=== PATIENT | male | born 1955 | race Caucasian/White ===

== ENCOUNTER → 2020-03-31 15:10 | Outpatient (CLI) | payer BC, SELFPAY ==
--- NOTE | ~2020-03-31 | XR_ITS ---
XR cervical spine 4-5V 03/31/2020 15:37 Indication: Neck pain. Numbness of the hands. Procedure: 5 views of the cervical spine Comparison: No prior studies for comparison. Findings: There is disc narrowing at C5-6 and C6-7 with prominent bridging osteophytes. There is advanced multilevel facet and uncinate hypertrophy. 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 No prevertebral soft tissue abnormality. Lung apices are normal. Remain ing of normal cervical lordosis. Impression: 1: Moderate-severe cervical spondylosis. Reviewed, dictated and finalized at location B. Impression: 1: Moderate-severe cervical spondylosis.
== END ==
PROVIDERS: PCP Family Medicine; Visit Provider Family Medicine
DX: R20.2 Paresthesia of skin (principal); M47.892 Other spondylosis, cervical region
CPT/HCPCS: 72050

== ENCOUNTER 2020-08-27 13:32 | Outpatient (CLI) | payer BC, SELFPAY | END 2020-08-27 13:33 | disposition home or self-care (01) | LOC: ANHCOVIDVC 13:32 | PROVIDERS: PCP Family Medicine | DX: Z23 Encounter for immunization (principal) | CPT/HCPCS: 0001A; 91300 ==

== ENCOUNTER 2020-09-17 13:54 | Outpatient (CLI) | payer BC, SELFPAY | END 2020-09-17 13:55 | disposition home or self-care (01) | LOC: ANHCOVIDVC 13:54 | PROVIDERS: PCP Family Medicine | DX: Z23 Encounter for immunization (principal) | CPT/HCPCS: 0002A; 91300 ==

== ENCOUNTER → 2021-02-03 03:29 | Outpatient (CLI) | payer BC, SELFPAY ==
[2021-02-03 20:00] LABS: SARS-CoV-2 RNA PCR Negative
== END ==
PROVIDERS: Physician Assistant; PCP Family Medicine; Visit Provider Family Medicine
DX: R05 Cough (principal); Z20.822 Contact with and (suspected) exposure to COVID-19
CPT/HCPCS: C9803; U0003; U0005

== ENCOUNTER 2021-08-29 08:09 | Outpatient (CLI) | payer MEDICARE, SELFPAY ==
--- NOTE | 2021-08-29 09:17 | ECG_ITS ---
Measurements Intervals [place] Rate: 68 P: 45 [place]: 209 QRS: 53 QRSD: 115 T: 2 QT: 417 QTc: 445 Interpretive Statements SINUS RHYTHM MODERATE INTRAVENTRICULAR CONDUCTION DELAY (INCOMPLETE RIGHT BUNDLE BRANCH BLOCK) ABNORMAL ECG NO PREVIOUS ECG AVAILABLE FOR COMPARISON Electronically Signed On 08-29-2021 15:37:56 CDT by Doug Stock M.D.
[2021-08-29 09:50] LABS: Basophils Absolute Auto 0.1 K/mm3 (0.0-0.1); Basophils Percent Auto 1.9 % (0.2-1.2); Eosinophils Absolute Auto 0.4 K/mm3 (0-0.3); Eosinophils Percent Auto 6.6 % (0-4.4); Hematocrit 42.5 % (42.0-52.0); Hemoglobin 14.8 g/dL (14.0-18.0); Immature Granulocyte Absolute 0.02 K/mm3 (0.00-0.031); Immature Granulocyte Percent A 0.3 % (0-0.5); Lymphocytes Absolute Auto 2.17 K/mm3 (0.9-3.2); Lymphocytes Percent Auto 36.6 % (18.3-44.2); Mean Corpuscular HGB Conc 34.8 g/dl (32-36); Mean Corpuscular Hemoglobin 31.5 pg (26-34); Mean Corpuscular Volume 90.4 fl (80-100); Mean Platelet Volume 9.8 fl (7.4-10.4); Monocytes Absolute Auto 0.7 K/mm3 (0.1-0.6); Monocytes Percent Auto 11.5 % (2.6-8.5); Neutrophils Absolute Auto 2.6 K/mm3 (1.3-6.7); Neutrophils Percent Auto 43.1 % (45.5-73.1); Platelet Count Result 248 k/mm3 (150-375); Red Cell Distribution Width 13.2 % (11.5-14.5); White Blood Count 5.9 K/mm3 (4.5-10.0)
[2021-08-29 09:56] LABS: Add Urine Microscopic? YES; Appearance Urine Cloudy (Clear); Bilirubin Urine Negative (Negative); Blood Urine 1+ (Negative); Color Urine Yellow (Yellow); Glucose Urine UA Negative (Negative); Ketones Urine Trace mg/dL (Negative); Leukocyte Esterase Ur Negative LEU/UL (Negative); Nitrate Urine Negative (Negative); Protein Urine Negative (Negative); Specific Grav Ur 1.017 (1.001-1.035); Urobilinogen Urine Negative mg/dL (<2.0); WBC Urine 0-3 /hpf
[2021-08-29 10:01] LABS: INR 1.1; Partial Thromboplastin Time 25.9 SECONDS (22.3-36.8)
[2021-08-29 10:05] LABS: Albumin Level 4.6 g/dL (3.5-5.1); Anion Gap 8 mmol/L (8-16); Blood Urea Nitrogen 18 mg/dL (9-20); Calcium 9.1 mg/dL (8.4-10.2); Carbon Dioxide 27 mmol/L (22-30); Chloride 102 mmol/L (98-107); Estimated Glomerular Filt Rate > 60; Glucose 119 mg/dL (65-110); Potassium 3.5 mmol/L (3.4-5.0); Sodium 137 mmol/L (137-145)
[2021-08-29 10:06] LABS: Urine Cotinine NEGATIVE
[2021-08-29 10:08] LABS: Hemoglobin A1C 5.4 % (<5.7)
== END 2021-08-29 08:10 | disposition home or self-care (01) ==
LOC: ANHSURGERY 08:18
PROVIDERS: PCP Family Medicine; Visit Provider Orthopaedic Surgery
DX: M17.11 Unilateral primary osteoarthritis, right knee (principal); Z01.818 Encounter for other preprocedural examination; I45.9 Conduction disorder, unspecified
CPT/HCPCS: 80048; 80307; 81001; 82040; 83036; 85025; 85610; 85730; 87081; 93005

== ENCOUNTER 2021-09-14 00:45 | Day surgery (SDC) | payer MEDICARE, SELFPAY ==
[2021-08-29 08:39] VITALS: BP 149/84; PULSE 69; RESP 16; TEMP 36.4; O2SAT 95; BMI 31.7
--- NOTE | 2021-08-29 08:53 | PC.NURSE ---
Report to the Outpatient Waiting Room, entrance under the green pavilion located off [facility], at time ___10:00AM____ on date __09/14/21 . OR Time: __12:00PM . - You and your visitor will be asked a series of questions to screen for COVID 19 for your protection. - A mask is required within the hospital. Preoperative COVID Testing Requirements: No COVID Test needed if: (proof is required; if not received patient will have Rapid Test prior to entry) - Patient has received COVID Vaccine at least 14 days prior to procedure date or - Patient has positive COVID test result within last 90 days of surgery date. COVID Test needed if above criteria is not met If not COVID vaccinated a COVID test must be conducted within 72 hours of surgery and patient is asked to isolate self from time of testing until procedure. You will go to the [facility] for your COVID testing. The [employer] [facility] site is located at the corner of [address] [facility]. You will only be called if COVID results are positive and your surgeon may reschedule your elective surgery date. Patients may have clear liquids (water, carbonated beverages, clear teas, apple juice) until 3 hours prior to surgery with a maximum of 20 ounces. - No food from midnight until time of surgery - Infants may have breast milk until 4 hours before surgery, formula 6 hours prior to surgery. - Children will be allowed to drink immediately following surgery. If applicable, please bring a bottle or sippy cup to assist with drinking. Juice, water, soda, and popsicles are readily available. For infants on formula, please bring formula the day of surgery. Pacifiers are allowed. Take the following medications with a SIP of water the morning of surgery: __AMLODIPINE, BUSPIRONE, OXYCODONE NEEDED, PRESTIQ Medications to discontinue per physician ____HOLD IBUPROFEN 7 DAYS PRE-OP Date to take last dose 09/07/21 Please no make-up, nail bermudian, hairspray, perfume, deodorant, or body powder the day of surgery. No jewelry (including any body piercings) or valuables the day of surgery, leave them at home. Please take a shower or bath the night before, or the morning of, surgery with an antibacterial soap. Wear comfortable, loose fitting clothing. Children are encouraged to wear pajamas. - Jewelry must be removed prior to entering the operating room. Rings and piercings that are not removed may be cut off. - The hospital will not accept responsibility for valuables. - Please leave all valuables, including medications, at home the day of surgery. If you are going home after surgery, a licensed public transit trolley driver must drive you home. - NO public transportation without another adult. - We recommend that an adult stay with you for 24 hours following discharge. - We also recommend that you do not drive, make important decision, drink alcoholic beverages, or take any drugs that were not prescribed by your health care provider for at least 24 hours after your discharge time. For Pediatric surgeries, we recommend two adults accompany the child home (only one inside the building at this time). One visitor will be allowed to accompany the patient into the hospital. Patients visitor will be instructed to remain with patient at all times or leave the building. We will allow the visitor to come back to the postoperative area when patient is ready. Follow any additional instructions given to you from your surgeon. Telephone instructions given to ___PATIENT and asked if any additional questions and then verbalized understanding. Patient advised to call surgeon office or pre surgery nurse liaison [phone] if any additional questions.
--- NOTE | 2021-09-13 17:43 | WPDANESEPPF ---
Anes - Initial Pre Proc Eval Procedure: Operation Date: 09/14/21 12:00 Proposed Procedures p Right Total Knee Arthroplasty - Slick Collado MD Date/Time: 09/13/21 17:43 Surgeon: Slick Collado MD Pre Op Diagnosis: right knee DJD Patient Data Age: 66 Gender: M Height: 1.83 m Weight: 106.2 kg Last Vital Signs Temp 36.4 C L 08/29/21 08:39 Pulse 69 08/29/21 08:39 Resp 16 08/29/21 08:39 BP 149/84 H 08/29/21 08:39 Pulse Ox 95 08/29/21 08:39 Allergies Allergy/AdvReac Type Severity Reaction Status Date / Time lactose AdvReac Unknown Diarrhea Verified 09/07/21 13:14 Home Medications Medication Instructions Recorded Confirmed Type clindamycin phosphate 1 % topical 1 applic TOPICAL BID #180 ea 06/08/21 09/07/21 Rx swab fenofibrate 160 mg tablet 160 mg PO DAILY #90 tablet 07/04/21 09/07/21 Rx buspirone 15 mg tablet 15 mg PO BID #180 tablet 07/11/21 09/07/21 Rx cyclobenzaprine 10 mg tablet 10 mg PO TID PRN #90 tablet 08/24/21 09/07/21 Rx amlodipine 10 mg PO QAM 08/29/21 09/07/21 History desvenlafaxine succinate 100 mg PO QAM 08/29/21 09/07/21 History hydrochlorothiazide 25 mg PO QAM 08/29/21 09/07/21 History ibuprofen 800 mg PO Q6H PRN 08/29/21 09/07/21 History losartan 25 mg PO QAM 08/29/21 09/07/21 History tacrolimus 1 applic TOPICAL BID PRN 08/29/21 09/07/21 History tamsulosin 0.4 mg PO BID 08/29/21 09/07/21 History oxycodone 20 mg tablet 20 mg PO TID PRN #90 tablet 09/01/21 09/07/21 Rx zolpidem 5 mg tablet 5 mg PO QHS #30 tablet 09/01/21 09/07/21 Rx Results Review: All pre-operative results and documents have been reviewed as part of the pre-operative evaluation. ON LICENSE OF [facility] Past Medical History Medical History Cervical spinal stenosis Chronic narcotic use Degenerative joint disease of knee HLD (hyperlipidemia) HTN (hypertension) Injury of right knee Knee joint effusion Obesity Right knee DJD Right knee pain Tobacco dependence Surgical History Surgical History History of laminectomy History of tonsillectomy S/P rotator cuff repair bilateral Family History Family History Father Cerebrovascular accident Sibling Malignant neoplasm of prostate Mother Family history of lung cancer Social History Social History Social History: Smoking packs per day: 0.75 Smoking cigarettes per day: 15.0 Years smoked: 15 Smoking pack-years: 11.25 Smoking status: Former smoker Tobacco type: cigarettes Second hand tobacco smoke exposure: Yes Smoking end date: 06/11/20 Alcohol intake: current Drinks per week: 2 Substance use: never Substance use type: does not use Additional living arrangements comments: Gender identity (if verbalized by the patient): Male Sexual Orientation (if Verbalized by the Patient): Straight or Heterosexual Spiritual care concerns: No Anes - Eval Final PreProcedure Day of Procedure 09/13/21 17:43 Patient weight: obese Heart: regular rate and rhythm Lungs: clear to auscultation and normal air movement Airway: Mallampati scale class II Neurological: alert and oriented Last oral intake: >/= 8 hours ASA classification: III Emergent: no Anesthetic plan: proceed Anesthesia type and monitoring: general LMA Results Review: All pre-operative results and documents have been reviewed as part of the pre-operative evaluation. Informed Consent: The patient's anesthetic plan and its attendant risks and benefits were discussed with the patient/family/POA. Questions were solicited and answers provided to the satisfaction of the patient/family/POA.
--- NOTE | 2021-09-13 17:44 | WPDANESPNB ---
Anes - Peripheral Nerve Block Date/Time: 09/13/21 17:44 I have discussed with the patient/family/POA the placement of a peripheral nerve block for post-operative pain management, including associated risks, benefits, complications, and side effects. Alternative methods of post-operative analgesia were detailed. Questions were solicited and answers provided to the satisfaction of the patient/family/POA. Time-Out: A pre-procedural Time-Out was completed immediately before starting the procedure and confirmed: Patient Identification, Site, Procedure, Patient Position and the Availability of Requisite Equipment. Clinical Indications: Acute post-operative pain management requested by the operative surgeon. Nerve Block Insertion Note Needle: 22 gauge, stimulating, insulated echogenic needle.
[2021-09-14] VITALS (9 sets, daily range): BP systolic 110–144; BP diastolic 53–79; PULSE 66–88; RESP 15–18; TEMP 36.1–36.8; O2SAT 90–97
--- NOTE | ~2021-09-14 | XR_ITS ---
EXAMINATION: XR knee RT 2V DATE: 09/14/2021 14:52 INDICATION: Postoperative evaluation following right total knee arthroplasty. TECHNIQUE: Anteroposterior and lateral views of the right knee were obtained. COMPARISON: 08/18/2021 FINDINGS: Right total knee arthroplasty without patellar resurfacing appears well seated and in near anatomic a lignment. No fractures identified. Moderate-sized enthesophyte at the proximal pole of the patella. Skin antony and expected postoperative subcutaneous, intramedullary and intra-articular gas. Suggest ion of a wound VAC overlying the cephalad margin of the anterior surgical wound. IMPRESSION: 1. Right total knee arthroplasty, negative for postoperative purposes. Reviewed, dictated and finalized at location B.
--- NOTE | 2021-09-14 07:28 | WPDHPUPDATE1 ---
History and Physical Update Update Date/Time: 09/14/21 07:28 History and Physical has been reviewed, including an updated exam of the patient. There are NO changes in the patient's condition. Risks, benefits, and alternatives have been discussed and questions answered. Patient agrees to proceed with procedure.
--- NOTE | 2021-09-14 11:06 | WPDANESEPPF ---
Anes - Initial Pre Proc Eval Procedure: Operation Date: 09/14/21 12:00 Proposed Procedures p Right Total Knee Arthroplasty - Slick Collado MD Date/Time: 09/14/21 11:06 Surgeon: Slick Collado MD Pre Op Diagnosis: right knee DJD Patient Data Age: 66 Gender: M Height: 1.83 m Weight: 106.2 kg Last Vital Signs Temp 36.4 C L 08/29/21 08:39 Pulse 69 08/29/21 08:39 Resp 16 08/29/21 08:39 BP 149/84 H 08/29/21 08:39 Pulse Ox 95 08/29/21 08:39 Allergies Allergy/AdvReac Type Severity Reaction Status Date / Time lactose AdvReac Unknown Diarrhea Verified 09/07/21 13:14 Home Medications Medication Instructions Recorded Confirmed Type clindamycin phosphate 1 % topical 1 applic TOPICAL BID #180 ea 06/08/21 09/07/21 Rx swab fenofibrate 160 mg tablet 160 mg PO DAILY #90 tablet 07/04/21 09/07/21 Rx buspirone 15 mg tablet 15 mg PO BID #180 tablet 07/11/21 09/07/21 Rx cyclobenzaprine 10 mg tablet 10 mg PO TID PRN #90 tablet 08/24/21 09/07/21 Rx amlodipine 10 mg PO QAM 08/29/21 09/07/21 History desvenlafaxine succinate 100 mg PO QAM 08/29/21 09/07/21 History hydrochlorothiazide 25 mg PO QAM 08/29/21 09/07/21 History ibuprofen 800 mg PO Q6H PRN 08/29/21 09/07/21 History losartan 25 mg PO QAM 08/29/21 09/07/21 History tacrolimus 1 applic TOPICAL BID PRN 08/29/21 09/07/21 History tamsulosin 0.4 mg PO BID 08/29/21 09/07/21 History oxycodone 20 mg tablet 20 mg PO TID PRN #90 tablet 09/01/21 09/07/21 Rx zolpidem 5 mg tablet 5 mg PO QHS #30 tablet 09/01/21 09/07/21 Rx Patient hx anesthesia problems: none Family hx anesthesia problems: none Results Review: All pre-operative results and documents have been reviewed as part of the pre-operative evaluation. PMFSH Past Medical History Medical History Cervical spinal stenosis Chronic narcotic use Degenerative joint disease of knee HLD (hyperlipidemia) HTN (hypertension) Injury of right knee Knee joint effusion Obesity Right knee DJD Right knee pain Tobacco dependence Surgical History Surgical History History of laminectomy History of tonsillectomy S/P rotator cuff repair bilateral Family History Family History Father Cerebrovascular accident Sibling Malignant neoplasm of prostate Mother Family history of lung cancer Social History Social History Social History: Smoking packs per day: 0.5 Smoking cigarettes per day: 10.0 Years smoked: 15 Smoking pack-years: 7.50 Smoking status: Former smoker Tobacco type: cigarettes Second hand tobacco smoke exposure: Yes Smoking end date: 06/11/20 Alcohol intake: current Drinks per week: 2 Substance use: never Substance use type: does not use Living arrangements: with family Additional living arrangements comments: Gender identity (if verbalized by the patient): Male Sexual Orientation (if Verbalized by the Patient): Straight or Heterosexual Spiritual care concerns: No Anes - Eval Final PreProcedure Day of Procedure 09/14/21 11:06 Patient weight: obese Heart: regular rate and rhythm Lungs: decreased breath sounds Airway: Mallampati scale class II Neurological: alert and oriented Last oral intake: >/= 8 hours ASA classification: III Emergent: no Anesthetic plan: proceed Anesthesia type and monitoring: general LMA and standard monitoring Results Review: All pre-operative results and documents have been reviewed as part of the pre-operative evaluation. Informed Consent: The patient's anesthetic plan and its attendant risks and benefits were discussed with the patient/family/POA. Questions were solicited and answers provided to the satisfaction of the patient/family/POA.
[2021-09-14] MEDS: LACTATED RINGERS 1,000 ML 30 ML IV CONT ×2 (11:20→14:40)
[2021-09-14] MEDS: ACETAMINOPHEN 500 MG TABLET 1000 MG PO (11:23)
[2021-09-14] MEDS: TRANEXAMIC ACID 1,000MG/ISO100 1,000 MG/100 ML BAG 200 MG IVPB (11:23)
[2021-09-14] MEDS: ceFAZolin 2 GM/D5W 50 ML 2 GM/50 ML BAG IVPB ×2 (11:51→18:30)
--- NOTE | 2021-09-14 12:22 | WPDANESPNB ---
Anes - Peripheral Nerve Block Date/Time: 09/14/21 12:22 I have discussed with the patient/family/POA the placement of a peripheral nerve block for post-operative pain management, including associated risks, benefits, complications, and side effects. Alternative methods of post-operative analgesia were detailed. Questions were solicited and answers provided to the satisfaction of the patient/family/POA. Time-Out: A pre-procedural Time-Out was completed immediately before starting the procedure and confirmed: Patient Identification, Site, Procedure, Patient Position and the Availability of Requisite Equipment. Clinical Indications: Acute post-operative pain management requested by the operative surgeon. Nerve Block Insertion Note Anes-nerve block: adductor canal right Patient position: supine Skin prep: chlorhexidine Needle: 22 gauge, stimulating, insulated echogenic needle. Needle length: 80 mm Technique: ultrasound Technique comment: mid2mg, [id number] Injectate: bupivacaine 0.5% with epi 5 mcg/ml (30ml no epi) Observations: tolerated well Complications: none Procedure start time:: 1135 Procedure end time:: 1147
[2021-09-14] MEDS: GENTAMICIN BONE CEMENT REFOBACIN 1 EACH TOPICAL (13:15)
[2021-09-14] MEDS: TRANEXAMIC ACID 1,000 MG/10 ML AMPUL 1000 MG IV PUSH (13:38)
--- NOTE | 2021-09-14 15:11 | W.PM.PROC2 ---
Procedure Note - Detailed Date of Procedure 09/14/21 Pre-op Diagnosis right knee DJD Post-op Diagnosis Same Procedure Performed R TKA Surgeon Slick Collado MD Anesthesia General Description of Procedure THE RIGHT KNEE WAS PREPPED AND DRAPED IN THE STERILE FASHION. THERE WAS A 20 DEGREE FLEXION CONTRACTURE. A MIDLINE SKIN INCISION WAS MADE. HE HAD MULTIPLE VARICOSITIES UNDER THE SKIN AND THE PERIARTICULAR REGION. A MEDIAL PARAPATELLAR ARTHROTOMY WAS MADE. THE PATELLA WAS EVERTED. THERE WAS TRICOMPARTMENT DJD. THERE WAS MINIMAL PATELLA DJD. AN INTRAMEDULLARY FLOYD WAS PLACED IN THE FEMUR. A DISTAL FEMORAL CUT WAS MADE IN 5 DEGREES OF VALGUS REMOVING APPROXIMATELY 11 MM OF BONE FROM THE DISTAL FEMUR. THE FEMUR WAS SIZED TO 70. A FEMORAL CUTTING BLOCK WAS PLACED IN 3 DEGREES OF EXTERNAL ROTATION AND IN ALIGNMENT WITH ALEXEI'S LINE AND THE TRANSEPICONDYLAR AXIS. ANTERIOR POSTERIOR AND CHAMFER CUTS WERE MADE. THE CUTS WERE EXCELLENT. NEXT AN INTRAMEDULLARY CUTTING GUIDE WAS PLACED IN THE TIBIA. A TRANS TIBIAL CUT WAS MADE ALONG THE LONG AXIS OF THE TIBIA. APPROXIMATELY 10 MM OF BONE WAS REMOVED FROM THE HIGH SIDE OF THE TIBIA. THE TIBIA WAS THEN PLANED TO A SMOOTH SURFACE. POSTERIOR FEMORAL OSTEOPHYTES WERE REMOVED FROM THE FEMORAL CONDYLES. AN 83 TIBIAL TRIAL WAS PLACED IN ALIGNMENT WITH THE 1/3 MEDIAL ASPECT OF THE TIBIAL TUBERCLE. THEN A 70 FEMORAL TRIAL COMPONENT WAS PLACED. BOTH HAD EXCELLENT FITS. EVENTUALLY A 12 MM CR POLYETHYLENE TRIAL COMPONENT WAS PLACED. THE KNEE WAS TAKEN THROUGH A RANGE OF MOTION. THE KNEE CAME OUT TO FULL EXTENSION. THERE WAS NO ABNORMAL TILT TO THE PATELLA. THERE WAS GOOD A/P AND VARUS/VALGUS STABILITY. THERE WAS NO EXCESSIVE ROLL BACK WITH FLEXION. THE TRIAL COMPONENTS WERE REMOVED. THEN A 70 FEMORAL COMPONENT AND 83 TIBIAL COMPONENT WITH A 12 CR POLYETHYLENE COMPONENT WERE CEMENTED INTO PLACE. ONCE THE CEMENT WAS HARD THE KNEE WAS TAKEN THROUGH A ROM AGAIN AND FOUND TO BE STABLE WITH NO PATELLA TILT NO EXCESSIVE ROLL BACK WITH FLEXION AND GOOD STABILITY WITH COMPLETE AND FULL EXTENSION. THE KNEE WAS IRRIGATED WITH STERILE BETADINE AND WATER FOR ABOUT 3 MINUTES. THE BLEEDERS WERE CAUTERIZED. THE ARTHROTOMY WAS REPAIRED WITH NUMBER 1 VICRYL. THE SUB CUTANEOUS LAYER WITH 2-0 VICRYL AND THE SKIN WITH TAMMIE. THE WOUND WAS WASHED AND A STERILE PROVENA DRESSING WAS APPLIED. PATIENT WAS EXTUBATED. Estimated Blood Loss -200.0 Pathology None sent Complications No immediate complications Condition Stable Disposition PACU
--- NOTE | 2021-09-14 16:58 | ADMGEN ---
This patient, Anthony Chen III, was admitted to Medical Room 246-01. Patient/family oriented to hospital policies and general routines including ID bracelet, bed and alarms, visiting hours, pain management, procedures, bathroom and other care routines, personal items, smoking policy, room service/diet, and visiting hours. Information on how to activate the Rapid Response Team has been discussed. Patient/Family are encouraged to report perceived risks to care and to ask questions if they do not understand what they are told or what they should do.
[2021-09-14] MEDS: TAMSULOSIN HCL 0.4 MG CAPSULE PO (17:05)
[2021-09-14] MEDS: SENNA/DOCUSATE SODIUM TABLET 2 TAB PO (17:05)
[2021-09-14] MEDS: KETOROLAC 15 MG/ML VIAL (*BKC) IV PUSH ×2 (17:06→23:49)
[2021-09-14] MEDS: SODIUM CHLORIDE 0.9% IV 1,000 ML 125 ML IV CONT (17:44)
[2021-09-14] MEDS: ZOLPIDEM TARTRATE (*CRX) 5 MG TABLET PO (20:44)
[2021-09-14] MEDS: oxyCODONE/ACETAMINOPHEN (*CRX) 5-325 MG TABLET 2 TABLET PO (20:44)
[2021-09-15 01:44] VITALS: BP 124/66; PULSE 57; RESP 18; TEMP 36.4; O2SAT 93
[2021-09-15] MEDS: oxyCODONE/ACETAMINOPHEN (*CRX) 5-325 MG TABLET 1 TABLET PO ×3 (02:24→12:34)
[2021-09-15] MEDS: ceFAZolin 2 GM/D5W 50 ML 2 GM/50 ML BAG IVPB ×2 (02:24→10:39)
[2021-09-15] MEDS: KETOROLAC 15 MG/ML VIAL (*BKC) IV PUSH ×2 (05:05→11:53)
[2021-09-15 06:00] VITALS: BP 118/64; PULSE 73; RESP 16; TEMP 36.6; O2SAT 96
[2021-09-15 06:00] LABS: Basophils Percent Auto 0.2 % (0.2-1.2); Hematocrit 35.6 % (42.0-52.0); Hemoglobin 11.7 g/dL (14.0-18.0); Immature Granulocyte Absolute 0.05 K/mm3 (0.00-0.031); Immature Granulocyte Percent A 0.4 % (0-0.5); Lymphocytes Absolute Auto 1.23 K/mm3 (0.9-3.2); Lymphocytes Percent Auto 8.8 % (18.3-44.2); Mean Corpuscular HGB Conc 32.9 g/dl (32-36); Mean Corpuscular Hemoglobin 31.5 pg (26-34); Mean Corpuscular Volume 95.7 fl (80-100); Mean Platelet Volume 10.3 fl (7.4-10.4); Neutrophils Absolute Auto 11.6 K/mm3 (1.3-6.7); Neutrophils Percent Auto 83.6 % (45.5-73.1); Platelet Count Result 232 k/mm3 (150-375); Red Blood Count 3.72 M/mm3 (4.6-6.20); Red Cell Distribution Width 13.2 % (11.5-14.5); White Blood Count 13.9 K/mm3 (4.5-10.0)
[2021-09-15 06:16] LABS: Anion Gap 6 mmol/L (8-16); Blood Urea Nitrogen 19 mg/dL (9-20); Calcium 7.8 mg/dL (8.4-10.2); Carbon Dioxide 24 mmol/L (22-30); Chloride 107 mmol/L (98-107); Estimated CRCL calculation 99 ml/min; Estimated Glomerular Filt Rate > 60; Glucose 127 mg/dL (65-110); Potassium 3.9 mmol/L (3.4-5.0); Sodium 137 mmol/L (137-145)
[2021-09-15] MEDS: LOSARTAN POTASSIUM 25 MG TABLET PO (08:29)
[2021-09-15] MEDS: DESVENLAFAXINE SUCCINATE 50 MG TAB.ER.24H 100 MG PO (08:29)
[2021-09-15] MEDS: SENNA/DOCUSATE SODIUM TABLET 2 TAB PO (08:30)
[2021-09-15] MEDS: FENOFIBRATE 160 MG TABLET PO (08:30)
[2021-09-15] MEDS: hydroCHLOROthiazide 25 MG TABLET PO (08:30)
[2021-09-15] MEDS: ASPIRIN 325 MG ENTERIC TABLET 650 MG PO (08:30)
[2021-09-15] MEDS: TAMSULOSIN HCL 0.4 MG CAPSULE PO (08:30)
--- NOTE | 2021-09-15 09:37 | PM.PNORT ---
Progress Note: A&P Assessment and Plan (1) S/P total knee arthroplasty: Qualifiers: Laterality: right Qualified Code(s): Z96.651 - Presence of right artificial knee joint Code(s): Z96.659 - Presence of unspecified artificial knee joint Status: Acute Assessment and Plan: POD #1: Right TKA Continue PT/OT. WBAT. Walker. Pain control. Ice. DVT prophylaxis. SCDs. Incentive Spirometry. Monitor dressing. Change prior to discharge. Discharge instructions/medications reviewed. Dispo: Home with Home Health pending clearance from PT/OT. Subjective Subjective Date/Time Seen: 09/15/21 09:37 Post Op day: 1 Interval history: POD #1: Right TKA Patient doing well. Pain well controlled. No new concerns. Hopeful for discharge home. Review of Systems Review of Systems: All systems reviewed & are unremarkable except as noted in HPI and below Constitutional: Constitutional: Denies fever(s) and Denies headache(s) ENT: Denies headache(s) Cardiovascular: Cardiovascular: Denies chest pain, Denies diaphoresis, Denies palpitations and Denies dyspnea Respiratory: Respiratory: Denies dyspnea Gastrointestinal: Gastrointestinal: Denies abdominal pain, Denies constipation, Denies nausea and Denies vomiting Genitourinary: Genitourinary: Denies dysuria and Reports nocturia Musculoskeletal: Musculoskeletal: Reports arthralgias (Right Knee ) and Reports joint swelling (Right Knee ) Neurologic: Denies headache(s) Endocrine: Endocrine: Denies palpitations Exam Const: General: comfortable and no acute distress Resp: Effort & Inspection: normal respiratory effort Cardio: Rate: regular rate Rhythm: regular rhythm GI: GI Palp: Yes Soft to palpation, No Tenderness to palpation present (GI) and No Guarding due to palpation present (GI) Skin: Wounds: wounds noted Other: Incision c/d/i. No surrounding redness/warmth. No hematoma. Mild ecchymosis. No wound dehiscence Neuro: Cognition (Neuro): normal cognition Other: NV intact aside from block. Moves toes. Sensation intact to light touch. +ankle dorsiflexion/plantarflexion. Extrem: Right upper extremity: normal to inspection, full ROM and normal capillary refill Left upper extremity: normal to inspection, full ROM and normal capillary refill Right lower extremity: normal to inspection, full ROM (ROM limited due to recent surgical intervention ) and knee Details: tenderness (diffuse, mild ) and swelling (diffuse, mild ) Left lower extremity: normal to inspection Psych: Mental Status: mental status grossly normal Objective Data Vital Signs Vital Signs: Vital Signs - 24 hr 09/14/21 10:57 09/14/21 14:40 09/14/21 14:55 Temperature 36.1 C L 36.2 C L Pulse Rate 66 88 87 Respiratory Rate 18 18 16 Blood Pressure 144/71 H 110/68 131/79 Pulse Oximetry 96 95 97 09/14/21 15:10 09/14/21 15:25 09/14/21 15:43 Temperature Pulse Rate 82 83 78 Respiratory Rate 15 15 16 Blood Pressure 124/75 128/75 111/69 Pulse Oximetry 97 93 97 09/14/21 17:27 09/14/21 17:44 09/14/21 21:03 Temperature 36.8 C 36.7 C 36.5 C Pulse Rate 70 69 67 Respiratory Rate 16 17 16 Blood Pressure 116/64 114/53 L 132/67 Pulse Oximetry 90 95 96 09/15/21 01:44 09/15/21 06:00 Temperature 36.4 C 36.6 C Pulse Rate 57 L 73 Respiratory Rate 18 16 Blood Pressure 124/66 118/64 Pulse Oximetry 93 96 Intake/Output Intake/Output: Intake & Output 09/12/21 09/13/21 09/14/21 09/15/21 23:59 23:59 23:59 23:59 Intake Total 1190 310 Output Total 700 500 Balance 490 -190 Meds/Results Medications: Active Medications Generic Name Dose Route Start Last Admin Trade Name Dawna PRN Reason Stop Dose Admin Acetaminophen 1,000 mg 09/14/21 15:59 Acetaminophen 500 Mg Tablet PO Q6H PRN Pain Rated 1-3 Aspirin 650 mg 09/15/21 09:00 09/15/21 08:30 Aspirin 325 Mg Enteric Tablet PO 650 mg DAILY HARMAN Administration Cyclobenzaprine HCl 10 mg 0
[2021-09-15 09:44] VITALS: BP 126/69; PULSE 61; RESP 18; TEMP 37.1; O2SAT 98
--- NOTE | 2021-09-15 14:34 | PM.DS ---
DS: Admitting Diagnosis Discharge Date 09/15/21 Admitting Diagnosis Right knee severe DJD DS: Discharge Diagnosis Discharge Diagnosis (1) S/P total knee arthroplasty: Qualifiers: Laterality: right Qualified Code(s): Z96.651 - Presence of right artificial knee joint Code(s): Z96.659 - Presence of unspecified artificial knee joint Status: Acute Assessment and Plan: POD #1: Right TKA Continue PT/OT. WBAT. Walker. Pain control. Ice. DVT prophylaxis. SCDs. Incentive Spirometry. Monitor dressing. Change prior to discharge. Discharge instructions/medications reviewed. Dispo: Home with Home Health pending clearance from PT/OT. DS: Summary Hospital Course Reason for hospitalization: right total knee arthroplasty Hospital Course: 66-year-old male admitted status post right total knee arthroplasty for postoperative medical care, pain control and mobilization with physical and occupational therapy. Patient progressed very well on postop day 1. His pain was well controlled. His labs are stable. He has a Prevena dressing in place which is functioning well as a wound VAC. Patient will be discharged home with this device and will transition to a Mepilex Silver dressing in 5 days. Patient will follow up in the outpatient orthopedic clinic as previously scheduled. Status at Discharge Functional status at discharge: uses cane/walker Overall status at discharge: patient is not back to baseline Time Spent with Patient Time attestation: Total time spent providing and/or coordinating discharge services: Exam Const: General: comfortable and no acute distress Resp: Effort & Inspection: normal respiratory effort Cardio: Rate: regular rate Rhythm: regular rhythm Skin: Wounds: wounds noted Other: Incision c/d/i. No surrounding redness/warmth. No hematoma. Mild ecchymosis. No wound dehiscence Neuro: Cognition (Neuro): normal cognition Other: NV intact aside from block. Moves toes. Sensation intact to light touch. +ankle dorsiflexion/plantarflexion. Extrem: Right upper extremity: normal to inspection, full ROM and normal capillary refill Left upper extremity: normal to inspection, full ROM and normal capillary refill Right lower extremity: normal to inspection, full ROM (ROM limited due to recent surgical intervention ) and knee Details: tenderness (diffuse, mild ) and swelling (diffuse, mild ) Left lower extremity: normal to inspection Psych: Mental Status: mental status grossly normal DS: Data Data Completed and Pending Labs on day of discharge: Labs from last 24 hours 09/15/21 09/15/21 05:25 05:25 WBC 13.9 H RBC 3.72 L Hgb 11.7 L D Hct 35.6 L MCV 95.7 MCH 31.5 MCHC 32.9 RDW 13.2 Plt Count 232 MPV 10.3 Immature Gran % (Auto) 0.4 Neut % (Auto) 83.6 H Lymph % (Auto) 8.8 L [place] % (Auto) 7.0 Eos % (Auto) 0.0 Baso % (Auto) 0.2 Lymph # (Auto) 1.23 [place] # (Auto) 1.0 H Eos # (Auto) 0.0 Baso # (Auto) 0.0 Abs Immat Gran (auto) 0.05 H Absolute Neuts (auto) 11.6 H Absolute Nucleated RBC 0.0 Nucleated RBC % 0.0 Sodium 137 Potassium 3.9 Chloride 107 Carbon Dioxide 24 Anion Gap 6 L BUN 19 Creatinine 0.80 Estim Creat Clear Calc 99 Estimated GFR > 60 Glucose 127 H Calcium 7.8 L Discharge Plan Discharge Patient Disposition: Home Health Service Discharge Instructions: Post Op Total Knee Replacement Instructions Dr. Slick Collado [phone] ? We plan to keep your Prevena dressing in place x5 days. If the battery stops working, you may remove and place the Mepilex Silver dressing. Otherwise, transition to Mepilex silver on post op day 5. Then remove on POD #14. ? You may shower with your dressing but do not submerge in a bath tub. ? Do not drive or operate machinery until you are released by Dr. Collado. ? Do not walk without a walker for any reason until you are released by Dr. Collado. ? Continue
== END 2021-09-15 12:45 | disposition home health service (06) ==
LOC: ANHSURGERY 10:48 → ANH2MED 16:26
PROVIDERS: PCP Family Medicine; Visit Provider Orthopaedic Surgery
PROC: (CPT 27447; principal; 2021-09-14 12:00)
DX: M17.11 Unilateral primary osteoarthritis, right knee (principal); M25.561 Pain in right knee; M48.02 Spinal stenosis, cervical region; E78.5 Hyperlipidemia, unspecified; I10 Essential (primary) hypertension; G89.18 Other acute postprocedural pain; Z87.891 Personal history of nicotine dependence; E66.9 Obesity, unspecified; Z68.32 Body mass index [BMI] 32.0-32.9, adult
CPT/HCPCS: 27447; 64447; 36415; 73560; 80048; 85025; 86850; 86900; 86901; 97110; 97161; 97165; 97535; A9270; C1713; C1776; J0171; J0690; J1100; J1885; J2250; J2270; J2405; J2704; J2795; J3010; J7030; J7120

== ENCOUNTER 2021-10-17 17:13 | Emergency (ER) | payer MEDICARE, SELFPAY ==
--- NOTE | ~2021-10-17 | XR_ITS ---
EXAM: XR knee RT 3V HISTORY: fall TODAY, sutures open - injury (TKR in September) COMPARISON: 09/19/2021. FINDINGS: Osteopenia. Quadriceps enthesopathy. Uncomplicated appearing right total knee arthroplasty hardware. Moderate joint effusion. Anterior soft tissue swelling. IMPRESSION: No acute osseous finding in the right knee. Uncomplicated right knee arthroplasty. Anterior knee soft tissue swelling. Reviewed, dictated and finalized at location K. IMPRESSION: No acute osseous finding in the right knee. Uncomplicated right knee arthroplas ty. Anterior knee soft tissue swelling.
[2021-10-17 17:17] VITALS: BP 132/82; PULSE 73; RESP 16; TEMP 36.9; O2SAT 98
--- NOTE | 2021-10-17 18:49 | ED.WOUNDLAC ---
HPI - Wound/Laceration General Chief Complaint: Wound/Laceration Stated Complaint: right knee injury (busted sutures from TKR) Time Seen by Provider: 10/17/21 18:38 History of Present Illness HPI narrative: 66-year-old male presents to the emergency room for evaluation of right knee laceration. Patient states he was stepping out of his truck and he fell landing on the ground. Patient recently had a total right knee replacement. Tetanus is up-to-date. Patient was amatory following the incident Related Data Home Medications Medication Instructions Recorded Confirmed amlodipine 10 mg PO QAM 08/29/21 10/06/21 desvenlafaxine succinate 100 mg PO QAM 08/29/21 10/06/21 hydrochlorothiazide 25 mg PO QAM 08/29/21 10/06/21 losartan 25 mg PO QAM 08/29/21 10/06/21 tacrolimus 1 applic TOPICAL BID PRN 08/29/21 10/06/21 tamsulosin 0.4 mg PO BID 08/29/21 10/06/21 ciclopirox 1 ea TOPICAL PRN PRN 09/14/21 10/06/21 Allergies Allergy/AdvReac Type Severity Reaction Status Date / Time lactose AdvReac Unknown Diarrhea Verified 10/17/21 17:21 Review of Systems Review of Systems: CONSTITUTIONAL: Denies fever, chills, or sweats. EYES: Denies visual changes, redness, or discharge. ENT: Denies rhinorrhea, congestion, sore throat, or otalgia. CARDIOVASCULAR: Denies chest pain, palpitations, or edema. RESPIRATORY: Denies cough or dyspnea. GASTROINTESTINAL: Denies abdominal pain, nausea, vomiting, or diarrhea. GENITOURINARY: Denies dysuria or hematuria. SKIN: Reports laceration right knee MUSCULOSKELETAL: Reports right knee tenderness NEUROLOGIC: Denies headache, numbness, dizziness, or weakness. PSYCHIATRIC: Denies anxiety or depression. [facility] Past Medical History Medical History Cervical spinal stenosis Chronic narcotic use Degenerative joint disease of knee HLD (hyperlipidemia) HTN (hypertension) Injury of right knee Knee joint effusion Obesity Right knee DJD Right knee pain Tobacco dependence Surgical History Surgical History History of laminectomy History of tonsillectomy S/P rotator cuff repair bilateral S/P total knee arthroplasty Family History Family History Father Cerebrovascular accident Sibling Malignant neoplasm of prostate Mother Family history of lung cancer Social History Social History Social History: Smoking packs per day: 0.5 Smoking cigarettes per day: 10.0 Years smoked: 15 Smoking pack-years: 7.50 Second hand tobacco smoke exposure: Yes Alcohol intake: current Drinks per week: 2 Substance use: never Substance use type: does not use Additional living arrangements comments: Gender identity (if verbalized by the patient): Male Sexual Orientation (if Verbalized by the Patient): Straight or Heterosexual Spiritual care concerns: No Exam Narrative: GENERAL: Well-appearing, well-nourished, and in no acute distress. HEAD: Normocephalic, atraumatic. EYES: PERRLA and EOMI. CHEST: Clear to auscultation. No respiratory distress. No wheezes rales or rhonchi HEART: Regular rate and rhythm. No murmur heard. Normal peripheral pulses. ABDOMEN: Soft, nontender, nondistended, normal active bowel sounds. EXTREMITIES: Normal range of motion. No edema. SKIN: 3 cm linear laceration to right knee NEURO: No focal deficits. Alert and oriented x3. PSYCH: Normal mood and affect. Course Vital Signs Vital signs: Vital Signs Temperature 36.9 C 10/17/21 17:17 Pulse Rate 73 10/17/21 17:17 Respiratory Rate 16 10/17/21 17:17 Blood Pressure 132/82 10/17/21 17:17 Pulse Oximetry 98 10/17/21 17:17 Temperature 36.9 C 10/17/21 17:17 Pulse Rate 73 10/17/21 17:17 Respiratory Rate 16 10/17/21 17:17 Blood Pressure 132/82 10/17/21 17
[2021-10-17] MEDS: LIDO 1%/EPINEPHRINE 1:100,000 10 ML VIAL INFILTRATE (19:14)
[2021-10-17 19:37] VITALS: BP 148/90; PULSE 82; RESP 16; TEMP 36.8
== END 2021-10-17 19:37 | disposition home or self-care (01) ==
PROVIDERS: Emergency Provider Nurse Practitioner Family; PCP Family Medicine
DX: S81.011A Laceration without foreign body, right knee, initial encounter (principal); E78.5 Hyperlipidemia, unspecified; I10 Essential (primary) hypertension; E66.9 Obesity, unspecified; Z68.30 Body mass index [BMI] 30.0-30.9, adult; Z96.651 Presence of right artificial knee joint; F17.210 Nicotine dependence, cigarettes, uncomplicated; W17.89XA Other fall from one level to another, initial encounter
CPT/HCPCS: 12002; 73562; 99283

== ENCOUNTER 2021-10-18 15:43 | Day surgery (SDC) | payer MEDICARE, SELFPAY ==
[2021-10-18] VITALS (11 sets, daily range): BP systolic 112–138; BP diastolic 63–87; PULSE 63–100; RESP 12–20; TEMP 35.6–36.7; O2SAT 92–100; BMI 30.7
--- NOTE | 2021-10-18 13:02 | PC.NURSE ---
Report to the Outpatient Waiting Room, entrance under the green pavilion located off [facility], at time _1545__ on date _10-18-21_. OR Time: __1800__. - You and your visitor will be asked a series of questions to screen for COVID 19 for your protection. - Only one visitor is allowed at this time. - The patient visitor is requested to leave or wait in car when not with patient. - A mask is required within the hospital. Patients may have clear liquids (water, carbonated beverages, clear teas, apple juice) until 3 hours prior to surgery with a maximum of 20 ounces. - No food from midnight until time of surgery Take the following medications with a SIP of water the morning of surgery: Medications to discontinue per physician Date to take last dose Please no make-up, nail hebrew, hairspray, perfume, deodorant, or body powder the day of surgery. No jewelry (including any body piercings) or valuables the day of surgery, leave them at home. Please take a shower or bath the night before, or the morning of, surgery with an antibacterial soap. Wear comfortable, loose fitting clothing. Children are encouraged to wear pajamas. - Jewelry must be removed prior to entering the operating room. Rings and piercings that are not removed may be cut off. - The hospital will not accept responsibility for valuables. - Please leave all valuables, including medications, at home the day of surgery. If you are going home after surgery, a licensed steam train driver must drive you home. - NO public transportation without another adult. - We recommend that an adult stay with you for 24 hours following discharge. - We also recommend that you do not drive, make important decision, drink alcoholic beverages, or take any drugs that were not prescribed by your health care provider for at least 24 hours after your discharge time. Follow any additional instructions given to you from your surgeon. If you or anyone in your household have experienced Covid symptoms in the past week, please notify your surgeon or the nurse liaison at the phone number below for possible testing. Telephone instructions given to ___Patient and asked if any additional questions and then verbalized understanding. Patient advised to call surgeon office or pre surgery nurse liaison [phone] if any additional questions.
[2021-10-18] MEDS: LACTATED RINGERS 1,000 ML 30 ML IV CONT ×2 (16:30→18:55)
[2021-10-18] MEDS: ACETAMINOPHEN 500 MG TABLET 1000 MG PO (16:39)
--- NOTE | 2021-10-18 16:40 | SUR.PREOP ---
1630 - pt stated that he took his Celebrex this morning.
--- NOTE | 2021-10-18 16:50 | WPDANESEPPF ---
Anes - Initial Pre Proc Eval Procedure: Operation Date: 10/18/21 18:00 Proposed Procedures p Incision and Drainage Right Knee - Slick Collado MD Date/Time: 10/18/21 16:50 Surgeon: Slick Collado MD Pre Op Diagnosis: right knee wound dehiscence Patient Data Age: 66 Gender: M Height: 1.8 m Weight: 101 kg Last Vital Signs Temp 36.7 C 10/18/21 16:05 Pulse 100 10/18/21 16:05 Resp 20 10/18/21 16:05 BP 138/87 10/18/21 16:05 Pulse Ox 98 10/18/21 16:05 Allergies Allergy/AdvReac Type Severity Reaction Status Date / Time lactose AdvReac Mild Diarrhea Verified 10/18/21 12:49 Home Medications Medication Instructions Recorded Confirmed Type fenofibrate 160 mg tablet 160 mg PO DAILY #90 tablet 07/04/21 10/18/21 Rx buspirone 15 mg tablet 15 mg PO BID #180 tablet 07/11/21 10/18/21 Rx amlodipine 10 mg PO QAM 08/29/21 10/18/21 History desvenlafaxine succinate 100 mg PO QAM 08/29/21 10/18/21 History hydrochlorothiazide 25 mg PO QAM 08/29/21 10/06/21 History losartan 25 mg PO QAM 08/29/21 10/18/21 History tacrolimus 1 applic TOPICAL BID PRN 08/29/21 10/18/21 History tamsulosin 0.4 mg PO BID 08/29/21 10/18/21 History ciclopirox 1 ea TOPICAL PRN PRN 09/14/21 10/18/21 History cyclobenzaprine 10 mg tablet 10 mg PO TID PRN #90 tablet 09/26/21 10/18/21 Rx oxycodone 20 mg tablet 20 mg PO TID PRN #90 tablet 09/28/21 10/18/21 Rx zolpidem 5 mg tablet 5 mg PO QHS #30 tablet 09/28/21 10/18/21 Rx cephalexin 500 mg PO Q12H #20 cap 10/17/21 10/18/21 Rx celecoxib 200 mg PO DAILY 10/18/21 10/18/21 History Patient hx anesthesia problems: none Family hx anesthesia problems: none Results Review: All pre-operative results and documents have been reviewed as part of the pre-operative evaluation. [facility] Past Medical History Medical History Cervical spinal stenosis Chronic narcotic use Degenerative joint disease of knee HLD (hyperlipidemia) HTN (hypertension) Injury of right knee Knee joint effusion Obesity Right knee DJD Right knee pain Tobacco dependence Surgical History Surgical History History of laminectomy History of tonsillectomy S/P rotator cuff repair bilateral S/P total knee arthroplasty Family History Family History Father Cerebrovascular accident Sibling Malignant neoplasm of prostate Mother Family history of lung cancer Social History Social History (Updated 10/18/21 @ 12:43 by Gabrielle Valadez MA) Social History: Smoking packs per day: 0.5 Smoking cigarettes per day: 10.0 Years smoked: 15 Smoking pack-years: 7.50 Smoking status: Former smoker Tobacco type: cigarettes Second hand tobacco smoke exposure: Yes Alcohol intake: current Drinks per week: 2 Substance use: never Substance use type: does not use Living arrangements: with family Additional living arrangements comments: Gender identity (if verbalized by the patient): Male Sexual Orientation (if Verbalized by the Patient): Straight or Heterosexual Spiritual care concerns: No Anes - Eval Final PreProcedure Day of Procedure 10/18/21 16:50 Patient weight: obese Heart: regular rate and rhythm Lungs: clear to auscultation and normal air movement Airway: Mallampati scale class II Neurological: alert and oriented Last oral intake: >/= 8 hours ASA classification: III Emergent: no Anesthetic plan: proceed Anesthesia type and monitoring: general LMA and standard monitoring Results Review: All pre-operative results and documents have been reviewed as part of the pre-operative evaluation. Informed Consent: The patient's anesthetic plan and its attendant risks and benefits were discussed with the patient/family/POA. Questions were solicited and answers provided to the satisfaction of the patient/family/POA.
--- NOTE | 2021-10-18 17:24 | WPDHPUPDATE1 ---
History and Physical Update Update Date/Time: 10/18/21 17:24 History and Physical has been reviewed, including an updated exam of the patient. There are NO changes in the patient's condition. Risks, benefits, and alternatives have been discussed and questions answered. Patient agrees to proceed with procedure.
[2021-10-18] MEDS: ceFAZolin 2 GM/D5W 50 ML 2 GM/50 ML BAG IVPB (17:36)
[2021-10-18] MEDS: ceFAZolin SODIUM 1 GM VIAL 3 GM IRRIGATION (18:10)
[2021-10-18] MEDS: TRANEXAMIC ACID 1,000 MG/10 ML AMPUL 1000 MG IV PUSH (18:22)
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
[2021-10-18] MEDS: fentaNYL CITRATE INJ (*CRX) 100 MCG/2 ML VIAL 25 MCG IV PUSH ×4 (19:35→19:50)
--- NOTE | 2021-10-18 20:34 | ADMGEN ---
This patient, Anthony Chen III, was admitted to 2 Medical Room 249-01. Patient/family oriented to hospital policies and general routines including ID bracelet, bed and alarms, visiting hours, pain management, procedures, bathroom and other care routines, personal items, smoking policy, room service/diet, and visiting hours. Information on how to activate the Rapid Response Team has been discussed. Patient/Family are encouraged to report perceived risks to care and to ask questions if they do not understand what they are told or what they should do.
[2021-10-18] MEDS: HYDROcodone/acetaminophen (*CRX) 7.5-325 MG TABLET 2 TAB PO (21:17)
[2021-10-18] MEDS: busPIRone HCL 5 MG TABLET 15 MG PO (21:18)
[2021-10-18] MEDS: TAMSULOSIN HCL 0.4 MG CAPSULE PO (21:19)
[2021-10-18] MEDS: CYCLOBENZAPRINE HCL 10 MG TABLET PO (22:29)
[2021-10-18] MEDS: ZOLPIDEM TARTRATE (*CRX) 5 MG TABLET PO (22:29)
[2021-10-18] MEDS: FAMOTIDINE 20 MG TABLET PO (22:48)
[2021-10-19] MEDS: KETOROLAC 15 MG/ML VIAL (*BKC) IM ×3 (00:01→11:54)
[2021-10-19] MEDS: ceFAZolin 2 GM/D5W 50 ML 2 GM/50 ML BAG IVPB ×2 (01:32→10:10)
[2021-10-19 03:39] VITALS: BP 103/48; PULSE 67; RESP 16; TEMP 35.7; O2SAT 94
[2021-10-19 06:12] LABS: Basophils Absolute Auto 0.1 K/mm3 (0.0-0.1); Basophils Percent Auto 1.5 % (0.2-1.2); Eosinophils Absolute Auto 0.4 K/mm3 (0-0.3); Eosinophils Percent Auto 6.4 % (0-4.4); Hematocrit 38.5 % (42.0-52.0); Hemoglobin 12.4 g/dL (14.0-18.0); Immature Granulocyte Absolute 0.01 K/mm3 (0.00-0.031); Immature Granulocyte Percent A 0.2 % (0-0.5); Lymphocytes Absolute Auto 2.19 K/mm3 (0.9-3.2); Lymphocytes Percent Auto 33.5 % (18.3-44.2); Mean Corpuscular HGB Conc 32.2 g/dl (32-36); Mean Corpuscular Hemoglobin 30.6 pg (26-34); Mean Corpuscular Volume 95.1 fl (80-100); Mean Platelet Volume 9.9 fl (7.4-10.4); Monocytes Absolute Auto 0.8 K/mm3 (0.1-0.6); Monocytes Percent Auto 11.6 % (2.6-8.5); Neutrophils Absolute Auto 3.1 K/mm3 (1.3-6.7); Neutrophils Percent Auto 46.8 % (45.5-73.1); Platelet Count Result 235 k/mm3 (150-375); Red Blood Count 4.05 M/mm3 (4.6-6.20); Red Cell Distribution Width 13.5 % (11.5-14.5); White Blood Count 6.5 K/mm3 (4.5-10.0)
[2021-10-19 06:23] LABS: Anion Gap 9 mmol/L (8-16); Blood Urea Nitrogen 15 mg/dL (9-20); Calcium 8.2 mg/dL (8.4-10.2); Carbon Dioxide 25 mmol/L (22-30); Chloride 104 mmol/L (98-107); Estimated CRCL calculation 94 ml/min; Estimated Glomerular Filt Rate > 60; Glucose 113 mg/dL (65-110); Sodium 138 mmol/L (137-145)
[2021-10-19] MEDS: polyethylene glycoL 3350 17 GM POWD.PACK PO (08:36)
[2021-10-19] MEDS: SENNA/DOCUSATE SODIUM TABLET 2 TAB PO (08:36)
[2021-10-19] MEDS: busPIRone HCL 5 MG TABLET 15 MG PO (08:37)
[2021-10-19] MEDS: FAMOTIDINE 20 MG TABLET PO (08:37)
[2021-10-19] MEDS: DESVENLAFAXINE SUCCINATE 50 MG TAB.ER.24H 100 MG PO (09:43)
[2021-10-19] MEDS: FENOFIBRATE 160 MG TABLET PO (09:44)
[2021-10-19] MEDS: LOSARTAN POTASSIUM 25 MG TABLET PO (09:44)
[2021-10-19] MEDS: TAMSULOSIN HCL 0.4 MG CAPSULE PO (09:44)
[2021-10-19 09:49] VITALS: O2SAT 94
[2021-10-19 10:03] VITALS: BP 108/72; PULSE 63; RESP 12; TEMP 36.9; O2SAT 97
[2021-10-19] MEDS: HYDROcodone/acetaminophen (*CRX) 7.5-325 MG TABLET 2 TAB PO ×2 (10:10→16:23)
[2021-10-19] MEDS: amLODIPine BESYLATE 5 MG TABLET 10 MG PO (10:10)
[2021-10-19 13:54] VITALS: BP 110/54; PULSE 73; RESP 14; TEMP 36.7; O2SAT 94
--- NOTE | 2021-10-19 16:42 | PM.PNORT ---
Progress Note: A&P Additional Plan POD 1 I AND D FOR TRAUMATIC WOUND DEHISCENCE OF RIGHT KNEE. HE WILL BE DC HOME TODAY AND F/U IN 1 WEEK FOR PROVENA EVAL AND POSSIBLE EXCHANGE. Subjective Subjective Date/Time Seen: 10/19/21 16:42 POD 1 DOOING WELL. PAIN WELL CONTROLLED. NO CALF PAIN Exam Extrem: Other: VSS AFEBRILE PROVENA DRESSING DRAINING SANGUINOUS FLUID WELL. THERE IS ONLY TRACE AMOUNT IN CANISTER. NV INTACT CALF SOFT NON TENDER Objective Data Vital Signs Vital Signs: Vital Signs - 24 hr 10/18/21 18:55 10/18/21 19:10 10/18/21 19:25 Temperature 36.3 C L Pulse Rate 63 65 65 Respiratory Rate 12 14 12 Blood Pressure 112/65 124/75 115/83 Pulse Oximetry 100 95 92 10/18/21 19:40 10/18/21 19:55 10/18/21 20:19 Temperature 35.8 C L Pulse Rate 69 72 66 Respiratory Rate 14 12 17 Blood Pressure 120/78 120/78 134/73 Pulse Oximetry 94 95 96 10/18/21 20:35 10/18/21 21:05 10/18/21 21:16 Temperature 35.8 C L 35.8 C L 35.7 C L Pulse Rate 65 65 65 Respiratory Rate 18 16 17 Blood Pressure 129/73 127/72 119/63 Pulse Oximetry 95 95 94 10/18/21 23:23 10/19/21 03:39 10/19/21 09:49 Temperature 35.6 C L 35.7 C L Pulse Rate 71 67 Respiratory Rate 17 16 Blood Pressure 119/66 103/48 L Pulse Oximetry 94 94 94 10/19/21 10:03 10/19/21 13:54 Temperature 36.9 C 36.7 C Pulse Rate 63 73 Respiratory Rate 12 14 Blood Pressure 108/72 110/54 L Pulse Oximetry 97 94 Intake/Output Intake/Output: Intake & Output 10/16/21 10/17/21 10/18/21 10/19/21 23:59 23:59 23:59 23:59 Intake Total 1040 1760 Output Total 600 1300 Balance 440 460 Meds/Results Medications: Active Medications Generic Name Dose Route Start Last Admin Trade Name Freq PRN Reason Stop Dose Admin Acetaminophen 650 mg 10/18/21 19:15 Acetaminophen 325 Mg Tablet PO Q6H PRN Pain Rated 1-3 Hydrocodone Bitart/Acetaminophen 2 tab 10/18/21 19:20 10/19/21 16:23 Hydrocodone/Acetaminophen (*Crx) 7.5-325 Mg Tablet PO 2 tab Q6H PRN Administration Pain Rated 7-10 Amlodipine Besylate 10 mg 10/19/21 09:00 10/19/21 10:10 Amlodipine Besylate 5 Mg Tablet PO 10 mg QAM HARMAN Administration Buspirone HCl 15 mg 10/18/21 21:00 10/19/21 08:37 Buspirone Hcl 5 Mg Tablet PO 15 mg Q12HR HARMAN Administration Cyclobenzaprine HCl 10 mg 10/18/21 19:24 10/18/21 22:29 Cyclobenzaprine Hcl 10 Mg Tablet PO 10 mg TID PRN Administration Muscle Spasm Desvenlafaxine Succinate 100 mg 10/19/21 09:00 10/19/21 09:43 Desvenlafaxine Succinate 50 Mg Tab.Er.24h PO 11/18/21 08:59 100 mg QAM HARMAN Administration Famotidine 20 mg 10/18/21 21:00 10/19/21 08:37 Famotidine 20 Mg Tablet PO 20 mg Q12HR HARMAN Administration Fenofibrate 160 mg 10/19/21 09:00 10/19/21 09:44 Fenofibrate 160 Mg Tablet PO 160 mg DAILY HARMAN Administration Lactated Ringer's 1,000 mls @ 30 mls/hr 10/18/21 16:55 10/19/21 14:12 Lr - Lactated Ringers Iv IV CONT Not Given .Q24H HARMAN Cefazolin Sodium 2 gm in 50 mls @ 100 mls/hr 10/19/21 02:00 10/19/21 10:40 Ancef 2 Gm/D5w 50 Ml IVPB 10/19/21 18:29 Infused Q8H HARMAN Infusion Vancomycin HCl 1,500 mg in 500 mls @ 333.333 mls/hr 10/19/21 07:00 10/19/21 06:00 Vancomycin 1,500 Mg/D5w 500 Ml IVPB 10/19/21 20:29 333.33 mls/hr Q12H HARMAN Administration Losartan Potassium 25 mg 10/19/21 09:00 10/19/21 09:44 Losartan Potassium 25 Mg Tablet PO 25 mg QAM HARMAN Administration Naloxone HCl 0.1 mg 10/18/21 19:15 Naloxone Hcl 0.4 Mg/Ml Vial IV PUSH Q2M PRN Opiate Reversal Ondansetron HCl 4 mg 10/18/21 19:15 Ondansetron Inj 4 Mg/2 Ml Vial IV PUSH Q4H PRN Nausea And Vomiting Polyethylene Glycol 17 gm 10/19/21 09:00 10/19/21 08:36 Polyethylene Glycol 3350 17 Gm Powd.Pack PO 17 gm QAM HARMAN Administration Selenium Sulfide 1 applic 10/18/21 19:24 Selenium Sulfide Shampoo 207 Ml TOPICAL PRN PRN
--- NOTE | 2021-10-19 16:51 | PM.DS ---
DS: Admitting Diagnosis Discharge Date 10/19/21 Admitting Diagnosis TRAUMATIC DEHISCENCE RIGHT KNEE WOUND DS: Discharge Diagnosis Discharge Diagnosis (1) Traumatic wound dehiscence: Code(s): T81.33XA - Disruption of traumatic injury wound repair, initial encounter Status: Acute DS: Summary Hospital Course Reason for hospitalization: TRAUMATIC DEHISCENCE RIGHT KNEE WOUND Hospital Course: PATIENT IS S/P 5 WEEKS FROM R TKA. HE FELL ON TO HIS RIGHT KNEE AND SUSTAINED A TRAUMATIC WOUND DEHISCENCE. HE WAS SEEN IN THE ED AND THEN IN MY OFFICE. I RECOMMENDED I AND D OF WOUND AND THEN CLOSURE. HE DID WELL AND WAS PLACED ON IV ANTIBIOTICS. HE WAS UP WITH PT AND HAD PAIN WELL CONTROLLED WITH PROBLEMS. HE WAS TAKING GOOD PO INTAKE WELL. HE HAD PASSED PT WITH NO PROBLEM. HE WILL BE DCd HOME AND WILL F/U IN 1 WEEK. Time spent discussing smoking cessation with patient: more than 10 minutes Status at Discharge Cognitive/behavioral status at discharge: STABLE Functional status at discharge: uses cane/walker Time Spent with Patient Time attestation: Total time spent providing and/or coordinating discharge services: Time spent: Less than 30 minutes DS: Data Data Completed and Pending Labs on day of discharge: Labs from last 24 hours 10/19/21 10/19/21 05:35 05:35 WBC 6.5 RBC 4.05 L Hgb 12.4 L Hct 38.5 L MCV 95.1 MCH 30.6 MCHC 32.2 RDW 13.5 Plt Count 235 MPV 9.9 Immature Gran % (Auto) 0.2 Neut % (Auto) 46.8 Lymph % (Auto) 33.5 [place] % (Auto) 11.6 H Eos % (Auto) 6.4 H Baso % (Auto) 1.5 H Lymph # (Auto) 2.19 [place] # (Auto) 0.8 H Eos # (Auto) 0.4 H Baso # (Auto) 0.1 Abs Immat Gran (auto) 0.01 Absolute Neuts (auto) 3.1 Absolute Nucleated RBC 0.0 Nucleated RBC % 0.0 Sodium 138 Potassium 3.0 L Chloride 104 Carbon Dioxide 25 Anion Gap 9 BUN 15 Creatinine 0.80 Estim Creat Clear Calc 94 Estimated GFR > 60 Glucose 113 H Calcium 8.2 L Discharge Plan Discharge Attending physician on discharge: Slick Collado Discharging Clinician: Slick Collado Patient Disposition: Home, Self-Care Activity: may shower and follow weight bearing status Diet: as tolerated Wound Care Instructions: keep dressing dry Discharge Instructions: SLICK COLLADO M.D. [facility] [address] [place] [address] POST OPERATIVE DISCHARGE INSTRUCTIONS FOLLOWING TOTAL KNEE REPLACEMENT SURGERY ? Your dressing will be changed prior to your discharge. You will be sent home with one additional dressing to be changed on post op day 7 by the home health RN. Your antony will be removed on the 14th day after surgery and steri-strips will be placed. Please practice good hand hygiene and do not touch your incision in order to prevent infection. ? You may shower with your dressing but do not submerge in a bath tub. ? Do not drive or operate machinery until you are released by Dr. Collado. ? Do not walk without a walker for any reason until you are released by Dr. Collado. ? Continue to use your ice machine. Please use a towel or pillow case to protect your skin before applying your ice machine. ? Do NOT place a pillow under your knee. You may use a pillow from the calf down if needed. This will prevent a flexion contracture postoperatively. ? You may begin use of your CPM machine at home if you have been given one pre-operatively. DO NOT USE WHILE YOU ARE SLEEPING. ? Your first post op appointment was sent to you via mail preoperatively. If you have any questions or are unable to make your appointment, please contact our office for scheduling questions. ? Your medications have been sent to your pharmacy. You have been sent home with pain medication. We have also sent you with a stool softener as narcotics can cause constipation. Please keep this in mind during your postoperativ
== END 2021-10-19 17:12 | disposition home or self-care (01) ==
LOC: ANHSURGERY 16:08 → ANH2MED 19:26
PROVIDERS: PCP Family Medicine; Visit Provider Orthopaedic Surgery
PROC: (CPT 27447; principal; 2021-10-18 18:00)
DX: T81.31XA Disruption of external operation (surgical) wound, not elsewhere classified, initial encounter (principal); W01.0XXA Fall on same level from slipping, tripping and stumbling without subsequent striking against object, initial encounter; Z96.651 Presence of right artificial knee joint; G62.9 Polyneuropathy, unspecified; I10 Essential (primary) hypertension; E78.5 Hyperlipidemia, unspecified; Z79.891 Long term (current) use of opiate analgesic; Z87.891 Personal history of nicotine dependence; E66.9 Obesity, unspecified; Z68.31 Body mass index [BMI] 31.0-31.9, adult
CPT/HCPCS: 13121; 36415; 80048; 85025; 97161; 97165; A9270; J0690; J1885; J2250; J2270; J2405; J2704; J3010; J3370; J7120; L1830

== ENCOUNTER 2021-11-08 09:00 | Outpatient (RCR) | payer MEDICARE, SELFPAY ==
[2021-10-31 09:18] VITALS: BMI 31.4
--- NOTE | 2021-10-31 09:21 | PM.PNORT ---
Progress Note: A&P Assessment and Plan (1) Traumatic wound dehiscence: Qualifiers: Encounter type: subsequent encounter Qualified Code(s): T81.33XD - Disruption of traumatic injury wound repair, subsequent encounter Code(s): T81.33XA - Disruption of traumatic injury wound repair, initial encounter Status: Acute Assessment and Plan: Wound packed initiated today. Patient will follow up on Sunday for re-evaluation and wound VAC dressing change. Extensive instructions regarding wound VAC use reviewed with the patient today. Patient understands when he should contact the office for concerns of wound VAC failure. He should continue his oral antibiotics. Reviewed signs and symptoms of joint infection to report to the office immediately. Continue cane for balance and ambulation. Follow up on Sunday in the [facility] wound [facility]. (2) S/P total knee arthroplasty: Qualifiers: Laterality: right Qualified Code(s): Z96.651 - Presence of right artificial knee joint Code(s): Z96.659 - Presence of unspecified artificial knee joint Status: Acute Subjective Subjective Date/Time Seen: 10/31/21 09:21 Interval history: 66-year-old male presents to the [facility] wound clinic today for evaluation of right knee and initiation of wound VAC. patient underwent right total knee arthroplasty in September by Dr. Collado. He had a fall on October 17 which resulted in a wound dehiscence. He was taken back to the operating room by Dr. Collado on October 18. He has since had difficulty with controlling drainage of the prepatellar bursa space. He has failed to improve with wound VAC dressings. He would benefit from a traditional wound VAC at this time. He continues to deny fever, chills, night sweats, nausea, vomiting or diarrhea. He has good active and passive range of motion of the knee without significant pain. He had a dressing placed on last Sunday which has remained intact. Moderate amount of serosanguineous drainage noted on dressing. Review of Systems Review of Systems: All systems reviewed & are unremarkable except as noted in HPI and below Exam Const: General: comfortable and no acute distress Resp: Effort & Inspection: normal respiratory effort Cardio: Rate: regular rate Rhythm: regular rhythm GI: Inspection: non-distended GI Palp: Yes Soft to palpation and No Tenderness to palpation present (GI) Skin: Other: Wound on the anterior aspect of the right knee with a 1.0 cm depth at the more distal aspect of the knee. Moderate serosanguineous drainage. Incision otherwise intact. Surrounding tissue with mild redness. No warmth. Remaining sutures removed today. Neuro: General: gait normal Cognition (Neuro): normal cognition Extrem: Right lower extremity: knee (see skin assessment ) Details: tenderness Location: of the patella Details: inferiorly and abnormal ROM (still with limitations given recent TKA but no significant pain with AROM/PROM ); no lacerations, no ecchymosis, no crepitus, no deformity and no unusual warmth
--- NOTE | 2021-11-04 08:59 | PM.PNORT ---
Progress Note: A&P Assessment and Plan (1) Traumatic wound dehiscence: Qualifiers: Encounter type: subsequent encounter Qualified Code(s): T81.33XD - Disruption of traumatic injury wound repair, subsequent encounter Code(s): T81.33XA - Disruption of traumatic injury wound repair, initial encounter Status: Acute Assessment and Plan: 66-year-old male follows up in the [facility] today for wound VAC dressing change. He reports that the wound VAC is working well for the last 1 week. He has developed increased swelling of the right knee. He has been on cephalexin per Dr. Collado since his traumatic wound dehiscence after a fall from his truck. He reports mild chills overnight. He has not taken his temperature. Temperature taking her today is 97.7. Moderate knee joint effusion noted. Significant increase from exam on Sunday. Wound VAC removed. Patient still with a wound at the distal aspect of the incision which is now wider than previous. Slough like tissue at the incision. Dr. Collado called to the wound clinic for further evaluation. Dr. Collado present for the entirety of the appt, evaluation, discussion with family and decision for care. Sterile aspiration performed of the right knee due to concern for joint infection. Culture sent for STAT Gram stain and aerobic and anaerobic culture. CBC, CRP and ESR drawn in the wound clinic by [facility]. Discussed suspected joint infection with the patient. Dr. Collado discussed need for return to the OR for I&D and possible explant of the TKA components and IV antibiotics pending culture results. Discussed referral to tertiary care hospital for closer infectious disease monitoring. We will plan for follow-up with Dr. Collado on Sunday and possible return to the operating room with the care is not established at [facility] in the interim. Wound VAC reapplied per Dr. Collado today. Reviewed extensively signs and symptoms of worsening infection to report to the emergency room immediately. Patient and significant other verbalized understanding agree with plan of care. (2) S/P total knee arthroplasty: Qualifiers: Laterality: right Qualified Code(s): Z96.651 - Presence of right artificial knee joint Code(s): Z96.659 - Presence of unspecified artificial knee joint Status: Acute Assessment and Plan: Patient is 7 weeks, 2 days status post right total knee arthroplasty. He was initially progressing well postoperatively. He had an unfortunate fall on 10/17 which resulted in a postoperative wound dehiscence. He was initially evaluated in the emergency room and antony were applied by the ER provider. He was then taken back to the OR on 10/[address] Collado for a clean out and closure. See operative notes. Difficulty with prepatellar drainage since that time. (3) Knee joint effusion: Qualifiers: Laterality: right Qualified Code(s): M25.461 - Effusion, right knee Code(s): M25.469 - Effusion, unspecified knee Status: Acute Assessment and Plan: Moderate right knee joint effusion noted today. Pain with active and passive range of motion. Dr. Collado performed an aspiration under sterile conditions of the right knee to be sent for stat Gram stain and aerobic and anaerobic culture. 40 mL of fluid aspirated from the right knee. Subjective Subjective Date/Time Seen: 11/04/21 08:59 Interval history: The patient presents today [facility] today 7 weeks status post right total knee arthroplasty and 2 weeks, 4 days status post return to the operating room for postoperative wound dehiscence after a fall. Patient had a wound VAC initiated on Sunday of this week for a pre patella bursa draining wound. Patient reports that the wound VAC has been functioning well. He also reports a new onset of chills last night and increased swelling in the right knee. He also reports pain with ROM of the r
[2021-11-04 09:48] LABS: Basophils Absolute Auto 0.1 K/mm3 (0.0-0.1); Basophils Percent Auto 0.7 % (0.2-1.2); Eosinophils Absolute Auto 0.2 K/mm3 (0-0.3); Hematocrit 39.6 % (42.0-52.0); Hemoglobin 13.3 g/dL (14.0-18.0); Immature Granulocyte Absolute 0.04 K/mm3 (0.00-0.031); Immature Granulocyte Percent A 0.4 % (0-0.5); Lymphocytes Absolute Auto 1.59 K/mm3 (0.9-3.2); Lymphocytes Percent Auto 16.7 % (18.3-44.2); Mean Corpuscular HGB Conc 33.6 g/dl (32-36); Mean Corpuscular Hemoglobin 30.9 pg (26-34); Mean Corpuscular Volume 91.9 fl (80-100); Mean Platelet Volume 9.3 fl (7.4-10.4); Monocytes Absolute Auto 1.2 K/mm3 (0.1-0.6); Monocytes Percent Auto 12.3 % (2.6-8.5); Neutrophils Absolute Auto 6.5 K/mm3 (1.3-6.7); Neutrophils Percent Auto 67.9 % (45.5-73.1); Platelet Count Result 416 k/mm3 (150-375); Red Blood Count 4.31 M/mm3 (4.6-6.20); Red Cell Distribution Width 13.2 % (11.5-14.5); White Blood Count 9.5 K/mm3 (4.5-10.0)
[2021-11-04 10:12] LABS: Anion Gap 8 mmol/L (8-16); Blood Urea Nitrogen 16 mg/dL (9-20); CRP 20.8 mg/dL (<1.0); Calcium 9.1 mg/dL (8.4-10.2); Carbon Dioxide 25 mmol/L (22-30); Chloride 106 mmol/L (98-107); Estimated CRCL calculation 95 ml/min; Estimated Glomerular Filt Rate > 60; Glucose 122 mg/dL (65-110); Potassium 3.6 mmol/L (3.4-5.0); Sodium 139 mmol/L (137-145)
[2021-11-04 10:26] LABS: Erythrocyte Sedimentation Rate 36 mm/hr (0-20)
--- NOTE | 2021-11-08 09:42 | PM.PNORT ---
Progress Note: A&P Assessment and Plan (1) Traumatic wound dehiscence: Qualifiers: Encounter type: subsequent encounter Qualified Code(s): T81.33XD - Disruption of traumatic injury wound repair, subsequent encounter Code(s): T81.33XA - Disruption of traumatic injury wound repair, initial encounter Status: Acute Assessment and Plan: 66-year-old male follows up in the [facility] today for wound VAC dressing change. Stat Gram stain of the right knee status post aspiration by Dr. Collado last week revealed no organisms. Preliminaries anaerobic and aerobic cultures reveal Pseudomonas. Final cultures pending. Patient has remained afebrile. White count was normal however elevated ESR and CRP on Sunday of last week. At this time, we have referred the patient to [facility] for further surgical and infectious disease consult. He has an appointment for evaluation tomorrow. Patient will likely need return to the operating room for repeat I&D and possible explant of total knee arthroplasty with antibiotic spacer and IV antibiotics. Patient aware. We will remove the wound VAC at this time and plan for daily dressing changes until evaluation by [facility]. Pending their decision, wound VAC may be utilized postoperatively. Patient to perform dressing change 2 times daily for the next day. Discussed importance of proper hand hygiene and use of gloves for dressing change. Patient verbalized understanding. Supplies dispensed. Patient to contact our office pending discussion with the [facility] physician for further update on plan of care. We will determine wound VAC use at that time. (2) S/P total knee arthroplasty: Qualifiers: Laterality: right Qualified Code(s): Z96.651 - Presence of right artificial knee joint Code(s): Z96.659 - Presence of unspecified artificial knee joint Status: Acute Assessment and Plan: Patient is 8 weeks status post right total knee arthroplasty. He was initially progressing well postoperatively. He had an unfortunate fall on 10/17 which resulted in a postoperative wound dehiscence. He was initially evaluated in the emergency room and antony were applied by the ER provider. He was then taken back to the OR on 10/[address] Collado for a clean out and closure. See operative notes. Difficulty with prepatellar drainage since that time and now knee joint infection. (3) Knee joint effusion: Qualifiers: Laterality: right Qualified Code(s): M25.461 - Effusion, right knee Code(s): M25.469 - Effusion, unspecified knee Status: Acute Assessment and Plan: Preliminary culture results reveal Pseudomonas. We will fax result to [facility] today. Subjective Subjective Date/Time Seen: 11/08/21 09:42 Interval history: The patient presents today [facility] today 8 weeks status post right total knee arthroplasty and 3 weeks status post return to the operating room for postoperative wound dehiscence after a fall. Patient was seen last Sunday in the wound clinic for wound VAC dressing change. He was noted to have a larger effusion of the right knee joint at that time. Aspiration was performed sterilely in the wound clinic by Dr. Collado. Labs were also drawn. Patient had his wound VAC reapplied and has had his wound VAC in place since that time. Review of Systems Constitutional: Constitutional: Reports chills and Denies fever(s) Cardiovascular: Cardiovascular: Reports no additional cardiovascular complaints Respiratory: Respiratory: Denies chest congestion, Denies cough, Denies dyspnea and Denies wheezing Gastrointestinal: Gastrointestinal: Reports no additional gastrointestinal complaints Genitourinary: Genitourinary: Reports no additional male genitourinary complaints Musculoskeletal: Musculoskeletal: Reports as per HPI, Reports abnormal gait, Reports arthralgias, Reports join
== END 2021-11-15 12:17 | disposition home or self-care (01) ==
LOC: ANHWOC 09:00
PROVIDERS: PCP Family Medicine; Visit Provider Nurse Practitioner Family
DX: T81.33XD Disruption of traumatic injury wound repair, subsequent encounter (principal); Z96.651 Presence of right artificial knee joint
CPT/HCPCS: 20610; 36415; 80048; 85025; 85652; 86140; 87070; 87075; 87077; 87186; 87205; 97605; 99213; A9270; G0463

== ENCOUNTER 2022-09-15 10:30 | Emergency (ER) | payer OTHER, SELFPAY ==
[2022-09-15] VITALS (41 sets, daily range): BP systolic 87–139; BP diastolic 53–84; PULSE 68–118; RESP 10–30; TEMP 37–37.1; O2SAT 92–100
--- NOTE | ~2022-09-15 | XR_ITS ---
EXAMINATION: XR chest 2V DATE: 09/15/2022 11:20 INDICATION: Nonspecific chest pain with weakness TECHNIQUE: frontal and lateral views of the chest were obtained. COMPARISON: Chest radiograph dated 08/02/17 FINDINGS: The lungs remain clear with no focal airspace opacities, pulmonary edema, pleural effusion or pneumot horax. The cardiomediastinal silhouette is normal. Moderate thoracic spondylosis. Chronic mild anteri or wedging of a couple lower thoracic vertebral bodies. Suture anchors at the right humeral head cons istent with prior rotator cuff repair. Partially visualized vertical fabby and screw fixation for poste rior spinal fusion at the lower cervical and upper thoracic spine. IMPRESSION: 1. No acute cardiopulmonary disease. Reviewed, dictated and finalized at location A.
--- NOTE | 2022-09-15 10:34 | ECG_ITS ---
Measurements Intervals [place] Rate: 93 P: 56 MS: 175 QRS: 45 QRSD: 120 T: 38 QT: 396 QTc: 494 Interpretive Statements SINUS RHYTHM MODERATE INTRAVENTRICULAR CONDUCTION DELAY NONSPECIFIC ST ABNORMALITY ABNORMAL ECG COMPARED TO ECG 08/29/2021 09:30:49 NO SIGNIFICANT CHANGES Electronically Signed On 09-16-2022 14:52:06 CDT by Mathew Baumann M.D.
[2022-09-15 10:54] LABS: Basophils Absolute Auto 0.1 K/mm3 (0.0-0.1); Basophils Percent Auto 0.7 % (0.2-1.2); Eosinophils Percent Auto 0.1 % (0-4.4); Hematocrit 24.8 % (42.0-52.0); Hemoglobin 8.2 g/dL (14.0-18.0); Immature Granulocyte Absolute 0.05 K/mm3 (0.00-0.031); Immature Granulocyte Percent A 0.7 % (0-0.5); Lymphocytes Absolute Auto 1.43 K/mm3 (0.9-3.2); Lymphocytes Percent Auto 18.8 % (18.3-44.2); Mean Corpuscular HGB Conc 33.1 g/dl (32-36); Mean Corpuscular Hemoglobin 28.6 pg (26-34); Mean Corpuscular Volume 86.4 fl (80-100); Monocytes Absolute Auto 0.6 K/mm3 (0.1-0.6); Monocytes Percent Auto 7.5 % (2.6-8.5); Neutrophils Absolute Auto 5.5 K/mm3 (1.3-6.7); Neutrophils Percent Auto 72.2 % (45.5-73.1); Platelet Count Result 304 k/mm3 (150-375); Red Blood Count 2.87 M/mm3 (4.6-6.20); Red Cell Distribution Width 18.1 % (11.5-14.5); White Blood Count 7.6 K/mm3 (4.5-10.0)
[2022-09-15 11:06] LABS: INR 1.5; Prothrombin Time 17.3 Seconds (11.1-14.7)
[2022-09-15 11:07] LABS: Albumin Level 3.8 g/dL (3.5-5.1); Alkaline Phosphatase 48 U/L (38-126); Aspartate Amino Transferase 27 U/L (17-59); Blood Urea Nitrogen 44 mg/dL (9-20); Calcium 8.3 mg/dL (8.4-10.2); Carbon Dioxide 21 mmol/L (22-30); Chloride 96 mmol/L (98-107); Lipase 39 U/L (23-300)
[2022-09-15 11:08] LABS: Anion Gap 15 mmol/L (8-16); Bilirubin,Total 0.5 mg/dL (0.2-1.3); Estimated CRCL calculation 58 ml/min; Estimated Glomerular Filt Rate 60; Glucose 121 mg/dL (65-110); Partial Thromboplastin Time 23.4 SECONDS (22.3-36.8); Sodium 132 mmol/L (137-145)
[2022-09-15 11:09] LABS: Potassium 2.8 mmol/L (3.4-5.0)
--- NOTE | 2022-09-15 11:13 | PC.NURSE ---
Patient report received from BELA Allen. All questions answered and care of patient assumed.
[2022-09-15 11:14] LABS: Alanine Aminotransferase 34 U/L (6-50)
[2022-09-15 11:16] LABS: Troponin I < 0.012 ng/mL (0.000-0.034)
[2022-09-15] MEDS: SODIUM CHLORIDE 0.9% IV 1,000 ML 999 ML IV CONT ×2 (11:23→13:49)
[2022-09-15] MEDS: POTASSIUM CHLORIDE 20 MEQ PACKET (FOR LIQUID) 40 MEQ PO (11:23)
--- NOTE | 2022-09-15 11:26 | ED.GENADULT ---
HPI - General Adult General Chief complaint: Chest Pain Stated complaint: Chest pain, shortness of breath Time Seen by Provider: 09/15/22 11:09 History of Present Illness HPI narrative: 67-year-old male presented the emergency department for evaluation of intermittent chest pain, dizziness and lightheadedness, vomiting coffee-ground emesis and having dark tarry stool for the last 24 hours. Patient states he has had intermittent chest pain over the course of the last week. Patient states that he began having the coffee-ground emesis and lower GI bleeding just last night. Patient is not on any blood thinners and has no prior history of GI bleed. Patient family were updated on the potential need for transfer due to the GI bleed since we have no GI coverage. Family states they prefer to go to [facility]. Patient did have knee surgery at [facility]. Related Data Home Medications Medication Instructions Recorded Confirmed tacrolimus 0.1 % topical ointment 1 applic topical BID PRN Skin 08/29/21 08/29/22 Irritation celecoxib 200 mg capsule 200 mg PO DAILY 10/18/21 08/29/22 meloxicam 7.5 mg tablet 7.5 mg PO DAILY 04/05/22 08/29/22 Allergies Allergy/AdvReac Type Severity Reaction Status Date / Time No Known Allergies Allergy Verified 09/15/22 10:51 Review of Systems Review of Systems: All systems reviewed & are unremarkable except as noted in HPI and below [facility] Past Medical History Medical History (Updated 09/15/22 @ 13:44 by Umberto Mancuso MD) Cervical spinal stenosis Chronic narcotic use Degenerative joint disease of knee HLD (hyperlipidemia) HTN (hypertension) Injury of right knee Knee joint effusion Obesity Paroxysmal A-fib s/p surgery Right knee DJD Right knee pain Tobacco dependence Surgical History Surgical History History of laminectomy History of tonsillectomy S/P rotator cuff repair bilateral S/P total knee arthroplasty Family History Family History Father Cerebrovascular accident Sibling Malignant neoplasm of prostate Mother Family history of lung cancer Social History Social History Social History: Smoking packs per day: 0.5 Smoking cigarettes per day: 10.0 Years smoked: 15 Smoking pack-years: 7.50 Smoking status: Former smoker Tobacco type: cigarettes Second hand tobacco smoke exposure: Yes Alcohol intake: current Drinks per week: 4 Substance use: never Substance use type: does not use Living arrangements: with family Additional living arrangements comments: Occupation/Education: occupation Gender identity (if verbalized by the patient): Male Sexual Orientation (if Verbalized by the Patient): Straight or Heterosexual Spiritual care concerns: No Exam Narrative: APPEARANCE: Well appearing, no pain, no distress, well-nourished. HEAD: normocephalic, atraumatic. EYES: PERRLA/EOMI, conjunctivae clear. NOSE: Normal no drainage EARS:TMS clear with good light reflex. THROAT: Pharynx clear, no exudate. NECK: Supple. No adenopathy, no masses. RESPIRATORY: Airway patent, respirations nonlabored. Clear to auscultation bilaterally, no rales, rhonchi, wheezing. CARDIOVASCULAR: Regular rate and rhythm without murmurs rubs or gallops. ABDOMINAL: Soft, nontender, nondistended, normal bowel sounds Rectal exam: Melena stool MUSCULOSKELETAL: Moves all extremities. Strength/ROM intact, No edema, No calf tenderness. NEURO: Alert. Cranial nerves II through XII intact. SKIN: Warm, dry. Normal Color Course Course Emergency Course: 67-year-old male presenting to the emergency department for evaluation of chest pain, hematemesis and melena stool. Patient was started on IV fluids due to hypotension. Patient has a potassium of 2.8 and this was replaced orally. Patient was ordered a type and screen.
[2022-09-15] MEDS: KCL 20 MEQ/SW 100 ML 100 ML 50 MEQ IVPB (11:41)
[2022-09-15 11:44] LABS: Magnesium 2.1 mg/dL (1.6-2.3)
[2022-09-15] MEDS: PANTOPRAZOLE SODIUM IV 40 MG VIAL IV PUSH (11:54)
[2022-09-15] MEDS: ONDANSETRON INJ 4 MG/2 ML VIAL IV PUSH (11:59)
[2022-09-15] MEDS: PANTOPRAZOLE SODIUM IV 80 MG in SODIUM CHLORIDE 0.9% IV 500 ML 50 MG IV CONT (12:21)
[2022-09-15 14:00] LABS: Troponin I < 0.012 ng/mL (0.000-0.034)
--- NOTE | 2022-09-15 14:25 | PC.NURSE ---
Received communication from [facility] transfer line that patient was accepted to [facility] under Dr. Marcial Navarro. All requested information provided. Transfer Center to call back with room assignment once available. Anticipate bed to be available today.
[2022-09-15 15:59] LABS: Hematocrit 22.8 % (42.0-52.0); Hemoglobin 7.4 g/dL (14.0-18.0)
--- NOTE | 2022-09-15 17:36 | PC.NURSE ---
Bed assigned at [facility] [phone] Dr Navarro Accepting
--- NOTE | 2022-09-15 17:43 | PC.NURSE ---
[facility] accepted ALS transfer to [facility] Rm [facility]-A ETA 19:30 Trip # [id number]
[2022-09-15] MEDS: SODIUM CHLORIDE 0.9% IV 250 ML 30 ML IV CONT (18:10)
[2022-09-15] MEDS: TUBING, BLOOD PLUM PUMP TUBING 1 EACH XX (18:10)
== END 2022-09-15 19:05 | disposition short-term general hospital (02) ==
PROVIDERS: Emergency Provider Emergency Medicine; PCP Family Medicine
DX: K92.2 Gastrointestinal hemorrhage, unspecified (principal); E87.6 Hypokalemia; I95.9 Hypotension, unspecified; I48.0 Paroxysmal atrial fibrillation; E78.5 Hyperlipidemia, unspecified; I10 Essential (primary) hypertension; M17.11 Unilateral primary osteoarthritis, right knee; Z96.659 Presence of unspecified artificial knee joint; Z87.891 Personal history of nicotine dependence; I45.9 Conduction disorder, unspecified; R94.31 Abnormal electrocardiogram [ECG] [EKG]
CPT/HCPCS: 36415; 36430; 71046; 80053; 83690; 83735; 84484; 85014; 85018; 85025; 85610; 85730; 86850; 86900; 86901; 86923; 93005; 96361; 96365; 96366; 96375; 99285; A9270; C9113; J2405; J3480; J7030; J7040; J7050; P9016

== ENCOUNTER 2022-12-06 12:56 | Outpatient (CLI) | payer OTHER, SELFPAY ==
[2022-12-06 13:28] LABS: Hematocrit 39.6 % (42.0-52.0); Hemoglobin 12.3 g/dL (14.0-18.0); Mean Corpuscular HGB Conc 31.1 g/dl (32-36); Mean Corpuscular Hemoglobin 24.6 pg (26-34); Mean Platelet Volume 9.6 fl (7.4-10.4); Platelet Count Result 306 k/mm3 (150-375); Red Blood Count 5.01 M/mm3 (4.6-6.20); Red Cell Distribution Width 20.5 % (11.5-14.5); White Blood Count 4.9 K/mm3 (4.5-10.0)
== END 2022-12-06 12:57 | disposition home or self-care (01) ==
PROVIDERS: PCP Family Medicine; Visit Provider Family Medicine
DX: D64.9 Anemia, unspecified (principal)
CPT/HCPCS: 36415; 85027

== ENCOUNTER 2023-01-26 13:05 | Outpatient (CLI) | payer OTHER, SELFPAY ==
[2023-01-26 08:13] LABS: Hematocrit 41.9 % (42.0-52.0); Hemoglobin 13.4 g/dL (14.0-18.0); Mean Corpuscular Hemoglobin 24.7 pg (26-34); Mean Corpuscular Volume 77.2 fl (80-100); Mean Platelet Volume 9.5 fl (7.4-10.4); Platelet Count Result 343 k/mm3 (150-375); Red Blood Count 5.43 M/mm3 (4.6-6.20); Red Cell Distribution Width 20.1 % (11.5-14.5); White Blood Count 5.4 K/mm3 (4.5-10.0)
[2023-01-26 08:15] LABS: Appearance Urine Clear (Clear); Bilirubin Urine Negative (Negative); Blood Urine Negative (Negative); Color Urine Yellow (Yellow); Glucose Urine UA Negative (Negative); Ketones Urine Negative (Negative); Leukocyte Esterase Ur Negative LEU/UL (NEGATIVE); Nitrate Urine Negative (Negative); Protein Urine Negative (Negative); Specific Grav Ur 1.017 (1.001-1.035); pH Urine 6.5 (5.0-9.0)
[2023-01-26 08:24] LABS: Alanine Aminotransferase 21 U/L (6-50); Albumin Level 4.5 g/dL (3.5-5.1); Alkaline Phosphatase 67 U/L (38-126); Anion Gap 10 mmol/L (8-16); Aspartate Amino Transferase 32 U/L (17-59); Bilirubin,Total 0.6 mg/dL (0.2-1.3); Blood Urea Nitrogen 21 mg/dL (9-20); Calcium 9.2 mg/dL (8.4-10.2); Carbon Dioxide 23 mmol/L (22-30); Chloride 103 mmol/L (98-107); Cholesterol 174 mg/dL (0-200); Estimated Glomerular Filt Rate > 60; Glucose 129 mg/dL (65-110); HDL Direct 48 mg/dL; Potassium 3.4 mmol/L (3.4-5.0); Sodium 136 mmol/L (137-145); Triglycerides 144 mg/dL (<150)
[2023-01-26 08:35] LABS: LDL Cholesterol Direct 96 mg/dL
[2023-01-26 08:36] LABS: Add Urine Microscopic? NO
[2023-01-26 08:50] LABS: Hemoglobin A1C 5.8 % (<5.7)
[2023-01-26 13:51] LABS: Prostate Specific Antigen 0.2 ng/mL (< OR = 4.0)
== END 2023-01-26 13:06 | disposition home or self-care (01) ==
PROVIDERS: Physician Assistant; PCP Family Medicine; Visit Provider Family Medicine
DX: E78.5 Hyperlipidemia, unspecified (principal); I10 Essential (primary) hypertension; R53.83 Other fatigue; R73.01 Impaired fasting glucose; Z12.5 Encounter for screening for malignant neoplasm of prostate
CPT/HCPCS: 36415; 80053; 80061; 81003; 83036; 84153; 84443; 85027; G0103

== ENCOUNTER 2023-10-01 14:07 | Outpatient (CLI) | payer OTHER, SELFPAY ==
[2023-10-01 14:34] LABS: Basophils Absolute Auto 0.1 K/mm3 (0.0-0.1); Basophils Percent Auto 1.6 % (0.2-1.2); Eosinophils Absolute Auto 0.3 K/mm3 (0-0.3); Eosinophils Percent Auto 4.2 % (0-4.4); Hematocrit 41.5 % (42.0-52.0); Hemoglobin 13.8 g/dL (14.0-18.0); Immature Granulocyte Absolute 0.02 K/mm3 (0.00-0.031); Immature Granulocyte Percent A 0.3 % (0-0.5); Lymphocytes Absolute Auto 1.85 K/mm3 (0.9-3.2); Mean Corpuscular HGB Conc 33.3 g/dl (32-36); Mean Corpuscular Hemoglobin 29.1 pg (26-34); Mean Corpuscular Volume 87.4 fl (80-100); Mean Platelet Volume 9.6 fl (7.4-10.4); Monocytes Absolute Auto 0.6 K/mm3 (0.1-0.6); Monocytes Percent Auto 9.7 % (2.6-8.5); Neutrophils Absolute Auto 3.5 K/mm3 (1.3-6.7); Neutrophils Percent Auto 55.2 % (45.5-73.1); Platelet Count Result 340 k/mm3 (150-375); Red Blood Count 4.75 M/mm3 (4.6-6.20); Red Cell Distribution Width 16.1 % (11.5-14.5); White Blood Count 6.4 K/mm3 (4.5-10.0)
[2023-10-01 14:46] LABS: Alanine Aminotransferase 22 U/L (6-50); Albumin Level 4.7 g/dL (3.5-5.1); Alkaline Phosphatase 77 U/L (38-126); Anion Gap 8 mmol/L (4-12); Aspartate Amino Transferase 28 U/L (17-59); Bilirubin,Total 0.7 mg/dL (0.2-1.3); Blood Urea Nitrogen 14 mg/dL (9-20); Calcium 9.8 mg/dL (8.4-10.2); Carbon Dioxide 23 mmol/L (22-30); Chloride 111 mmol/L (98-107); Estimated Glomerular Filt Rate > 60; Glucose 110 mg/dL (65-110); Potassium 3.9 mmol/L (3.4-5.0); Sodium 142 mmol/L (137-145)
[2023-10-01 15:58] LABS: Folic Acid 5.9 ng/mL (2.76->20)
[2023-10-01 17:33] LABS: Vitamin D 25 Hydroxy 27.1 ng/mL
== END 2023-10-01 14:08 | disposition home or self-care (01) ==
LOC: ANHLAB 14:14
PROVIDERS: PCP Family Medicine; Visit Provider Family Medicine
DX: D64.9 Anemia, unspecified (principal); I10 Essential (primary) hypertension; K26.9 Duodenal ulcer, unspecified as acute or chronic, without hemorrhage or perforation; R53.83 Other fatigue; R73.01 Impaired fasting glucose; R20.0 Anesthesia of skin; R20.2 Paresthesia of skin
CPT/HCPCS: 36415; 80053; 82306; 82607; 82746; 84443; 85025

== ENCOUNTER 2024-02-01 09:25 | Outpatient (CLI) | payer OTHER, SELFPAY ==
[2024-02-01 09:50] LABS: Add Urine Microscopic? NO; Appearance Urine Clear (Clear); Bilirubin Urine Negative (Negative); Blood Urine Negative (Negative); Color Urine Yellow (Yellow); Glucose Urine UA Negative (Negative); Ketones Urine Negative (Negative); Leukocyte Esterase Ur Negative LEU/UL (Negative); Nitrate Urine Negative (Negative); Protein Urine Negative (Negative); Urobilinogen Urine 0.2 mg/dL (<2.0); pH Urine 7.5 (5.0-9.0)
[2024-02-01 09:51] LABS: Basophils Absolute Auto 0.1 K/mm3 (0.0-0.1); Basophils Percent Auto 2.1 % (0.2-1.2); Eosinophils Absolute Auto 0.3 K/mm3 (0-0.3); Eosinophils Percent Auto 6.3 % (0-4.4); Hematocrit 40.1 % (42.0-52.0); Hemoglobin 13.3 g/dL (14.0-18.0); Lymphocytes Percent Auto 27.9 % (18.3-44.2); Mean Corpuscular HGB Conc 33.2 g/dl (32-36); Mean Corpuscular Hemoglobin 29.7 pg (26-34); Mean Corpuscular Volume 89.5 fl (80-100); Mean Platelet Volume 9.7 fl (7.4-10.4); Monocytes Absolute Auto 0.5 K/mm3 (0.1-0.6); Monocytes Percent Auto 11.4 % (2.6-8.5); Neutrophils Absolute Auto 2.3 K/mm3 (1.3-6.7); Neutrophils Percent Auto 52.3 % (45.5-73.1); Platelet Count Result 261 k/mm3 (150-375); Red Blood Count 4.48 M/mm3 (4.6-6.20); Red Cell Distribution Width 15.2 % (11.5-14.5); White Blood Count 4.3 K/mm3 (4.5-10.0)
[2024-02-01 10:05] LABS: Alanine Aminotransferase 21 U/L (6-50); Albumin Level 4.4 g/dL (3.5-5.1); Alkaline Phosphatase 67 U/L (38-126); Anion Gap 12 mmol/L (4-12); Aspartate Amino Transferase 29 U/L (17-59); Bilirubin,Total 0.4 mg/dL (0.2-1.3); Blood Urea Nitrogen 14 mg/dL (9-20); Calcium 9.3 mg/dL (8.4-10.2); Carbon Dioxide 25 mmol/L (22-30); Chloride 103 mmol/L (98-107); Cholesterol 158 mg/dL (0-200); Estimated Glomerular Filt Rate > 60; Glucose 113 mg/dL (65-110); HDL Direct 38 mg/dL; Sodium 140 mmol/L (137-145); Triglycerides 188 mg/dL (<150)
[2024-02-01 10:16] LABS: LDL Cholesterol Direct 98 mg/dL
[2024-02-01 10:36] LABS: Prostate Specific Antigen 0.1 ng/mL (< OR = 4.0)
[2024-02-06 19:28] LABS: Testosterone Free 14.8 pg/mL (35.0-155.0); Testosterone Total 204 ng/dL (250-1100)
== END 2024-02-01 09:26 | disposition home or self-care (01) ==
PROVIDERS: PCP Family Medicine; Visit Provider Physician Assistant
DX: R68.82 Decreased libido (principal); E78.5 Hyperlipidemia, unspecified; G89.29 Other chronic pain; I10 Essential (primary) hypertension; I48.0 Paroxysmal atrial fibrillation; R73.01 Impaired fasting glucose; N40.1 Benign prostatic hyperplasia with lower urinary tract symptoms; Z12.5 Encounter for screening for malignant neoplasm of prostate; R20.0 Anesthesia of skin; R20.2 Paresthesia of skin; M54.50 Low back pain, unspecified
CPT/HCPCS: 36415; 80053; 80061; 81003; 83036; 84153; 84402; 84403; 84443; 85025; G0103

== ENCOUNTER 2024-02-20 15:23 | Outpatient (CLI) | payer OTHER, SELFPAY ==
--- NOTE | ~2024-02-20 | CT_ITS ---
EXAMINATION: CT brain wo con DATE: 02/20/2024 16:01 INDICATION: Transient cerebral ischemic attack TECHNIQUE: Computed tomography (CT) of the head was performed without intravenous contrast. Sagittal and coronal reconstructions were performed. The mA was adjusted according to patient size. Iterative reconstruction technique was employed. The dose-length product was 681.00 mGy-cm. COMPARISON: head CT dated 08/02/2017 FINDINGS: No acute intracranial hemorrhage, acute infarction or abnormal extra axial fluid collection. There is mild scattered white matter hypoattenuation consistent with chronic small vessel ischemic disease. V entricles are normal and symmetric. No mass/mass effect. The orbits and mastoid air cells are normal. Mild mucosal thickening in the right sphenoid sinus. IMPRESSION: 1. Age-related changes in the brain. No acute intracranial process. Reviewed, dictated and finalized at location B.
--- NOTE | ~2024-02-20 | US_ITS ---
EXAMINATION: US carotid duplex BI DATE: 02/20/2024 15:59 INDICATION: Transient cerebral ischemic attack TECHNIQUE: Grayscale, color Doppler, and pulsed Doppler images of the cervical carotid arteries were obtained. The degree of vessel stenosis is placed in one of the following categories: normal, <50%, 5 0-69%, >=70% but less than near-occlusion, near-occlusion, or total occlusion. Note that percent sten osis relative to normal distal artery lumen diameter is indirectly measured from velocity measurement s as described by Masoud, et al. Radiology 2003; 229:340-346. COMPARISON: None. FINDINGS: RIGHT: The right common carotid artery (CCA) peak systolic velocity (PSV) is 82 cm/s. The right internal car otid artery (ICA) PSV is 97 cm/s. The right ICA end-diastolic velocity (EDV) is 25 cm/s. The right IC A/CCA PSV ratio is 1.2. Grayscale and color Doppler images yield an estimate of <50% diameter reducti on from plaque in the ICA. The external carotid artery (ECA) PSV is 93 cm/s. There is antegrade flow in the right vertebral artery. LEFT: The left CCA PSV is 75 cm/s. The left ICA PSV is 81 cm/s. The left ICA EDV is 20 cm/s. The left ICA/C CA PSV ratio is 1.1. Grayscale and color Doppler images yield an estimate of <50% diameter reduction from plaque in the ICA. The ECA PSV is 69 cm/s. There is antegrade flow in the left vertebral artery. IMPRESSION: 1. <50% stenosis in the right internal carotid artery. 2. <50% stenosis in the left internal carotid artery. Reviewed, dictated and finalized at location B.
== END 2024-02-20 15:24 | disposition home or self-care (01) ==
LOC: ANHIMG 15:24
PROVIDERS: PCP Family Medicine; Visit Provider Family Medicine
DX: I65.23 Occlusion and stenosis of bilateral carotid arteries (principal)
CPT/HCPCS: 70450; 93880

== ENCOUNTER 2024-08-14 10:32 | Outpatient (CLI) | payer OTHER, SELFPAY ==
--- OUTSIDE RECORDS SUMMARY | 2024-08-14 12:05 | XMS_ITS | Clinical Summary ---
Author Organization [facility] Address [address] [place] [address] Care Team Providers Care Honing Machine Operator Tool Name Role Phone Hung Garcia MD Primary Care Provider Henrry Hancock MD Unavailable Allergies No known active allergies Medications cyclobenzaprine (FLEXERIL) 10 mg tabletIndicatio ns:Muscle Spasm Take 1 tablet (10 mg total) by mouth 3 (three) times a day as needed for muscle spasms 1 Active busPIRone (BUSPAR) 15 mg tabletIndicatio ns:Generalized Anxiety Disorder Take 1 tablet (15 mg total) by mouth every morning Active fenofibrate (TRIGLIDE) 160 mg tabletIndicatio ns:hypercholest erolemia,hyperl ipidemia,blood sugar Take 1 tablet (160 mg total) by mouth every morning Active tamsulosin (FLOMAX) 0.4 mg extended release capsuleIndicati ons:benign prostatic hyperplasia with lower urinary tract sx Take 2 capsules (0.8 mg total) by mouth every morning 7 Active desvenlafaxine ER (PRISTIQ) 100 mg 24 hr tabletIndicatio ns:major depressive disorder Take 1 tablet (100 mg total) by mouth every morning 8 Active zolpidem (AMBIEN) 5 mg tabletIndicatio ns:Sleep-Onset Insomnia Take 1 tablet (5 mg total) by mouth nightly Active ciclopirox 1 % shampooIndicati ons:seborrheic dermatitis of scalp Apply 1 Dose topically 2 (two) times a week 0 Active ergocalciferol (VITAMIN D) 50,000 unit capsuleIndicati ons:Vitamin D deficiency Take 1 capsule (50,000 Units total) by mouth once a week TAKE 1 CAPSULE ONCE A WEEK FOR 12 WEEKS, THEN FOLLOW UP WITH YOUR PCP. 12 capsule 2 Active acetaminophen 500 mg capsuleIndicati ons:Pain Take 2 capsules (1,000 mg total) by mouth every 8 (eight) hours 90 tablet 2 Active sildenafiL (VIAGRA) 100 mg tablet Take 1 tablet (100 mg total) by mouth as needed for erectile dysfunction 2 Active oxyCODONE (ROXICODONE) 20 mg tablet Take 1 tablet (20 mg total) by mouth every 8 (eight) hours as needed for pain Active oxyCODONE-aceta minophen (PERCOCET) 10-325 mg per tabletIndicatio ns:Pain Take 1 tablet by mouth every 6 (six) hours as needed for pain (Severe pain) 20 tablet 3 Active omeprazole (PriLOSEC) 20 mg capsuleIndicati ons:GI Bleed Take 1 capsule (20 mg total) by mouth 2 (two) times a day 60 capsule 3 Active ferrous sulfate ER 324 mg (65 mg iron) EC tabletIndicatio ns:Iron Deficiency Anemia Take 1 tablet (324 mg total) by mouth daily with breakfast 60 tablet 3 Active amoxicillin 500 mg tablet/capsule TAKE 4 PILL 1 HOUR BEFORE DENTAL APPOINTMENT. 12 tablet/capsu le 3 Active ciprofloxacin (CIPRO) 500 mg tablet TAKE 1 TABLET (500 MG TOTAL) BY MOUTH 2 (TWO) TIMES A DAY - PLEASE CONTINUE THIS PRESCRIPTION UNTIL 02/2023 (OR 1 YEAR FROM SURGERY) 60 tablet 8 3 Active Active Problems Problem Noted Date Diagnosed Date Upper GI bleeding 09/15/2022 Anxiety and depression 09/15/2022 Primary insomnia 09/15/2022 Acquired absence of knee chano nt following explantation of joint prosthesis 03/06/2022 Infection of prosthetic joint, initial encounter 03/06/2022 Acquired absence of right knee 01/25/2022 Overview (01/25/2022): Added automatically from request for surgery [id number] Flap laceration of lower extremity 11/14/2021 Open wound of right knee, leg, and ankle 022 Overview (11/13/2021): Added automatically from request for surgery [id number] Assessment & Plan (11/14/2021 5:20 PM CDT): 66 year old man, s/p R knee arthroplasty at [facility] 09/30. Fell on R knee 10/17 with subsequent wound dehiscence and pain. S/p superficial I&D 10/18 and cephalexin, but developed persistent drainage over patellar tendon wound, aspirate done 11/04 grew P. Aeruginosa. S/p R TKA explant 11/10/21, bone described as soft. Seen by ID as teleconsult 11/11, started on Vanc/Cefepime 11/11-, OR cultures grew Pansensitive P. Aeruginosa.Pt was initially on cefepime/vancomycin from 11/10-, now transferred to [facility] for gastrocnemius flap+skin graft coverage of a persistent skin defect which was performed on 11/14/21. Recs: -Stop Vancomycin, no evidence of MRSA or other gram positive cocci component to infection noted. -Continue cefepime, can reduce to 2g IV q12h for assistant terminal manager therapy. -While on cefepime please get CBC/CMP once weekly. -Get ESR/CRP every 3 weeks while on IV antibiotics. -Summary of therapy note placed. Infection of prosthetic right knee joint 022 Bandemia 11/09/2021 Cervical spondylosis with myelopathy and radicul opathy 11/09/2021 Degenerative cervical spinal stenosis 11/09/2021 Elevated serum glucose 11/09/2021 Essential hypertension 11/09/2021 Overweight (BMI 25.0-29.9) 11/09/2021 Status post laminectomy 11/09/2021 Infection and inflammatory r eaction due to internal joint prosthesis 11/09/2021 Overview (11/09/2021): Added automatically from request for surgery [id number] Assessment & Plan (01/05/2022 12:31 PM CDT): - Continue ciprofloxacin 750mg BID for R knee PJI, s/p I&D, removal of hardware, and flap coverage (11/28/21), Cx + PSAR. - Pt is s/p IV cefepime 2g q 12 hours. - As per discussions with Dr. Bermudez and Dr. Zavala, will repeat inflammatory markers today. - Discussed that we will make a decision regarding antibiotics once labs result. There remains concern that inflammatory markers will be elevated given fractured spacer, however Dr. Bermudez is pleased with patients healing progress. - Discussed with patient the rational for treatment, culture results, risk of recurrent infection, signs/symptoms of recurrent infection, and to contact ID clinic with any questions or concerns. - Ciprofloxacin has been associated with nausea, diarrhea, headaches, insomnia, restlessness, dizziness. Rarely, it may be associated with tendon rupture (particularly in patients over the age of 60, those concurrently on steroids, and heart/lung/kidney transplant recipients), photosensitivity, QTc prolongation, transaminase elevation, peripheral neuropathy, seizures, interstitial nephritis. CBC and CMP should be monitored regularly while on this medication. Do not take this antibiotic with milk or other calcium enriched drinks or products such as fortified orange juice or Tums. Do not take with antacids, multivitamins, iron tablets, magnesium, or aluminum. If you must take the aforementioned products, take them 2 hours after or 6 hours before taking the antibiotic. Assessment & Plan (12/08/2021 11:06 AM CDT): 66 year old man with R pseudomonal knee PJI, now s/p hardware explant and placement of antimicrobial spacer. On cefepime since 11/10- Continued wound drainage and some wound dehiscence so pt had articulating spacer replaced with static spacer on 11/28/21 however no evidence of new infection with negative 11/28 OR cultures. Doing well on IV cefepime, inflammatory markers improving, wound healing well with minimal bloody drainage. Recs: -Continue cefepime 2g IV q12h until 12/22/21, firm stop with PICC removal -Once patient completes his IV course, will switched to PO ciprofloxacin 750mg PO BID for 1-2 months, contingent on level of healing of knee (goal is stabilization of knee wounds and removal of antony without new dehiscence) -No need for chronic oral suppression given no retained infected hardware. -Continue CBC/CMP weekly, ESR/CRP in 3 weeks. -F/u with ID in 4 weeks. Assessment & Plan (11/30/2021 6:13 PM CDT): 66 yo male with h/o RTKA c/b prosthetic joint infection s/p explant with cultures positive for pseudomonas currently on cefepime. He was incidentally noted to have some wound dehiscence during routine follow up. He is now s/p spacer exchange on 11/28. I would recommend we continue cefepime. I do not feel the need to add gram positive coverage based on the story. Recs: Continue cefepime 2g IV q12 hours ID will write sign off note Benign prostatic hyperplasia without lower urinary tract symptoms 06/11/2021 Hyperlipidemia, unspecified 06/11/2021 Impaired fasting glucose 06/11/2021 Post laminectomy syndrome 12/27/2020 Lumbar radiculopathy 12/27/2020 DDD (degenerative disc disease), lumbar 12/28/19 21 Chronic use of opiate drug for therapeutic purpo se 12/27/2020 Other specified dermatitis 08/22/2018 Acrochordon 04/10/2018 Keratoderma, acquired 04/10/2017 Lentigines 04/10/2017 Hypertrophic scar 10/23/2016 Neoplasm of uncertain behavior of skin 6 Other seborrheic dermatitis 05/15/2016 Corns and callosities 02/27/2016 Splinter in skin 02/27/2016 Acne vulgaris 03/19/2015 Inflamed seborrheic keratosis 09/18/2014 Erythrasma 03/13/2014 Actinic keratosis 03/13/2014 Other seborrheic keratosis 03/13/2014 Complete rupture of rotator cuff 07/05/2010 Immunizations Immunization Administration Dates Next Due Influenza, Quadrivalent, Marielena l Culture-based MDCK, Antibiotic Free, Intramuscular 04/07/2019 Influenza, Quadrivalent, Hig h Dose, Preservative Free, Intrr 05/14/2021,04/21/2020 Influenza, Quadrivalent, Spl it, Preservative Free, Intramuscular 04/11/2018 Influenza, Unspecified 04/08/2019,04/30/2018 Pneumococcal Conjugate PCV 13 05/14/2021 ZOSTER LIVE 12/08/2017,09/24/2017 Surgical History Surgery Date Site/Laterality Comments LAMINECTOMY 06/11/1981 - 06/10/1982 L4/L5 LAMINECTOMY 06/11/1991 - 06/10/1992 L3/L4 SPINAL FIXATION SURGERY W/ IMPLANT 06/11/2020 - 06/10/2021 cervical spine OK ARTHRP KNE CONDYLE&PLATU MEDIAL&LAT COMPARTMENTS 09/14/2021 Right Bicalho KNEE SURGERY 10/18/2021 Right Open I&D - Bicalho KNEE SURGERY 10/17/2021 Right I&D IR PICC LINE PLACEMENT > 5 YEARS 11/11/2021 N/A COLONOSCOPY ROTATOR CUFF REPAIR Bilateral left x 2, right x1 Medical History Medical History Date Comments Hypertension Arthritis Depression Difficulty urinating Hard to intubate Hyperlipidemia, unspecified 06/11/2021 Family History Medical History Relation Name Comments Cancer Brother Hyperlipidemia Father Stroke Father Cancer Mother Anesthesia problems Neg Hx Relation Name Status Comments Brother Father Mother Social History Tobacco Use Types Packs/Day Years Used Date Smoking Tobacco: Former Cigarettes 0.1 15.9 2 - 05/2021 Smokeless Tobacco: Never Tobacco Cessation:Counseling Given: Not Answered Social Connection and Isolat ion Panel [NHANES] Answer Date Recorded In a typical week, how many times do you talk on the phone with family, friends, or neighbors? More than three times a week 09/18/2022 How often do you get togethe r with friends or relatives? More than three times a week 09/18/2022 How often do you attend [facility] or episcopalian services? 1 to 4 times per year 09/18/2022 Do you belong to any clubs o r organizations such as sabianist groups, unions, fraternal or athletic groups, or school groups? No 09/18/2022 How often do you attend meet ings of the clubs or organizations you belong to? Never 09/18/2022 Are you , , di vorced, , never , or living with a partner? 09/18/2022 AUDIT-C Answer Date Recorded Q1: How often do you have a drink containing alc ohol? 2-3 times a week 09/15/2022 Q2: How many drinks containi ng alcohol do you have on a typical day when you are drinking? 1 or 2 09/15/2022 Q3: How often do you have si x or more drinks on one occasion? Never 09/15/2022 Overall Financial Resource Strain (CARDIA) Answe r Date Recorded How hard is it for you to pa y for the very basics like food, housing, medical care, and heating? Not hard at all 09/18/2022 PHQ-2 Answer Date Recorded PHQ-2 Total Score (If total score is 3 or more points, staff should administer the PHQ-9) 0 11/10/2021 Hunger Vital Sign Answer Date Recorded Within the past 12 months, y ou worried that your food would run out before you got the money to buy more. Never true 12/06/19 22 Within the past 12 months, t he food you bought just didn't last and you didn't have money to get more. Never true 12/05/2021 PRAPARE - Transportation Answer Date Re corded In the past 12 months, has l ack of transportation kept you from medical appointments or from getting medications? No 09/09 In the past 12 months, has l ack of transportation kept you from meetings, work, or from getting things needed for daily living? No 09/18/2022 Housing Stability Vital Sign Answer Ward e Recorded In the last 12 months, was t here a time when you were not able to pay the mortgage or rent on time? No 12/05/2021 In the last 12 months, how many places have you lived? 1 12/05/2021 In the last 12 months, was t here a time when you did not have a steady place to sleep or slept in a penitentiary (including now)? No 12/05/2021 Personal Safety Answer Date Recorded Have you ever been in or are you currently in a harmful physical or emotional relationship or is someone making you feel afraid or unsafe? 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 Gender Identity Not on file Sexual Orientation Not on file Obstetrics History Last Filed Vital Signs Vital Sign Reading Time Taken Comments Blood Pressure 102/62 09/19/2022 8:45 AM CDT Pulse 68 09/19/2022 8:45 AM CDT Temperature 36.9 C (98.4 F) 09/19/2022 8:45 AM CDT Respiratory Rate 16 09/19/2022 8:45 AM CDT Oxygen Saturation 99% 09/19/2022 8:45 AM CDT Inhaled Oxygen Concentration - - Weight 99.8 kg (220 lb) 03/06/2022 3:40 PM CDT Height 182.9 cm (6') 03/06/2022 3:40 PM CDT Body Mass Index 29.84 03/06/2022 3:40 PM CDT Plan of Treatment Health Maintenance Due Date Last Done Comments Colon Cancer Screening-Colonoscopy 1955 Hepatitis C Screening 1955 DTaP/Tdap/Td Vaccine (1 - Tdap) 1965 Hepatitis B Screening 1972 Zoster Vaccine (2 of 3) 02/02/2018 12/08/2017, 09/24 Abdominal Aortic Aneurysm (A AA) Screen 2019 Well Visit 65+ 2019 Pneumococcal vaccine 65+ (2 of 2 - PPSV23) 05/14/2022 05/14/2021 Depression Screening 11/09/2022 11/09/2021 Fall Risk Assessment 09/20/2023 09/19/2022 Covid-19 Vaccine (5 - 2023-2 5 season) 2024 10/03/2021, 05/03/2021, 09/17/2020, Additional history exists Influenza Vaccine (#1) 2024 3, 05/14/2021, 04/21/2020, Additional history exists Goals Goal Patient Goal Type Associated Problems Recent Progress Patient-Stated? Author CCM Chronic Pain Care Plan Chronic Care Management Ashley Degroot, RN Note: Problem: Chronic Pain Goals: 1. Minimize further functional decline 2. Maximize quality of life 3. Control pain Strategies: - Activity/exercise program recommendation - Conservative stepwise pain medicine strategy with multi-disciplinary approach - Recommend healthy lifestyle strategies and compensatory methods as needed Medical Devices Implanted Type Area Angular Developer Device Identifier Shelf Expiration Date Model / Serial / Lot [employer] Simplex P Radiopaque Full Dose Cement Bone Sterile 6191-1-010 - S0 - [id number] Implanted:Qty: 2 on 03/06/2022 by Mary Alice Bermudez MD at [facility] Bone Cement Right: Knee [employer] 05/10/2024 6191-1-010 / 0 / [id number] [employer] Simplex P Radiopaque Full Dose Cement Bone Sterile 6191-1- - S0 - [id number] Implanted:Qty: 1 on 03/06/2022 by Mary Alice Bermudez MD at [facility] Bone Cement Right: Knee [employer] 03/10/2024 6191-1-010 / 0 / [id number] [employer] Simplex P Radiopaque Full Dose Cement Bone Sterile 6191-1-010 - S0 - [id number] Implanted:Qty: 1 on 03/06/2022 by Mary Alice Bermudez MD at [facility] Bone Cement Right: Knee [employer] 08/09/2023 6191-1-010 / 0 / [id number] [employer] Nexgen Rotate Hinge Stem Knee 5 Plate Tibial Zimaloy Pmma Uhmwpe [id number] - S0 - [id number] Implanted:Qty: 1 on 03/06/2022 by Mary Alice Bermudez MD at [facility] Other - see comments Right: Knee [employer] [id number] 1 08/08/2024 [id number] / 0 / [id number] [employer] Nexgen 15mm 30mm 75mm Rotate Hinge Knee Tibia Straight Extension [id number] - S0 - [id number] Implanted:Qty: 1 on 03/06/2022 by Mary Alice Bermudez MD at [facility] Other - see comments Right: Knee [employer] [id number] 1 01/23/2030 [id number] / 0 / [id number] [employer] Persona [place] [facility] Knee Medium Augment Tibial Trabecular Metal [id number] - S0 - [id number] Implanted:Qty: 1 on 03/06/2022 by Mary Alice Bermudez MD at [facility] Other - see comments Right: Knee [employer] [id number] 1 03/22/2030 [id number] / 0 / [id number] [employer]Richco/O rtho Prep-Im Plug [place] Sponge Suction Hip Kit Thr Latex Free [id number] - S0 - [id number] Implanted:Qty: 1 on 03/06/2022 by Mary Alice Bermudez MD at [facility] Other - see comments Right: Knee [employer]O rtho 11/23/2031 [id number] / 0 / [id number] [employer]/O rtho Carreno 25mm Plug Hip Femoral 16-21mm Restrictor Bone Cement Sterile 767906 - S0 - [id number] Implanted:Qty: 1 on 03/06/2022 by Mary Alice Bermudez MD at [facility] Other - see comments Right: Knee [employer]/O rtho [id number] 08/20/2031 276912 / 0 [id number] Joint Right: Knee Plates,Screws N/A: Cervica l-Thora cic Spine Description:C1-T2 Biocomposites Stimulan Rapid Cure Kit Paste Cycle Counter 10cc 20cc Bone Void 620-010 - [id number] Implanted:Qty: 1 on 11/10/2021 by Mary Alice Bermudez MD at [facility] Right: Knee [employer] 02/09/2024 620-010 / / [id number] Description:Implant pause pe rformed [employer] Palacos R High Viscosity Cement 40gm Bone Green 5902273 - [id number] Implanted:Qty: 1 on 11/10/2021 by Mary Alice Bermudez MD at [facility] Right: Knee [employer] 02/08/2026 [id number] / / [id number] Description:Implant pause pe rformed [employer] Palacos R High Viscosity Cement 40gm Bone Green 4097332 - [id number] Implanted:Qty: 1 on 11/10/2021 by Mary Alice Bermudez MD at [facility] Right: Knee [employer] 02/08/2026 [id number] / / [id number] Description:Implant pause pe rformed [employer] Palacos R High Viscosity Cement 40gm Bone Green 6801608 - [id number] Implanted:Qty: 1 on 11/10/2021 by Mary Alice Bermudez MD at [facility] Right: Knee [employer] 02/08/2026 [id number] / / [id number] Description:Implant pause pe rformed [employer] [id number] Tibial Attune Cr Alpoly Sz 8 12mm - [id number] Implanted:Qty: 1 on 11/10/2021 by Mary Alice Bermudez MD at [facility] Right: Knee [employer] [id number] 08/08/2025 [id number] / / [id number] Description:Implant pause pe rformed [employer] Inc Attune Cemented Cruciate Retaining Knee Right 7 Component Femoral [id number] - [id number] Implanted:Qty: 1 on 11/10/2021 by Mary Alice Bermudez MD at [facility] Right: Knee [employer] [id number] 09/09/2031 [id number] / / [id number] Description:Implant pause pe rformed [employer] Palacos R High Viscosity Cement 40gm Bone Green 8928008 - [id number] Implanted:Qty: 1 on 11/28/2021 by Mary Alice Bermudez MD at [facility] Right: Knee [employer] 04/10/2024 [id number] / / [id number] [employer] Palacos R High Viscosity Cement 40gm Bone Green 0007117 - [id number] Implanted:Qty: 2 on 11/28/2021 by Mary Alice Bermudez MD at [facility] Right: Knee [employer] 02/08/2026 [id number] / / [id number] [employer] Nexgen 02v89m36de Rotate Hinge Machine Mold Knee 5-6 F Insert [id number] - [id number] Implanted:Qty: 1 on 03/06/2022 by Mary Alice Bermudez MD at [facility] Right: Knee [employer] [id number] 1 08/23/2025 [id number] / / [id number] [employer] Nexgen 56e49vw Rotate Hinge Knee Right F Component Femoral [id number] - [id number] Implanted:Qty: 1 on 03/06/2022 by Mary Alice Bermudez MD at [facility] Right: Knee [employer] [id number] 11/14/2025 [id number] / / [id number] [employer] Nexgen Od20 Mm L100 Mm L145 Mm Rotate Hinge Knee; Tibia Straight [id number] - [id number] Implanted:Qty: 1 on 03/06/2022 by Mary Alice Bermudez MD at [facility] Right: Knee [employer] 07/11/2024 [id number] / / [employer] Nexgen 10mm Distal F Block Augmentation Precoat [id number] - [id number] Implanted:Qty: 1 on 03/06/2022 by Mary Alice Bermudez MD at [facility] Right: Knee [employer] [id number] 08/08/2025 [id number] / / [id number] [employer] Nexgen 5mm Posterior F Block Augmentation Precoat [id number] - [id number] Implanted:Qty: 1 on 03/06/2022 by Mary Alice Bermudez MD at [facility] Right: Knee [employer] [id number] 02/08/2029 [id number] / / [id number] [employer] Nexgen 15mm Rotate Hinge Knee Distal F Augment Femoral Tivanium [id number] - [id number] Implanted:Qty: 1 on 03/06/2022 by Mary Alice Bermudez MD at [facility] Right: Knee [employer] [id number] 1 08/09/2023 [id number] / / [id number] Explanted Type Area Angular Developer Device Identifier Shelf Expiration Date Model / Serial / Lot Conmed Vahid Conmed 16mm Duraclip [id number] - [id number] Explanted:Qty: 1 on 09/16/2022 by Henrry Hancock MD at [facility] Clip N/A: Duodenum Conmed Vahid 08/18/2024 [id number] / / [id number] Description:Placed at [facility] ulcer site Insurance ADVANTAGE CHOICE PPO ADVANTAGE CHOICE PPO MEDICARE SOLUTIONS [facility] MEDIC[facility] Address: [address] [address] [place] [address] [employer] ADVANT[employer] CHOICE PPO Advance Directives For more information, please contact: [phone] * Full Code (Latest Code Status on File) Date Activated Date Inactivated Comments 09/15/2022 8:33 PM 09/19/2022 3:45 PM * Full Code Date Activated Date Inactivated Comments 03/06/2022 3:26 PM 03/11/2022 1:31 PM * Full Code Date Activated Date Inactivated Comments 11/28/2021 4:44 PM 12/03/2021 3:08 PM * Full Code Date Activated Date Inactivated Comments 11/14/2021 12:17 AM 11/19/2021 2:50 PM * Full Code Date Activated Date Inactivated Comments 11/10/2021 4:44 PM 11/13/2021 11:42 PM Care Teams Honing Machine Operator Tool Relationship Specialty Start Date End Date Hung Garcia MD [address] [facility] [address] [place] [address] PCP - General Family Medicine 04/14/20 [place] [address] [place] [address] Consulting Physician Gastroenterology 09/19/22
--- OUTSIDE RECORDS SUMMARY | 2024-08-14 12:05 | XMS_ITS | Clinical Summary ---
Author Organization [facility] Address [address] [place] [address] Care Team Providers Care Nub Card Tender Name Role Phone Hung Garcia MD Primary Care Provider [phone] Source Comments [facility],non-owned Affiliates and Associated Physician Practices is amultiple site organization consisting of ambulatory clinics and hospital sitesin [place], [place], [place] and [place]. This disclosure is being madepursuant to the Care Everywhere program and may not contain all information available regarding this patient. Last updated 18.[facility] Allergies Active Allergy Reactions Criticality Noted Date Comments Lactose GI Discomfort 04/10/2018 Medications * Be aware that medications may not be up to date on this document. Alwaysverify current medications with the patient. Medication Sig Dispensed Refills Start Date End Date Status tamsulosin (FLOMAX) 0.4 MG capsule 4 01/02/2017 Active losartan (COZAAR) 25 MG tablet Take 1 tablet by mouth once daily 4 03/26/2018 Active amLODIPine (NORVASC) 10 MG tablet Take 1 tablet by mouth once daily 1 04/03/2018 Active busPIRone (BUSPAR) 30 MG tablet Take 1 tablet by mouth once daily 2 01/21/2018 Active hydroCHLOROthiazide (HYDRODIURIL) 25 MG tablet Take 25 mg by mouth once daily 2 03/25/2018 Active desvenlafaxine SR 24hr (PRISTIQ) 100 MG tablet Take 1 tablet by mouth once daily 1 01/24/2018 Active tretinoin (RETIN-A) 0.05 % creamIndications:Come felice acne Pea sized amount to open comedones nightly. 30 days supply. 20 g 11 04/10/2018 Active clindamycin (CLEOCIN) 1 % pledget Apply to affected areas between toes twice daily. 30 day 60 Each 11 05/20/2019 Active ciclopirox (LOPROX) 1 % shampooIndications:Ot her seborrheic dermatitis USE ON SCALP AND FACE DAILY 360 mL 4 08/06/2019 Active clindamycin (CLEOCIN) 1 % gelIndications:Erythr asma Apply in between toes daily. #90 day supply 90 g 1 12/03/2019 Active tacrolimus (PROTOPIC) 0.1 % ointmentIndications:I rritant contact dermatitis due to other agents Apply to hands two times daily. 90 days supply. 300 g 1 12/03/2019 Active clobetasol (TEMOVATE) 0.05 % ointment Apply to hands twice daily PRN. 90 days supply. 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 Lentigines 04/10/2017 Hypertrophic scar 10/23/2016 Other seborrheic dermatitis 05/15/2016 Neoplasm of uncertain behavior of skin 6 Corns and callosities 02/27/2016 Splinter in skin 02/27/2016 Acne vulgaris 03/19/2015 Inflamed seborrheic keratosis 09/18/2014 Other seborrheic keratosis 03/13/2014 Erythrasma 03/13/2014 Actinic keratosis 03/13/2014 Immunizations Name Administration Dates Next Due INFLUENZA VACCINE 04/08/2019,04/30/2018 Family History Medical History Relation Name Comments Cancer Mother Allergy (Severe) Neg Hx CVA Neg Hx Cancer - Breast Neg Hx Cancer - Skin, Melanoma Neg Hx Cancer - Skin, Non Melanoma Neg Hx Eczema Neg Hx Hemophilia Neg Hx Psoriasis Neg Hx Rashes/Skin Problems Neg Hx Relation Name Status Comments Mother Social History Tobacco Use Types Packs/Day Years Used Date Smoking Tobacco: Every Day Cigarettes Smokeless Tobacco: Never Alcohol Use Standard Drinks/Week Comments No 0 (1 standard drink = 0.6 oz pur e alcohol) Sex and Gender Information Value Date Recorded Sex Assigned at Not on file Gender Identity Not on file Sexual Orientation Not on file Plan of Treatment Health Maintenance Due Date Last Done Comments GENO (AGES 45-75) - COL ON CA SCREENING 1954 COLON MONITORING 1954 COLONOSCOPY - COLON CA SCREENING 1954 CT COLONOGRAPHY - COLON CA SCREENING 1954 Colorectal Cancer Screening 1954 FIT - COLON CA SCREENING 1954 FLEX SIG - COLON CA SCREENING 1954 LIPID TESTING 1954 HEPATITIS C SCREENING 06/18/1972 DTAP/TDAP/TD VACCINES (1 - Tdap) 1973 PNEUMOCOCCAL VACCINE 50+ (1 of 1 - PCV) 2004 ZOSTER VACCINE (1 of 2) 2004 AAA SCREENING 2019 COVID-19 VACCINE (1 - 2023-2 5 season) 2024 INFLUENZA VACCINE (#1) 2024 9, 04/30/2018 DEPRESSION SCREENING 06/11/2024 Respiratory Syncytial Virus (RSV) Vaccine Pt: or over 60 yrs (1 - 1-dose 75+ series) 2029 HEPATITIS B VACCINE Aged Out No longe r eligible based on patient's age to complete this topic HIB VACCINE Aged Out No longer eligi ble based on patient's age to complete this topic HPV VACCINE Aged Out No longer eligi ble based on patient's age to complete this topic MENINGOCOCCAL (Group B) VACCINE Aged Out No longer eligible b ased on patient's age to complete this topic MENINGOCOCCAL VACCINE Aged Out No rj marcus eligible based on patient's age to complete this topic Care Teams Nub Card Tender Relationship Specialty Start Date End Date Hung Garcia MD [address] [place] [address] PCP - General 02/01/16
--- OUTSIDE RECORDS SUMMARY | 2024-08-14 12:05 | XMS_ITS | Encounter Summary ---
Author Organization [facility] Address [address] [place] [address] Care Team Providers Care Clinical Counselor Name Role Phone Hung Garcia MD Primary Care Provider Reason for Visit * Reason Onset Date Comments CONSULT TO HOSPITALIST 08/02/[address] ON [address] [facility] Encounter Details Date Type Department Care Team (Late st Contact Info) Description 08/02/2020 Telephone [facility] Admitting [address] [place] [address] [place] [address] [address] CONSULT TO HOSPITALIST (LEFT MESSAGE ON DR [facility]) Social History Tobacco Use Types Packs/Day Years Used Date Smoking Tobacco: Former Cigarettes 0.8 15 1 - 03/25/2020 Smokeless Tobacco: Never Alcohol Use Standard Drinks/Week Comments Yes 0 (1 standard drink = 0.6 oz pur e alcohol) 2 drinks per week Feeling Safe Answer Date Recorded Within the last year, have y ou been afraid of your partner or ex-partner? No 08/02/2020 Within the last year, have y ou been humiliated or emotionally abused in other ways by your partner or ex-partner? No Within the last year, have y ou been kicked, hit, slapped, or otherwise physically hurt by your partner or ex-partner? No 08/02/2020 Within the last year, have y ou been raped or forced to have any kind of sexual activity by your partner or ex-partner? No 08/02/2020 Social Connections Answer Date Recorded In a typical week, how many times do you talk on the phone with family, friends, or neighbors? Once a week 08/02/19 21 Frequency of Social Gatherin gs with Friends and Family Not on file 08/02/2020 How often do you attend chur or congregation services? 1 to 4 times per year 08/02/2020 Do you belong to any clubs o r organizations such as lutheran groups, unions, fraternal or athletic groups, or school groups? No 08/02/2020 How often do you attend meet ings of the clubs or organizations you belong to? Never 08/02/2020 Are you , , di vorced, , never , or living with a partner? 08/02/2020 Financial Resource Strain Answer Date R ecorded How hard is it for you to pa y for the very basics like food, housing, medical care, and heating? Not hard at all 08/02/2020 Food Insecurity Answer Date Recorded Within the past 12 months, y ou worried that your food would run out before you got the money to buy more. Never true 08/02/19 21 Within the past 12 months, t he food you bought just didn't last and you didn't have money to get more. Never true 08/02/2020 Transportation Needs Answer Date Record ed In the past 12 months, has l ack of transportation kept you from medical appointments or from getting medications? No 07/13 In the past 12 months, has l ack of transportation kept you from meetings, work, or from getting things needed for daily living? No 08/02/2020 Sex and Gender Information Value Date Recorded Sex Assigned at Not on file Legal Sex Male 4:19 PM SITE IDENTIFICATION SPECIALIST Gender Identity Not on file Sexual Orientation Not on file COVID-19 Exposure Response Date Recorded In the last month, have you been in contact with someone who was confirmed or suspected to have Coronavirus / COVID-19? No / Unsure 08/02/2020 7:03 AM SITE IDENTIFICATION SPECIALIST documented as of this encounter Functional Status * Intimate Partner Violence Question Answer Date of Assessment Author Within the last year, have y ou been humiliated or emotionally abused in other ways by your partner or ex-partner? No 08/02/2020 5:55 PM Prakash Marquez ea, RN Within the last year, have y ou been afraid of your partner or ex-partner? No 08/02/2020 5:55 PM Stanley Marquez RN Within the last year, have y ou been raped or forced to have any kind of sexual activity by your partner or ex-partner? No 08/02/2020 5:55 PM Prakash Marquez ea, RN Within the last year, have y ou been kicked, hit, slapped, or otherwise physically hurt by your partner or ex-partner? No 08/02/2020 5:55 PM Prakash Marquez ea, RN documented as of this encounter Plan of Treatment Not on file documented as of this encounter Visit Diagnoses Not on filedocumented in this encounter Care Teams Clinical Counselor Relationship Specialty Start Date End Date Hung Garcia MD [address] [facility] [address] [id number] PCP - General Family Practice 06/15/20 documented as of this encounter
--- OUTSIDE RECORDS SUMMARY | 2024-08-14 12:05 | XMS_ITS | Referral Summary ---
Author Organization [facility] Address [address] [facility] [place] [address] Care Team Providers Care Dog Beautician Name Role Phone Hung Garcia MD Primary Care Provider [phone] Source Comments [facility],non-owned Affiliates and Associated Physician Practices is amultiple site organization consisting of ambulatory clinics and hospital sitesin [place], [place], [place] and [place]. This disclosure is being madepursuant to the Care Everywhere program and may not contain all information available regarding this patient. Last updated 18.[facility] Allergies Active Allergy Reactions Criticality Noted Date [...] Administration Dates Next Due INFLUENZA VACCINE 04/08/2019,04/30/2018 Social History Tobacco Use Types Packs/Day Years Used Date Smoking Tobacco: Every Day Cigarettes Smokeless Tobacco: Never Alcohol Use Standard Drinks/Week Comments No 0 (1 standard drink = 0.6 oz pur e alcohol) Sex and Gender Information Value Date Recorded Sex Assigned at Not on file Gender Identity Not on file Sexual Orientation Not on file Plan of Treatment Not on file Care Teams Dog Beautician Relationship Specialty Start Date End Date Hung Garcia MD [address] [place] [address] PCP - General 02/01/16
--- OUTSIDE RECORDS SUMMARY | 2024-08-14 12:05 | XMS_ITS | Patient Health Summary ---
Author Organization [facility] Address [address] [facility] [place] [address] Care Team Providers Care Channel Supervisor Name Role Phone Hung Garcia MD Primary Care Provider [phone] Note from [facility],non-owned Affiliates and Associated Physician Practices is amultiple site organization consisting of ambulatory clinics and hospital sitesin [place], [place], [place] and [place]. This disclosure is being madepursuant to the Care Everywhere program and may not contain all information available regarding this patient. Last updated 18.[facility] Allergies * Lactose(GI Discomfort) Medications * Be aware that medications may not be up to date on this document. Alwaysverify current medications with the patient. * tamsulosin (FLOMAX) 0.4 MG capsule(Started 01/02/2017) 4 refills left * losartan (COZAAR) 25 MG tablet(Started 03/26/2018) Take 1 tablet by mouth once daily 4 refills left * amLODIPine (NORVASC) 10 MG tablet(Started 04/03/2018) Take 1 tablet by mouth once daily 1 refill left * busPIRone (BUSPAR) 30 MG tablet(Started 01/21/2018) Take 1 tablet by mouth once daily 2 refills left * hydroCHLOROthiazide (HYDRODIURIL) 25 MG tablet(Started 03/25/2018) Take 25 mg by mouth once daily 2 refills left * desvenlafaxine SR 24hr (PRISTIQ) 100 MG tablet(Started 01/24/2018) Take 1 tablet by mouth once daily 1 refill left * tretinoin (RETIN-A) 0.05 % cream(Started 04/10/2018) Pea sized amount to open comedones nightly. 30 days supply. 11 refills remaining * clindamycin (CLEOCIN) 1 % pledget(Started 05/20/2019) Apply to affected areas between toes twice daily. 30 day 11 refills by 05/19/2020 * ciclopirox (LOPROX) 1 % shampoo(Started 08/06/2019) USE ON SCALP AND FACE DAILY 4 refills by 08/05/2020 * clindamycin (CLEOCIN) 1 % gel(Started 12/03/2019) Apply in between toes daily. #90 day supply 1 refill by 12/02/2020 * tacrolimus (PROTOPIC) 0.1 % ointment(Started 12/03/2019) Apply to hands two times daily. 90 days supply. 1 refill by 12/02/2020 * clobetasol (TEMOVATE) 0.05 % ointment(Started 12/08/2019) Apply to hands twice daily PRN. 90 days supply. 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 Lentigines 04/10/2017 Hypertrophic scar 10/23/2016 Other seborrheic dermatitis 05/15/2016 Neoplasm of uncertain behavior of skin 6 Corns and callosities 02/27/2016 Splinter in skin 02/27/2016 Acne vulgaris 03/19/2015 Inflamed seborrheic keratosis 09/18/2014 Other seborrheic keratosis 03/13/2014 Erythrasma 03/13/2014 Actinic keratosis 03/13/2014 Immunizations * INFLUENZA VACCINE(Given 04/08/2019, 04/30/2018) Social History Tobacco Use Types Packs/Day Years Used Date Smoking Tobacco: Every Day Cigarettes Smokeless Tobacco: Never Alcohol Use Standard Drinks/Week Comments No 0 (1 standard drink = 0.6 oz pur e alcohol) Sex and Gender Information Value Date Recorded Sex Assigned at Not on file Gender Identity Not on file Sexual Orientation Not on file Procedures * MS DESTROY PREMALIG LESION, 1ST LESION(Performed 04/11/2019) Performed for Actinic keratoses * MS DESTROY PREMALIG LESION, 2-14(Performed 04/11/2019) Performed for Actinic keratoses * MS DESTRUCT BENIGN LESION, 1-14(Performed 04/10/2018) Performed for Seborrheic keratosis, inflamed * MS DESTROY PREMALIG LESION, 1ST LESION(Performed 04/10/2018) Performed for Actinic keratoses * MS DESTROY PREMALIG LESION, 2-14(Performed 04/10/2018) Performed for Actinic keratoses * DERMATOPATHOLOGY(Performed 05/15/2016) Results * PATHOLOGY TISSUE FOR DERMATOLOGY (05/15/2016 12:00 AM MOVEMENT EDUCATION SPECIALIST) Result CASE: [id number] PATIENT: JUNIOR CHEN PATHOLOGIC DIAGNOSIS: Central chest: BENIGN VERRUCOUS KERATOSIS, INFLAMED CLINICAL DATA: ISK vs VV R/O SCC. GROSS DESCRIPTION: Received is one formalin filled container labeled with the patients name and designated central chest. The specimen consists of a shave biopsy measuring [id number]. The specimen is bisected and submitted in 1 cassette. Jar 0. MICROSCOPIC DESCRIPTION: Sections show hyperkeratosis, papillomatosis, hypergranulosis , and acanthosis. These histological findings can be seen in a verruca vulgaris or a seborrheic keratosis. Inflammatory cells are present within the dermis. Electronically signed out by Bryanna Sorensen M.D. 05/17/2016 1:03:05PM [facility] Comment: Performed at: Dermatopathology Laboratory [facility] - Department of Dermatology [address] [place] [address] 5th [place] [address] Phone number: [phone] FAX: [phone] Skin (tissue) specimen (specimen) 05/15/2016 05/16/2016 Narrative [facility] - 05/17/2016 1:03 PM MOVEMENT EDUCATION SPECIALIST Terrence Milton MD Preferred Lab:->Derm-Path Specimen A: Type->Shave Site->central chest History->60 yo CM with 5-6 mm skin colored to pink hyperkeratotic papule, reports growth x 1 month Impression->ISK vs. VV r/o SCC Check Margins:->N/A Prior Biopsy->N/A Terrence Milton MD LAB - PATHOLOGY/CYTO LOGY ORDERABLES [facility] [address] [facility] [place] [address], [facility] [phone] Care Teams Channel Supervisor Relationship Specialty Start Date End Date Hung Garcia MD [address] [place] [address] PCP - General 02/01/16
--- OUTSIDE RECORDS SUMMARY | 2024-08-14 12:05 | XMS_ITS | Clinical Summary ---
Author Organization [facility] [address] [facility] Address [address] [place] [address] Care Team Providers Care Collection Team Lead Name Role Phone Hung Garcia MD Primary Care Provider [phone] Allergies Active Allergy Reactions Criticality Noted Date Comments Lactose Diarrhea Low 04/10/2018 Medications tamsulosin (FLOMAX) 0.4 mg capsule Take 0.4 mg by mouth 2 times daily. Active fenofibrate nanocrystallized (TRIGLIDE) 160 mg Tablet Take 160 mg by mouth daily. Active losartan (COZAAR) 25 mg tablet Take 25 mg by mouth daily. Active busPIRone (BUSPAR) 15 mg Tablet Take 15 mg by mouth daily. Active amLODIPine (NORVASC) 10 mg tablet Take 10 mg by mouth daily. Active desvenlafaxine (PRISTIQ) 100 mg Extended Release 24 hour tablet Take 100 mg by mouth daily with breakfast. Active hydroCHLOROthiazide 25 mg tablet Take 25 mg by mouth daily. Active ibuprofen (MOTRIN) 800 mg tablet Take 800 mg by mouth every 6 hours as needed for Pain, Mild. Active zolpidem (AMBIEN) 5 mg tablet Take 5 mg by mouth daily at bedtime. Active clindamycin phosphate (CLEOCIN T) 1 % Gel Apply in between toes daily. #90 day supply 0 Active clobetasoL (TEMOVATE) 0.05 % Ointment Apply to hands twice daily PRN. 90 days supply. 0 Active tacrolimus (PROTOPIC) 0.1 % Ointment Apply to hands two times daily. 90 days supply. 0 Active gabapentin (NEURONTIN) 400 mg capsule Take 1 Capsule (400 mg) by mouth 3 times daily. 90 Capsule 1 1 Active cyclobenzaprine (FLEXERIL) 5 mg Tablet Take 1 Tablet (5 mg) by mouth 3 times daily as needed for Spasm. 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 1 to 4 times per year 08/02/2020 Do you belong to any clubs o r organizations such as synagogue groups, unions, fraternal or athletic groups, or [...] on file Legal Sex Male 4:19 PM STERILE TECHNICIAN Gender Identity Not on file Sexual Orientation Not on file Last Filed Vital Signs Vital Sign Reading Time Taken Comments Blood Pressure 133/87 08/04/2020 3:54 PM STERILE TECHNICIAN Pulse 76 08/04/2020 3:54 PM STERILE TECHNICIAN Temperature 36.8 C (98.3 F) 08/04/2020 3:54 PM STERILE TECHNICIAN Respiratory Rate 16 08/04/2020 3:54 PM STERILE TECHNICIAN Oxygen Saturation 98% 08/04/2020 3:54 PM STERILE TECHNICIAN Inhaled Oxygen Concentration - - Weight 94.8 kg (209 lb) 02/17/2021 2:34 PM CDT Height 182.9 cm (6') 02/17/2021 2:34 PM CDT Body Mass Index 28.35 02/17/2021 2:34 PM CDT Plan of Treatment Health Maintenance Due Date Last Done Comments DTAP/TDAP/TD VACCINES (1 - Tdap) 1973 COLORECTAL SCREENING 1999 Colorectal Cancer Screening 1999 FIT-DNA Q 3 years 1999 FIT/FOBT Q 1 year 1999 Flex Sig/CT Colonography Q 5 years 1999 PNEUMOCOCCAL VACCINE 50+ YEARS (1 of 1 - PCV) 06/23/19 05 ZOSTER VACCINE (1 of 2) 2004 INFLUENZA VACCINE (#1) 2024 04/14/2020 RSV VACCINE (60+ or ) (1 - 1-dose 75+ series) 2029 Medical Devices Implanted Type Area Rn Plastic Surgery Device Identifier Shelf Expiration Date Model / Serial / Lot Filler Bone Stimulan Paste 5cc W/Beads 620-005 - Sna Implanted:Qty: 1 on 08/02/2020 by Mario Maston MD at [facility] [employer] N/A: Spine Cervical Posterior BI[employer]OM[employer]ES 02/08/2023 620-005 / NA / [id number] Description:mixed with 500mg vancomycin GAVINO REQ#[id number] Attila Std [id number] - Sna Implanted:Qty: 2 on 08/02/2020 by Mario Matson MD at [facility] Attila N/A: Spine Cervical Posterior [employer] SOFAMOR DANEK [id number] / NA / NA Description:load # [id number] date 07/28/2020 GAVINO REQ#[id number] Screw 2.5x26mm [id number] - Sna Implanted:Qty: 1 on 08/02/2020 by Mario Matson MD at [facility] Screw N/A: Spine Cervical Posterior [employer]FAMOR [employer]ANEK [id number] / NA / NA Description:load #[id number] date 07/28/2020 Screw Infinity Multi-Ax 4.0x26mm [id number] - Sna Implanted:Qty: 1 on 08/02/2020 by Mario Matson MD at [facility] Screw N/A: Spine Cervical Posterior [employer]ANEK [id number] / NA / NA Description:load # [id number] date 07/28/2020 Screw Infinity 4.0x32mm Ma Occipitocerv [id number] - Sna Implanted:Qty: 1 on 08/02/2020 by Mario Matson MD at [facility] Screw N/A: Spine Cervical Posterior [employer]ANEK [id number] / NA / NA Description:load # [id number] date 07/24/2020 Screw Set Persona Std [id number] - Sna Implanted:Qty: 13 on 08/02/2020 by Mario Matson MD at [facility] Screw N/A: Spine Cervical Posterior [employer] [id number] / NA / NA Description:load # [id number] date 07/28/2020 Screw Infinity 3.5x20mm Ma Occipitocerv [id number] - Sna Implanted:Qty: 1 on 08/02/2020 by Mario Matson MD at [facility] Screw N/A: Spine Cervical Posterior [employer] [id number] / NA / NA Description:load # [id number] date 07/28/2020 Screw Infinity 3.5x24mm Ma Occipitocerv [id number] - Sna Implanted:Qty: 1 on 08/02/2020 by Mario Matson MD at [facility] Screw N/A: Spine Cervical Posterior [employer] [id number] / NA / NA Description:load # [id number] date 07/28/2020 Screw Infinity Multi-Ax 3.5x18mm [id number] - Sna Implanted:Qty: 3 on 08/02/2020 by Mario Matson MD at [facility] Screw N/A: Spine Cervical Posterior [employer] [id number] / NA / NA Description:load # [id number] date 07/28/2020 Screw Spinal Multi Surya 3.5x16mm [id number] - Sna Implanted:Qty: 3 on 08/02/2020 by Mario Matson MD at [facility] Screw N/A: Spine Cervical Posterior [employer] [id number] / NA / NA Description:load # [id number] date 07/28/2020 Screw Spinal Multi Surya 3.5x14mm [id number] - Sna Implanted:Qty: 1 on 08/02/2020 by Mario Matson MD at [facility] Screw N/A: Spine Cervical Posterior [employer] [id number] / NA / NA Description:load #[id number] date 07/28/2020 Screw Infinity 4.0x30mm Ma Occipitocerv [id number] Implanted:Qty: 1 on 08/02/2020 by Mario Matson MD at [facility] Spine N/A: Spine Cervical Posterior [employer]K [id number] / [id number] Description:ENTERED BY RN [id number] 1X ADD Explanted Type Area Rn Plastic Surgery Device Identifier Shelf Expiration Date Model / Serial / Lot Hemostatic Surgiflo 8ml W/Thrombin 2994 - [id number] Explanted:Qty : 1 on 08/02/2020 by Mario Matson MD at [facility] Hemostatic N/A: Spine Cervical Posterior [employer] [id number] 11/08/2021 2994 / / [id number] Hemostatic Surgiflo 8ml W/Thrombin 2994 - [id number] Explanted:Qty : 1 on 08/02/2020 by Mario Matson MD at [facility] Hemostatic N/A: Spine Cervical Posterior [employer] [id number] 11/08/2021 2994 / / [id number] Hemostatic Surgifoam [id number] - Explanted:Qty : 1 on 08/02/2020 by Mario Matson MD at [facility] Hemostatic N/A: Spine Cervical Posterior J[employer] [id number] 02/19/2024 1975 / NA / [id number] Insurance MEDICARE PART A HOSPITAL ONLY BCBS BLUE ACCESS CHOICE RX [facility] [employer] Advance Directives For more information, please contact: [phone] * Full Code (Latest Code Status on File) Date Activated Date Inactivated Comments 08/02/2020 5:48 PM 08/04/2020 6:15 PM Care Teams Collection Team Lead Relationship Specialty Start Date End Date Hung Garcia MD [address] [facility] [address] [place] [address] PCP - General Family Practice 06/15/20
--- OUTSIDE RECORDS SUMMARY | 2024-08-14 12:05 | XMS_ITS | Referral Summary ---
Author Organization [facility] Address [address] [place] [address] Care Team Providers Care Accounting Advisory Services Manager Name Role Phone Hung Garcia MD Primary [...] (01/25/2022): Added automatically from request for surgery [id number] Flap laceration of lower extremity 11/14/2021 Open wound of right knee, leg, and ankle 022 Overview (11/13/2021): Added automatically from request for surgery [id number] Assessment & Plan (11/14/2021 5:20 PM CDT): 66 year old man, s/p R knee arthroplasty at [facility] 09/30. Fell on R knee 10/17 with [...] on cefepime/vancomycin from 11/10-, now transferred to [facility] for gastrocnemius flap+skin graft coverage of a persistent skin defect which was performed on 11/14/21. Recs: -Stop Vancomycin, no evidence of MRSA or other gram positive cocci component to infection noted. 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 -While on cefepime please get CBC/CMP [...] (11/09/2021): Added automatically from request for surgery [id number] Assessment & Plan (01/05/2022 12:31 PM CDT): [...] Conjugate PCV 13 05/14/2021 ZOSTER LIVE 12/08/2017,09/24/2017 Social History Tobacco Use Types Packs/Day Years Used Date Smoking Tobacco: Former Cigarettes 0.1 15.9 2 006 - 05/2021 Smokeless Tobacco: Never Tobacco Cessation:Counseling [...] week 09/18/2022 How often do you attend chur ch or scientology services? 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 Gender Identity Not on file Sexual Orientation [...] 03/06/2022 3:40 PM CDT Plan of Treatment Not on file Goals Goal Patient Goal Type Associated Problems [...] as needed Medical Devices Implanted Type Area Product Safety Consultant Device Identifier Shelf Expiration Date Model / Serial / Lot Roh[employer] Simplex P Radiopaque Full Dose Cement Bone Sterile 6191-1-010 - S0 - [id number] Implanted:Qty: 2 on 03/06/2022 by Mary Alice Bermudez MD at [facility] Bone Cement Right: Knee [employer] 05/10/2024 6191-1-010 / 0 / [id number] [employer] Simplex P Radiopaque Full Dose Cement Bone Sterile 6191-1-010 - S0 - [id number] Implanted:Qty: 1 on 03/06/2022 by Mary Alice Bermudez MD at [facility] Bone Cement Right: Knee [employer] 03/10/2024 6191-1-010 / 0 / [id number] Roh[employer] Orth[employer] Simplex P Radiopaque Full Dose Cement Bone Sterile 6191-1-010 - S0 - [id number] Implanted:Qty: 1 on 03/06/2022 by Mary Alice Bermudez MD at [facility] Bone Cement Right: Knee [employer] 08/09/2023 6191-1-010 / 0 / [id number] [employer] Nexgen Rotate Hinge Stem Knee 5 Plate Tibial Zimaloy Pmma Uhmwpe [id number] - S0 - [id number] Implanted:Qty: 1 on 03/06/2022 by Mary Alice Bermudez MD at [facility] Other - see comments Right: Knee [employer] [id number] 1 08/08/2024 [id number] / 0 / [id number] [employer] Nexgen 15mm 30mm 75mm Rotate Hinge Knee Tibia Straight Extension [id number] - S0 - [id number] Implanted:Qty: 1 on 03/06/2022 by Mary Alice Bermudez MD at [facility] Other - see comments Right: Knee [employer] [id number] 1 01/23/2030 [id number] / 0 / [id number] [employer] Persona Central Cone Knee Medium Augment Tibial Trabecular Metal [id number] - S0 - [id number] Implanted:Qty: 1 on 03/06/2022 by Mary Alice Bermudez MD at [facility] Other - see comments Right: Knee [employer] [id number] 1 03/22/2030 [id number] / 0 / [id number] Elise [employer]hew[employer]Richco/O rtho Prep-Im Plug [place] Sponge Suction Hip Kit Thr Latex Free 252891 - S0 - [id number] Implanted:Qty: 1 on 03/06/2022 by Mary Alice Bermudez MD at [facility] Other - see comments Right: Knee [employer]Rich[employer]/O rtho 11/23/2031 [id number] / 0 / [id number] [employer]Rich[employer]/O rtho Carreno 25mm Plug Hip Femoral 16-21mm Restrictor Bone Cement Sterile 401021 - S0 - [id number] Implanted:Qty: 1 on 03/06/2022 by Mary Alice Bermudez MD at [facility] Other - see comments Right: Knee [employer]Rich[employer]/O rtho [id number] 08/20/2031 [id number] / 0 [id number] Joint Right: Knee Plates,Screws N/A: Cervica l-Thora cic Spine Description:C1-T2 Biocomposites Stimulan Rapid Cure Kit Paste Inspector Outside Production 10cc 20cc Bone Void 620-010 - [id number] Implanted:Qty: 1 on 11/10/2021 by Mary Alice Bermudez MD at [facility] Right: Knee [employer] 02/09/2024 620-010 / / [id number] Description:Implant pause pe rformed [employer] Palacos R High Viscosity Cement 40gm Bone Green 8171918 - [id number] Implanted:Qty: 1 on 11/10/2021 by Mary Alice Bermudez MD at [facility] Right: Knee [employer] 02/08/2026 [id number] / / [id number] Description:Implant pause pe rformed [employer] Palacos R High Viscosity Cement 40gm Bone Green 0889832 - [id number] Implanted:Qty: 1 on 11/10/2021 by Mary Alice Bermudez MD at [facility] Right: Knee [employer] 02/08/2026 [id number] / / [id number] Description:Implant pause pe rformed [employer] Palacos R High Viscosity Cement 40gm Bone Green 9468046 - [id number] Implanted:Qty: 1 on 11/10/2021 by Mary Alice Bermudez MD at [facility] Right: Knee [employer] 02/08/2026 [id number] / / [id number] Description:Implant pause pe rformed [employer] Inc [id number] Tibial Attune Cr Alpoly Sz 8 12mm - [id number] Implanted:Qty: 1 on 11/10/2021 by Mary Alice Bermudez MD at [facility] Right: Knee [employer] [id number] 08/08/2025 [id number] / / [id number] Description:Implant pause pe rformed [employer] Inc Attune Cemented Cruciate Retaining Knee Right 7 Component Femoral [id number] - [id number] Implanted:Qty: 1 on 11/10/2021 by Mary Alice Bermudez MD at [facility] Right: Knee [employer] [id number] 09/09/2031 [id number] / / [id number] Description:Implant pause pe rformed [employer] Palacos R High Viscosity Cement 40gm Bone Green 0493559 - [id number] Implanted:Qty: 1 on 11/28/2021 by Mary Alice Bermudez MD at [facility] Right: Knee [employer] 04/10/2024 [id number] / / [id number] [employer] Palacos R High Viscosity Cement 40gm Bone Green 4071642 - [id number] Implanted:Qty: 2 on 11/28/2021 by Mary Alice Bermudez MD at [facility] Right: Knee [employer] 02/08/2026 [id number] / / [id number] [employer] Nexgen [id number] Rotate Hinge Machine Mold Knee 5-6 F Insert [id number] - [id number] Implanted:Qty: 1 on 03/06/2022 by Mary Alice Bermudez MD at [facility] Right: Knee [employer] [id number] 1 08/23/2025 [id number] / / [id number] [employer] Nexgen 58w89ub Rotate Hinge Knee Right F Component Femoral [id number] - [id number] Implanted:Qty: 1 on 03/06/2022 by Mary Alice Bermudez MD at [facility] Right: Knee [employer] [id number] 11/14/2025 [id number] / / [id number] [employer] Nexgen Od20 Mm L100 Mm L145 Mm Rotate Hinge Knee; Tibia Straight [id number] - [id number] Implanted:Qty: 1 on 03/06/2022 by Mary Alice Bermudez MD at [facility] Right: Knee [employer] 07/11/2024 [id number] / / [employer] Nexgen 10mm Distal F Block Augmentation Precoat [id number] - [id number] Implanted:Qty: 1 on 03/06/2022 by Mary Alice Bermudez MD at [facility] Right: Knee [employer] [id number] 08/08/2025 [id number] / / [id number] [employer] Nexgen 5mm Posterior F Block Augmentation Precoat 10516816423 - [id number] Implanted:Qty: 1 on 03/06/2022 by Mary Alice Bermudez MD at [facility] Right: Knee [employer] [id number] 02/08/2029 [id number] / / [id number] [employer] Nexgen 15mm Rotate Hinge Knee Distal F Augment Femoral Tivanium 52440384865 - [id number] Implanted:Qty: 1 on 03/06/2022 by Mary Alice Bermudez MD at [facility] Right: Knee [employer] [id number] 08/09/2023 [id number] / / [id number] Explanted Type Area Product Safety Consultant Device Identifier Shelf Expiration Date Model / Serial / Lot Conmed Vahid Conmed 16mm Duraclip [id number] - [id number] Explanted:Qty: 1 on 09/16/2022 by Henrry Hancock MD at [facility] Clip N/A: Duodenum Conmed Vahid 08/18/2024 [id number] / / [id number] Description:Placed at [facility] Insurance Best Bid CHOICE PPO Best Bid CHOICE PPO MEDICARE SOLUTIONS [employer]ENCE ADVANTAGE CHOICE PPO Advance Directives For more information, please contact: [phone] * Full Code (Latest Code Status on [...] 4:44 PM 11/13/2021 11:42 PM Care Teams Accounting Advisory Services Manager Relationship Specialty Start Date End Date Hung Garcia MD [address] [facility] [address] [place] [address] PCP - General Family Medicine 04/14/20 [place] [address] [place] [address] Consulting Physician Gastroenterology 09/19/22
[2024-08-21 03:28] LABS: Calprotectin, Stool 85 mcg/g
== END 2024-08-14 10:33 | disposition home or self-care (01) ==
PROVIDERS: PCP Family Medicine; Visit Provider Nurse Practitioner Family
DX: R19.7 Diarrhea, unspecified (principal)
CPT/HCPCS: 82653; 83993; 87045; 87427; 87449

== ENCOUNTER 2024-11-07 00:46 | Day surgery (SDC) | payer OTHER, SELFPAY ==
[2024-10-30 14:27] VITALS: BMI 30.2
--- OUTSIDE RECORDS SUMMARY | 2024-11-07 00:49 | XMS_ITS | Clinical Summary ---
Author Organization [facility] [employer] Address [address] [facility] [place] [address] Care Team Providers Care Caravan Park And Camping Ground Manager Name Role Phone Hung Garcia MD Primary Care Provider [phone] Source Comments [facility],non-owned Affiliates and Associated Physician Practices is amultiple site organization consisting of ambulatory clinics and hospital sitesin [place], [place], [place]. This disclosure is being madepursuant to the Care Everywhere program and may not contain all information available regarding this patient. Last updated 18.[facility] [employer] Allergies Active Allergy Reactions Criticality Noted Date Comments Lactose GI Discomfort 04/10/2018 Medications * Be aware that medications may not be up to date on this document. Alwaysverify current medications with the patient. tamsulosin (FLOMAX) 0.4 MG capsule 4 7 Active losartan (COZAAR) 25 MG tablet Take 1 tablet by mouth once daily 4 8 Active amLODIPine (NORVASC) 10 MG tablet Take 1 tablet by mouth once daily 1 8 Active busPIRone (BUSPAR) 30 MG tablet Take 1 tablet by mouth once daily 2 8 Active hydroCHLOROthia zide (HYDRODIURIL) 25 MG tablet Take 25 mg by mouth once daily 2 8 Active desvenlafaxine SR 24hr (PRISTIQ) 100 MG tablet Take 1 tablet by mouth once daily 1 8 Active tretinoin (RETIN-A) 0.05 % creamIndication s:Comedonal acne Pea sized amount to open comedones nightly. 30 days supply. 20 g 11 8 Active clindamycin (CLEOCIN) 1 % pledget Apply to affected areas between toes twice daily. 30 day 60 Each 11 9 Active ciclopirox (LOPROX) 1 % shampooIndicati ons:Other seborrheic dermatitis USE ON SCALP AND FACE DAILY 360 mL 4 0 Active clindamycin (CLEOCIN) 1 % gelIndications: Erythrasma Apply in between toes daily. #90 day supply 90 g 1 0 Active tacrolimus (PROTOPIC) 0.1 % ointmentIndicat ions:Irritant contact dermatitis due to other agents Apply to hands two times daily. 90 days supply. 300 g 1 0 Active clobetasol (TEMOVATE) 0.05 % ointment Apply to hands twice daily PRN. 90 days supply. 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 Lentigines 04/10/2017 Hypertrophic scar 10/23/2016 Other seborrheic dermatitis 05/15/2016 Neoplasm of uncertain behavior of skin 6 Corns and callosities 02/27/2016 Splinter in skin 02/27/2016 Acne vulgaris 03/19/2015 Inflamed seborrheic keratosis 09/18/2014 Other seborrheic keratosis 03/13/2014 Erythrasma 03/13/2014 Actinic keratosis 03/13/2014 Immunizations Immunization Administration Dates Next Due INFLUENZA VACCINE 04/08/2019,04/30/2018 [...] at Not on file 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 Gender Identity Not on file Sexual Orientation Not on file Plan of Treatment Health Maintenance Due Date Last Done Comments COLOGUARD (AGES 45-75) - COL ON CA SCREENING [...] VACCINE (1 - 2023-2 5 season) 2024 DEPRESSION SCREENING 06/11/2024 INFLUENZA VACCINE (Season Ended) 2025 04/08/2019, 04/30/2018 Respiratory Syncytial Virus (RSV) Vaccine Pt: or [...] complete this topic MENINGOCOCCAL (Group B) VACCINE SHARED DECISION-MAKING Aged Out No longer eligible based on patient's age to complete this topic MENINGOCOCCAL GROUPS A/C/Y/W VACCINE Aged Out No longer eligible b ased on patient's age to complete this topic Insurance DIANA Care Teams Caravan Park And Camping Ground Manager Relationship Specialty Start Date End Date Hung Garcia MD [address] [place] [address] PCP - General 02/01/16
--- OUTSIDE RECORDS SUMMARY | 2024-11-07 00:49 | XMS_ITS | Clinical Summary ---
Author Organization [facility] Address [address] [place] [address] Care Team Providers Care Subpoena Server Name Role Phone Hung Garcia MD Primary [...] (01/25/2022): Added automatically from request for surgery [id number] Flap laceration of lower extremity 11/14/2021 Open wound of right knee, leg, and ankle 022 Overview (11/13/2021): Added automatically from request for surgery [id number] Assessment & Plan (11/14/2021 5:20 PM CDT): 66 year old man, s/p R knee arthroplasty at [facility] 09/30. Fell on R knee 10/17 [...] on cefepime/vancomycin from 11/10-, now transferred to [facility] for gastrocnemius flap+skin graft coverage of a persistent skin defect which was performed on 11/14/21. Recs: -Stop Vancomycin, no evidence of MRSA or other gram positive cocci component to infection noted. 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 -While on cefepime please get CBC/CMP [...] (11/09/2021): Added automatically from request for surgery [id number] Assessment & Plan (01/05/2022 12:31 PM CDT): [...] W/ IMPLANT 06/11/2020 - 06/10/2021 cervical spine CO ARTHRP KNE CONDYLE&PLATU MEDIAL&LAT COMPARTMENTS 09/14/2021 Right [...] week 09/18/2022 How often do you attend [facility] or gnosticist services? 1 to 4 times per year 09/18/2022 Do you belong to any clubs o r organizations such as quaker groups, unions, fraternal or athletic groups, or [...] place to sleep or slept in a assisted (including now)? No 12/05/2021 Personal Safety Answer Date Recorded Have you ever been in or are you currently in a harmful physical or emotional relationship or is someone making you feel afraid or unsafe? 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 Gender Identity Not on file Sexual Orientation [...] 05/03/2021, 09/17/2020, Additional history exists Influenza Vaccine (Season Ended) 2025 04/30/2023, 05/14/2021, 04/21/2020, Additional history exists Goals Goal [...] as needed Medical Devices Implanted Type Area Electro Tech Device Identifier Shelf Expiration Date Model / Serial / Lot [employer] Simplex P Radiopaque Full Dose Cement Bone Sterile 6191-1-010 - S0 - [id number] Implanted:Qty: 2 on 03/06/2022 by Mary Alice Bermudez MD at [facility] Bone Cement Right: Knee [employer] 05/10/2024 6191-1-010 / 0 / [id number] [employer] Simplex P Radiopaque Full Dose Cement Bone Sterile 6191-1- - S0 - [id number] Implanted:Qty: 1 on 03/06/2022 by Mary Alice Bermudez MD at [facility] Bone Cement Right: Knee [employer] 03/10/2024 6191-1-010 / 0 / [id number] [employer] Simplex P Radiopaque Full Dose Cement Bone Sterile 6191-1-010 - S0 - [id number] Implanted:Qty: 1 on 03/06/2022 by Mary Alice Bermudez MD at [facility] Bone Cement Right: Knee [employer] 08/09/2023 6191-1-010 / 0 / [id number] [employer] Nexgen Rotate Hinge Stem Knee 5 Plate Tibial Zimaloy Pmma Uhmwpe 94059311241 - S0 - [id number] Implanted:Qty: 1 on 03/06/2022 by Mary Alice Bermudez MD at [facility] Other - see comments Right: Knee [employer] [id number] 1 08/08/2024 [id number] / 0 / [id number] [employer] Nexgen 15mm 30mm 75mm Rotate Hinge Knee Tibia Straight Extension 66185134091 - S0 - [id number] Implanted:Qty: 1 on 03/06/2022 by Mary Alice Bermudez MD at [facility] Other - see comments Right: Knee [employer] [id number] 1 01/23/2030 09013187102 / 0 / [id number] [employer] Persona Central Cone Knee Medium Augment Tibial Trabecular Metal 24069023867 - S0 - [id number] Implanted:Qty: 1 on 03/06/2022 by Mary Alice Bermudez MD at [facility] Other - see comments Right: Knee [employer] [id number] 1 03/22/2030 [id number] / 0 / [id number] [employer]/O rtho Prep-Im Plug Mason Sponge Suction Hip Kit Thr Latex Free 015427 - S0 - [id number] Implanted:Qty: 1 on 03/06/2022 by Mary Alice Bermudez MD at [facility] Other - see comments Right: Knee [employer]/O rtho 11/23/2031 257515 / 0 / [id number] [employer]/O rtho Carreno 25mm Plug Hip Femoral 16-21mm Restrictor Bone Cement Sterile 663802 - S0 - [id number] Implanted:Qty: 1 on 03/06/2022 by Mary Alice Bermudez MD at [facility] Other - see comments Right: Knee [employer]/O rtho [id number] 08/20/2031 034459 / 0 [id number] Joint Right: Knee Plates,Screws N/A: Cervica l-Thora cic Spine Description:C1-T2 Biocomposites Stimulan Rapid Cure Kit Paste Parer 10cc 20cc Bone Void 620-010 - [id number] Implanted:Qty: 1 on 11/10/2021 by Mary Alice Bermudez MD at [facility] Right: Knee [employer] 02/09/2024 620-010 / / [id number] Description:Implant pause pe rformed [employer] Palacos R High Viscosity Cement 40gm Bone Green 0323288 - [id number] Implanted:Qty: 1 on 11/10/2021 by Mary Alice Bermudez MD at [facility] Right: Knee [employer] 02/08/2026 8700016 / / [id number] Description:Implant pause pe rformed [employer] Palacos R High Viscosity Cement 40gm Bone Green 9971488 - [id number] Implanted:Qty: 1 on 11/10/2021 by Mary Alice Bermudez MD at [facility] Right: Knee [employer] 02/08/2026 1621198 / / [id number] Description:Implant pause pe rformed [employer] Palacos R High Viscosity Cement 40gm Bone Green 9992004 - [id number] Implanted:Qty: 1 on 11/10/2021 by Mary Alice Bermudez MD at [facility] Right: Knee [employer] 02/08/2026 3566352 / / [id number] Description:Implant pause pe rformed [employer] 805396000 Tibial Attune Cr Alpoly Sz 8 12mm - [id number] Implanted:Qty: 1 on 11/10/2021 by Mary Alice Bermudez MD at [facility] Right: Knee [employer] [id number] 08/08/2025 [id number] / / [id number] Description:Implant pause pe rformed [employer] Inc Attune Cemented Cruciate Retaining Knee Right 7 Component Femoral 789696262 - [id number] Implanted:Qty: 1 on 11/10/2021 by Mary Alice Bermudez MD at [facility] Right: Knee [employer] [id number] 09/09/2031 [id number] / / [id number] Description:Implant pause pe rformed [employer] Palacos R High Viscosity Cement 40gm Bone Green 9992470 - [id number] Implanted:Qty: 1 on 11/28/2021 by Mary Alice Bermudez MD at [facility] Right: Knee [employer] 04/10/2024 [id number] / / [id number] [employer] Palacos R High Viscosity Cement 40gm Bone Green 5451250 - [id number] Implanted:Qty: 2 on 11/28/2021 by Mary Alice Bermudez MD at [facility] Right: Knee [employer] 02/08/2026 [id number] / / [id number] [employer] Nexgen [id number] Rotate Hinge Machine Mold Knee 5-6 F Insert [id number] - [id number] Implanted:Qty: 1 on 03/06/2022 by Mary Alice Bermudez MD at [facility] Right: Knee [employer] [id number] 1 08/23/2025 [id number] / / [id number] [employer] Nexgen 70j33su Rotate Hinge Knee Right F Component Femoral 92441559357 - [id number] Implanted:Qty: 1 on 03/06/2022 by Mary Alice Bermudez MD at [facility] Right: Knee [employer] [id number] 11/14/2025 [id number] / / [id number] [employer] Nexgen Od20 Mm L100 Mm L145 Mm Rotate Hinge Knee; Tibia Straight 68930322415 - [id number] Implanted:Qty: 1 on 03/06/2022 by Mary Alice Bermudez MD at [facility] Right: Knee [employer] 07/11/2024 [id number] / / [employer] Nexgen 10mm Distal F Block Augmentation Precoat 51201501347 - [id number] Implanted:Qty: 1 on 03/06/2022 by Mary Alice Bermudez MD at [facility] Right: Knee [employer] [id number] 08/08/2025 [id number] / / [id number] [employer] Nexgen 5mm Posterior F Block Augmentation Precoat 29563694969 - [id number] Implanted:Qty: 1 on 03/06/2022 by Mary Alice Bermudez MD at [facility] Right: Knee [employer] [id number] 02/08/2029 [id number] / / [id number] [employer] Nexgen 15mm Rotate Hinge Knee Distal F Augment Femoral Tivanium 70485744975 - [id number] Implanted:Qty: 1 on 03/06/2022 by Mary Alice Bermudez MD at [facility] Right: Knee [employer] [id number] 1 08/09/2023 [id number] / / [id number] Explanted Type Area Electro Tech Device Identifier Shelf Expiration Date Model / Serial / Lot Conmed Vahid Conmed 16mm Duraclip [id number] - [id number] Explanted:Qty: 1 on 09/16/2022 by Henrry Hancock MD at [facility] Clip N/A: Duodenum Conmed Vahid 08/18/2024 [id number] W / / [id number] Description:Placed at [facility] Insurance ADVANTAGE CHOICE PPO ADVANTAGE CHOICE PPO MEDICARE ADVANTAGE [employer] ADVANTAGE CHOICE PPO Advance Directives For more information, please contact: [phone] * Full Code (Latest Code Status on [...] 4:44 PM 11/13/2021 11:42 PM Care Teams Subpoena Server Relationship Specialty Start Date End Date Hung Garcia MD [address] [facility] [address] [place] [address] PCP - General Family Medicine 04/14/20 [place] [address] [place] [address] Consulting Physician Gastroenterology 09/19/22
--- OUTSIDE RECORDS SUMMARY | 2024-11-07 00:49 | XMS_ITS | Referral Summary ---
Author Organization [facility] Address [address] [place] [address] Care Team Providers Care Solder Leveler Printed Circuit Boards Name Role Phone Hung Garcia MD Primary [...] (01/25/2022): Added automatically from request for surgery [id number] Flap laceration of lower extremity 11/14/2021 Open wound of right knee, leg, and ankle 022 Overview (11/13/2021): Added automatically from request for surgery [id number] Assessment & Plan (11/14/2021 5:20 PM CDT): 66 year old man, s/p R knee arthroplasty at [facility] 09/30. Fell on R knee [...] on cefepime/vancomycin from 11/10-, now transferred to [facility] for gastrocnemius flap+skin graft coverage of a persistent skin defect which was performed on 11/14/21. Recs: -Stop Vancomycin, no evidence of MRSA or other gram positive cocci component to infection noted. -Continue cefepime, can reduce to 2g IV q12h for terminal operations manager therapy. -While on cefepime please get [...] (11/09/2021): Added automatically from request for surgery [id number] Assessment & Plan (01/05/2022 12:31 PM CDT): [...] often do you attend chur ch or islam services? 1 to 4 times per year 09/18/2022 Do you belong to any clubs o r organizations such as hoahaoism groups, unions, fraternal or athletic groups, or [...] place to sleep or slept in a skilled nursing (including now)? No 12/05/2021 Personal Safety Answer Date Recorded Have you ever been in or are you currently in a harmful physical or emotional relationship or is someone making you feel afraid or unsafe? Denies 09/15/2022 Sex and Gender Information Value Date Recorded Sex Assigned at Not on file Legal Sex Male 3:32 PM WEB ARCHITECT Gender Identity Not on file Sexual Orientation [...] as needed Medical Devices Implanted Type Area Upholstery Covers Inspector Device Identifier Shelf Expiration Date Model / Serial / Lot [facility] [employer] Simplex P Radiopaque Full Dose Cement Bone Sterile 6191-1-010 - S0 - [id number] Implanted:Qty: 2 on 03/06/2022 by Mary Alice Bermudez MD at [facility] Bone Cement Right: Knee [employer] 05/10/2024 6191-1-010 / 0 / [id number] [employer] Simplex P Radiopaque Full Dose Cement Bone Sterile 6191-1-010 - S0 - [id number] Implanted:Qty: 1 on 03/06/2022 by Mary Alice Bermudez MD at [facility] Bone Cement Right: Knee [employer] 03/10/2024 6191-1-010 / 0 / [id number] [employer] Simplex P Radiopaque Full Dose Cement Bone Sterile 6191-1-010 - S0 - [id number] Implanted:Qty: 1 on 03/06/2022 by Mary Alice Bermudez MD at [facility] Bone Cement Right: Knee [employer] 08/09/2023 6191-1-010 / 0 / [id number] [employer] Nexgen Rotate Hinge Stem Knee 5 Plate Tibial Zimaloy Pmma Uhmwpe [id number] - S0 - [id number] Implanted:Qty: 1 on 03/06/2022 by Mary Alice Bermudez MD at [facility] Other - see comments Right: Knee [employer] [id number] 1 08/08/2024 [id number] / 0 / [id number] [employer] Nexgen 15mm 30mm 75mm Rotate Hinge Knee Tibia Straight Extension [id number] - S0 - [id number] Implanted:Qty: 1 on 03/06/2022 by Mary Alice Bermudez MD at [facility] Other - see comments Right: Knee [employer] [id number] 1 01/23/2030 [id number] / 0 / [id number] [employer] Persona [facility] Knee Medium Augment Tibial Trabecular Metal [id number] - S0 - [id number] Implanted:Qty: 1 on 03/06/2022 by Mary Alice Bermudez MD at [facility] Other - see comments Right: Knee [employer] [id number] 1 03/22/2030 [id number] / 0 / [id number] [employer]hew[employer]/O rtho Prep-Im Plug [place] Sponge Suction Hip Kit Thr Latex Free 273799 - S0 - [id number] Implanted:Qty: 1 on 03/06/2022 by Mary Alice Bermudez MD at [facility] Other - see comments Right: Knee [employer] rtho 11/23/2031 [id number] / 0 / [id number] [employer]/O rtho Carreno 25mm Plug Hip Femoral 16-21mm Restrictor Bone Cement Sterile 678437 - S0 - [id number] Implanted:Qty: 1 on 03/06/2022 by Mary Alice Bermudez MD at [facility] Other - see comments Right: Knee [employer]/O rtho [id number] 08/20/2031 [id number] / 0 [id number] Joint Right: Knee Plates,Screws N/A: Cervica l-Thora cic Spine Description:C1-T2 Biocomposites Stimulan Rapid Cure Kit Paste Broiler Chef Or Cook 10cc 20cc Bone Void 620-010 - [id number] Implanted:Qty: 1 on 11/10/2021 by Mary Alice Bermudez MD at [facility] Right: Knee [employer] 02/09/2024 620-010 / / [id number] Description:Implant pause pe rformed [employer] Palacos R High Viscosity Cement 40gm Bone Green 5592601 - [id number] Implanted:Qty: 1 on 11/10/2021 by Mary Alice Bermudez MD at [facility] Right: Knee [employer] 02/08/2026 3170937 / / [id number] Description:Implant pause pe rformed [employer] Palacos R High Viscosity Cement 40gm Bone Green 4862462 - [id number] Implanted:Qty: 1 on 11/10/2021 by Mary Alice Bermudez MD at [facility] Right: Knee [employer] 02/08/2026 [id number] / / [id number] Description:Implant pause pe rformed [employer] Palacos R High Viscosity Cement 40gm Bone Green 1866858 - [id number] Implanted:Qty: 1 on 11/10/2021 by Mary Alice Bermudez MD at [facility] Right: Knee [employer] 02/08/2026 2583741 / / [id number] Description:Implant pause pe rformed [employer] [id number] Tibial Attune Cr Alpoly Sz 8 12mm - [id number] Implanted:Qty: 1 on 11/10/2021 by Mary Alice Bermudez MD at [facility] Right: Knee [employer] [id number] 08/08/2025 [id number] / / [id number] Description:Implant pause pe rformed [employer] Inc Attune Cemented Cruciate Retaining Knee Right 7 Component Femoral [id number] - [id number] Implanted:Qty: 1 on 11/10/2021 by Mary Alice Bermudez MD at [facility] Right: Knee [employer] [id number] 09/09/2031 [id number] / / [id number] Description:Implant pause pe rformed [employer] Palacos R High Viscosity Cement 40gm Bone Green 5684862 - [id number] Implanted:Qty: 1 on 11/28/2021 by Mary Alice Bermudez MD at [facility] Right: Knee [employer] 04/10/2024 [id number] / / [id number] [employer] Palacos R High Viscosity Cement 40gm Bone Green 0612249 - [id number] Implanted:Qty: 2 on 11/28/2021 by Mary Alice Bermudez MD at [facility] Right: Knee [employer] 02/08/2026 [id number] / / [id number] [employer] Nexgen [id number] Rotate Hinge Machine Mold Knee 5-6 F Insert [id number] - [id number] Implanted:Qty: 1 on 03/06/2022 by Mary Alice Bermudez MD at [facility] Right: Knee [employer] [id number] 1 08/23/2025 [id number] / / [id number] [employer] Nexgen 56s21lj Rotate Hinge Knee Right F Component Femoral [id number] - [id number] Implanted:Qty: 1 on 03/06/2022 by Mary Alice Bermudez MD at [facility] Right: Knee [employer] [id number] 11/14/2025 [id number] / / [id number] [employer] Nexgen Od20 Mm L100 Mm L145 Mm Rotate Hinge Knee; Tibia Straight [id number] - [id number] Implanted:Qty: 1 on 03/06/2022 by Mary Alice Bermudez MD at [facility] Right: Knee [employer] 07/11/2024 [id number] / / [employer] Nexgen 10mm Distal F Block Augmentation Precoat [id number] - [id number] Implanted:Qty: 1 on 03/06/2022 by Mary Alice Bermudez MD at [facility] Right: Knee [employer] [id number] 08/08/2025 [id number] / / [id number] [employer] Nexgen 5mm Posterior F Block Augmentation Precoat [id number] - [id number] Implanted:Qty: 1 on 03/06/2022 by Mary Alice Bermudez MD at [facility] Right: Knee [employer] [id number] 02/08/2029 [id number] / / [id number] [employer] Nexgen 15mm Rotate Hinge Knee Distal F Augment Femoral Tivanium 69896661469 - [id number] Implanted:Qty: 1 on 03/06/2022 by Mary Alice Bermudez MD at [facility] Right: Knee [employer] [id number] 1 08/09/2023 [id number] / / [id number] Explanted Type Area Upholstery Covers Inspector Device Identifier Shelf Expiration Date Model / Serial / Lot Conmed Vahid Conmed 16mm Duraclip [id number] - [id number] Explanted:Qty: 1 on 09/16/2022 by Henrry Hancock MD at [facility] Clip N/A: Duodenum Conmed Vahid 08/18/2024 [id number] / / [id number] Description:[facility] [facility] [place] Insurance [employer] CHOICE PPO [employer] CHOICE PPO [id number] MEDICARE ADVANTAGE [facility] ADVANTAGE CHOICE PPO Advance Directives For more information, please contact: [phone] * Full Code (Latest Code Status on [...] 4:44 PM 11/13/2021 11:42 PM Care Teams Solder Leveler Printed Circuit Boards Relationship Specialty Start Date End Date Hung Garcia MD [address] [place] [address] PCP - General Family Medicine 04/14/20 [place] [address] [place] [address] Consulting Physician Gastroenterology 09/19/22
--- OUTSIDE RECORDS SUMMARY | 2024-11-07 00:49 | XMS_ITS | Encounter Summary ---
Author Organization [facility] Address [address] [place] [address] Care Team Providers Care Application Support Manager Name Role Phone Hung Garcia MD Primary Care Provider [phone] Reason for Visit * Reason Onset Date Comments CONSULT TO HOSPITALIST 08/02/[address] ON [address] FRANK [facility] MAIL Encounter Details Date Type Department Care Team (Late st Contact Info) Description 08/02/2020 Telephone [facility] Admitting [address] [place] [address] [place] [address] [address] CONSULT TO HOSPITALIST (LEFT MESSAGE [...] file 08/02/2020 How often do you attend [facility] or religion services? 1 to 4 times per year 08/02/2020 Do you belong to any clubs o r organizations such as confucianist groups, unions, fraternal or athletic groups, or [...] on file Legal Sex Male 4:19 PM ENVIRONMENTAL SAMPLER Gender Identity Not on file Sexual Orientation Not on file COVID-19 Exposure Response Date Recorded In the last month, have you been in contact with someone who was confirmed or suspected to have Coronavirus / COVID-19? No / Unsure 08/02/2020 7:03 AM ENVIRONMENTAL SAMPLER documented as of this encounter Plan of Treatment Not on file documented as of this encounter Visit Diagnoses Not on filedocumented in this encounter Care Teams Application Support Manager Relationship Specialty Start Date End Date Hung Garcia MD [address] [facility] [address] [facility] [address] [place] [address] PCP - General Family Practice 06/15/20 documented as of this encounter
--- OUTSIDE RECORDS SUMMARY | 2024-11-07 00:49 | XMS_ITS | Clinical Summary ---
Author Organization [id number] Address [address] [place] [address] Care Team Providers Care Telephone Exchange Operator Name Role Phone Hung Garcia MD Primary Care Provider [phone] Allergies Active Allergy Reactions Criticality Noted Date [...] often do you attend chur ch or taoism services? 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 REMOVAL OPERATOR Gender Identity Not on file Sexual Orientation Not on file Last Filed Vital Signs Vital Sign Reading Time Taken Comments Blood Pressure 133/87 08/04/2020 3:54 PM GRIT REMOVAL OPERATOR Pulse 76 08/04/2020 3:54 PM GRIT REMOVAL OPERATOR Temperature 36.8 C (98.3 F) 08/04/2020 3:54 PM GRIT REMOVAL OPERATOR Respiratory Rate 16 08/04/2020 3:54 PM GRIT REMOVAL OPERATOR Oxygen Saturation 98% 08/04/2020 3:54 PM GRIT REMOVAL OPERATOR Inhaled Oxygen Concentration - - Weight 94.8 [...] series) 2029 Medical Devices Implanted Type Area Pesticide Applicator Device Identifier Shelf Expiration Date Model / Serial / Lot Filler Bone Stimulan Paste 5cc W/Beads 620-005 - Sna Implanted:Qty: 1 on 08/02/2020 by Mario Matson MD at [facility] Biological N/A: Spine Cervical Posterior [employer] 02/08/2023 620-005 / NA / [id number] Description:mixed with 500mg vancomycin GAVINO REQ#[id number] Attila Std 3.9t193ov 1609007 - Sna Implanted:Qty: 2 on 08/02/2020 by Mario Matson MD at [facility] Attila N/A: Spine Cervical Posterior [employer] SOFAMOR DANEK [id number] / NA / NA Description:load # [id number] date 07/28/2020 GAVINO REQ#[id number] Screw 2.5x26mm [id number] - Sna Implanted:Qty: 1 on 08/02/2020 by Mario Matson MD at [facility] Screw N/A: Spine Cervical Posterior [employer]K [id number] / NA / NA Description:load #[id number] date 07/28/2020 Screw Infinity Multi-Ax 4.0x26mm 7985301 - Sna Implanted:Qty: 1 on 08/02/2020 by Mario Matson MD at [facility] Screw N/A: Spine Cervical Posterior [employer] [id number] / NA / NA Description:load # [id number] date 07/28/2020 Screw Infinity 4.0x32mm Ma Occipitocerv [id number] - Sna Implanted:Qty: 1 on 08/02/2020 by Mario Matson MD at [facility] Screw N/A: Spine Cervical Posterior [employer] 5162813 / NA / NA Description:load # [id number] date 07/24/2020 Screw Set Persona Std [id number] - Sna Implanted:Qty: 13 on 08/02/2020 by Mario Matson MD at [facility] Screw N/A: Spine Cervical Posterior [employer] 6802908 / NA / NA Description:load # [id number] date 07/28/2020 Screw Infinity 3.5x20mm Ma Occipitocerv [id number] - Sna Implanted:Qty: 1 on 08/02/2020 by Mario Matson MD at [facility] Screw N/A: Spine Cervical Posterior [employer] 1368580 / NA / NA Description:load # [id number] date 07/28/2020 Screw Infinity 3.5x24mm Ma Occipitocerv [id number] - Sna Implanted:Qty: 1 on 08/02/2020 by Mario Matson MD at [facility] Screw N/A: Spine Cervical Posterior [employer] 4948582 / NA / NA Description:load # [id number] date 07/28/2020 Screw Infinity Multi-Ax 3.5x18mm [id number] - Sna Implanted:Qty: 3 on 08/02/2020 by Mario Matson MD at [facility] Screw N/A: Spine Cervical Posterior [employer] [id number] / NA / NA Description:load # [id number] date 07/28/2020 Screw Spinal Multi Surya 3.5x16mm [id number] - Sna Implanted:Qty: 3 on 08/02/2020 by Mario Matson MD at [facility] Screw N/A: Spine Cervical Posterior [employer] [id number] / NA / NA Description:load # [id number] date 07/28/2020 Screw Spinal Multi Surya 3.5x14mm 8342844 - Sna Implanted:Qty: 1 on 08/02/2020 by Mario Matson MD at [facility] Screw N/A: Spine Cervical Posterior [employer] 9673555 / NA / NA Description:load #[id number] date 07/28/2020 Screw Infinity 4.0x30mm Ma Occipitocerv [id number] Implanted:Qty: 1 on 08/02/2020 by Mario Matson MD at [facility] Spine N/A: Spine Cervical Posterior [employer] 8467071 / [id number] Description:ENTERED BY RN [id number] 1X ADD Explanted Type Area Pesticide Applicator Device Identifier Shelf Expiration Date Model / Serial / Lot Hemostatic Surgiflo 8ml W/Thrombin 2994 - [id number] Explanted:Qty : 1 on 08/02/2020 by Mario Matson MD at [facility] Hemostatic N/A: Spine Cervical Posterior [employer] [id number] 11/08/2021 2994 / / [id number] Hemostatic Surgiflo 8ml W/Thrombin 2994 - [id number] Explanted:Qty : 1 on 08/02/2020 by Mraio Matson MD at [facility] Hemostatic N/A: Spine Cervical Posterior [employer] [id number] 11/08/2021 2994 / / [id number] Hemostatic Surgifoam Sz100 [id number] - Explanted:Qty : 1 on 08/02/2020 by Mario Matson MD at [facility] Hemostatic N/A: Spine Cervical Posterior [employer] [id number] 02/19/2024 1975 / NA / [id number] Insurance MEDICARE PART A HOSPITAL ONLY BCBS BLUE ACCESS CHOICE RX [facility] [employer] Advance Directives For more information, please contact: [phone] * Full Code (Latest Code Status on File) Date Activated Date Inactivated Comments 08/02/2020 5:48 PM 08/04/2020 6:15 PM Care Teams Telephone Exchange Operator Relationship Specialty Start Date End Date Hung Garcia MD [address] [facility] [address] [place] [address] PCP - General Family Practice 06/15/20
[2024-11-07 11:50] VITALS: BP 156/88; PULSE 74; RESP 19; TEMP 36.2; O2SAT 96; BMI 30.7
[2024-11-07] MEDS: LACTATED RINGERS 1,000 ML 150 ML IV CONT (12:03)
--- NOTE | 2024-11-07 12:35 | P.PNAN_ITS ---
Anes - Initial Pre Proc Eval Procedure: Operation Date: 11/07/24 12:30 Proposed Procedures p Esophagogastroduodenoscopy & Colonoscopy - Avery Garcia MD Date/Time: 11/07/24 12:35 Surgeon: Avery Garcia MD Pre Op Diagnosis: GERD, Duodenal ulcer Patient Data Age: 69 Gender: M Height: 1.83 m Weight: 102.7 kg Last Vital Signs Temp 97.2 F L 11/07/24 11:50 Pulse 74 11/07/24 11:50 Resp 19 11/07/24 11:50 BP 156/88 H 11/07/24 11:50 Pulse Ox 96 11/07/24 11:50 O2 Del Method Room Air 11/07/24 11:50 Allergies Allergy/AdvReac Type Severity Reaction Status Date / Time No Known Allergies Allergy Verified 11/07/24 11:48 Home Medications ?Medication ?Instructions ?Recorded ?Confirmed ?Type fenofibrate 160 mg tablet See Rx Instructions .Route 11/23/23 10/31/24 Rx .COMPLEX #90 tabs tadalafil 20 mg tablet (Cialis) 20 mg PO DAILY PRN sexual activity 12/05/23 10/31/24 Rx #30 tabs tacrolimus 0.1 % topical ointment 1 applic topical BID PRN Skin 02/22/24 10/31/24 Rx Irritation #30 grams desvenlafaxine succinate 100 mg 100 mg PO QAM #90 tabs 02/25/24 10/31/24 Rx tablet,extended release 24 hr amlodipine 10 mg tablet See Rx Instructions .Route 06/19/24 11/07/24 Rx .COMPLEX #90 tabs buspirone 15 mg tablet 15 mg PO TID #270 tabs 07/28/24 10/31/24 Rx hydrochlorothiazide 25 mg tablet 25 mg PO QAM #90 tabs 07/31/24 10/31/24 Rx omeprazole 40 mg capsule,delayed 40 mg PO DAILY #90 caps 08/25/24 10/31/24 Rx release cyclobenzaprine 10 mg tablet See Rx Instructions .Route 09/23/24 10/31/24 Rx .COMPLEX #90 tabs ciclopirox 1 % shampoo See Rx Instructions .Route 09/29/24 10/31/24 Rx .COMPLEX #360 mL zolpidem 5 mg tablet (Ambien) 5 mg PO QHS #30 tabs 10/17/24 10/31/24 Rx losartan 100 mg tablet 100 mg PO QAM #90 tabs 10/27/24 10/31/24 Rx oxycodone 20 mg tablet 20 mg PO TID PRN pain #90 tabs 10/28/24 10/31/24 Rx clindamycin phosphate 1 % topical 1 applic topical BID PRN infections 10/31/24 10/31/24 History swab tamsulosin 0.4 mg capsule 0.4 mg PO BID 10/31/24 10/31/24 History Patient hx anesthesia problems: none Family hx anesthesia problems: none Results Review: All pre-operative results and documents have been reviewed as part of the pre- operative evaluation. [facility] Past Medical History Medical History Paroxysmal A-fib s/p surgery Chronic narcotic use Obesity Knee joint effusion Right knee DJD Tobacco dependence Cervical spinal stenosis Right knee pain Degenerative joint disease of knee HLD (hyperlipidemia) HTN (hypertension) Injury of right knee Surgical History Surgical History S/P total knee arthroplasty S/P rotator cuff repair bilateral History of tonsillectomy History of laminectomy Family History Family History Father Cerebrovascular accident Sibling Malignant neoplasm of prostate Mother Family history of lung cancer Social History Social History Social History: Smoking packs per day: 0.5 Smoking cigarettes per day: 10.0 Years smoked: 20 Smoking pack-years: 10.00 Smoking status: Former smoker Tobacco type: cigarettes Second hand tobacco smoke exposure: Yes Alcohol intake: current Drinks per week: 3 Alcohol use details: Social Substance use: current Substance use type: opiates Other substance usage details: Oxycodone Do You Feel Safe in your Home?: Yes Lack of Transportation: No Lack of Food: Never True Current Housing: I Have Housing Concerned About Future Housing: No Difficulty Paying Gas/Electric Bills: No Difficulty Paying for Meds: No Currently Unemployed: YES Education: Don't Know Difficulty w/ Childcare or Family Care: No Living arrangements: with family Additional living arrangements comments: Occupation/Education: retired Gender identity (if verbalized by the patient): Male Sexual Orientation (if Verbalized by the Patient): Straight or Heterosexual Spiritual care concerns: No Anes - Eval Final PreProcedure Day of Procedure 11/07/24 12:35 Patient weight: obese Lungs: normal air movement Airway: Mallampati scale class II Neurological: alert and oriented Last oral intake: >/= 8 hours ASA classification: III Emergent: no Anesthetic plan: proceed Anesthesia type and monitoring: general GIVS and standard monitoring Results Review: All pre-operative results and documents have been reviewed as part of the pre- operative evaluation. HTN, hyperlipidemia, p afib, ex smoker quit 2023, hx of pafib after knee sx (had periop wound infection). Informed Consent: The patient's anesthetic plan and its attendant risks and benefits were discussed with the patient/family/POA. Questions were solicited and answers provided to the satisfaction of the patient/family/POA.
--- NOTE | 2024-11-07 12:48 | PM.IMHP ---
H&P: HPI History of Present Illness Date/Time: 11/07/24 12:48 Chief Complaint: GERD-chronic diarrhea Narrative: the patient has been complaining of persistent diarrhea for the past 2 years. In addition, he was treated for an esophageal ulcer presumably originating in severe GERD 2 years ago. His GERD is now controlled with omeprazole which she takes every day. he is here for EGD and colonoscopy Review of Systems Review of Systems: All systems reviewed & are unremarkable except as noted in HPI and below PMFSH Past Medical History Medical History Paroxysmal A-fib s/p surgery Chronic narcotic use Obesity Knee joint effusion Right knee DJD Tobacco dependence Cervical spinal stenosis Right knee pain Degenerative joint disease of knee HLD (hyperlipidemia) HTN (hypertension) Injury of right knee Surgical History Surgical History S/P total knee arthroplasty S/P rotator cuff repair bilateral History of tonsillectomy History of laminectomy Family History Family History Father Cerebrovascular accident Sibling Malignant neoplasm of prostate Mother Family history of lung cancer Social History Social History Social History: Smoking packs per day: 0.5 Smoking cigarettes per day: 10.0 Years smoked: 20 Smoking pack-years: 10.00 Smoking status: Former smoker Tobacco type: cigarettes Second hand tobacco smoke exposure: Yes Alcohol intake: current Drinks per week: 3 Alcohol use details: Social Substance use: current Substance use type: opiates Other substance usage details: Oxycodone Do You Feel Safe in your Home?: Yes Lack of Transportation: No Lack of Food: Never True Current Housing: I Have Housing Concerned About Future Housing: No Difficulty Paying Gas/Electric Bills: No Difficulty Paying for Meds: No Currently Unemployed: YES Education: Don't Know Difficulty w/ Childcare or Family Care: No Living arrangements: with family Additional living arrangements comments: Occupation/Education: retired Gender identity (if verbalized by the patient): Male Sexual Orientation (if Verbalized by the Patient): Straight or Heterosexual Spiritual care concerns: No Meds Home Medications and Allergies Home Medications ?Medication ?Instructions ?Recorded ?Confirmed ?Type fenofibrate 160 mg tablet See Rx Instructions .Route 11/23/23 10/31/24 Rx .COMPLEX #90 tabs tadalafil 20 mg tablet (Cialis) 20 mg PO DAILY PRN sexual activity 12/05/23 10/31/24 Rx #30 tabs tacrolimus 0.1 % topical ointment 1 applic topical BID PRN Skin 02/22/24 10/31/24 Rx Irritation #30 grams desvenlafaxine succinate 100 mg 100 mg PO QAM #90 tabs 02/25/24 10/31/24 Rx tablet,extended release 24 hr amlodipine 10 mg tablet See Rx Instructions .Route 06/19/24 11/07/24 Rx .COMPLEX #90 tabs buspirone 15 mg tablet 15 mg PO TID #270 tabs 07/28/24 10/31/24 Rx hydrochlorothiazide 25 mg tablet 25 mg PO QAM #90 tabs 07/31/24 10/31/24 Rx omeprazole 40 mg capsule,delayed 40 mg PO DAILY #90 caps 08/25/24 10/31/24 Rx release cyclobenzaprine 10 mg tablet See Rx Instructions .Route 09/23/24 10/31/24 Rx .COMPLEX #90 tabs ciclopirox 1 % shampoo See Rx Instructions .Route 09/29/24 10/31/24 Rx .COMPLEX #360 mL zolpidem 5 mg tablet (Ambien) 5 mg PO QHS #30 tabs 10/17/24 10/31/24 Rx losartan 100 mg tablet 100 mg PO QAM #90 tabs 10/27/24 10/31/24 Rx oxycodone 20 mg tablet 20 mg PO TID PRN pain #90 tabs 10/28/24 10/31/24 Rx clindamycin phosphate 1 % topical 1 applic topical BID PRN infections 10/31/24 10/31/24 History swab tamsulosin 0.4 mg capsule 0.4 mg PO BID 10/31/24 10/31/24 History Allergies Allergy/AdvReac Type Severity Reaction Status Date / Time No Known Allergies Allergy Verified 11/07/24 11:48 Vital Signs Vital Signs - 24 hr 11/07/24 11:50 Temperature 97.2 F L Pulse Rate 74 Respiratory Rate 19 Blood Pressure 156/88 H Pulse Oximetry 96 Oxygen Delivery Room Air Exam Const: General: cooperative and healthy appearing Resp: Effort & Inspection: normal respiratory effort and able to speak in complete sentences Auscultation: clear to auscultation bilaterally Cardio: Rate: regular rate Rhythm: regular rhythm GI: Inspection: normal to inspection GI Palp: No No hepatosplenomegaly present Auscultation: normal bowel sounds Rectal Exam: deferred Skin: General skin exam: normal color Psych: Appearance: grossly normal Mental Status: mental status grossly normal Assessment and Plan Assessment and plan (1) Diarrhea: Qualifiers: Diarrhea type: due to malabsorption Qualified Code(s): K90.9 - Intestinal malabsorption, unspecified; R19.7 - Diarrhea, unspecified Code(s): R19.7 - Diarrhea, unspecified Status: Acute Assessment and Plan: The patient is deemed a good candidate for the procedure. Consent signed. Will proceed.
[2024-11-07] MEDS: BENZOCAINE (*SP) 60 ML SPRAY CAN (HURRICAINE) 1 SPRAY MUCOUS MEM (12:50)
--- NOTE | 2024-11-07 12:50 | PM.IMHP ---
H&P: HPI History of Present Illness Date/Time: 11/07/24 12:50 [facility] Past Medical History Medical History Paroxysmal A-fib s/p surgery Chronic narcotic use Obesity Knee joint effusion Right knee DJD Tobacco dependence Cervical spinal stenosis Right knee pain Degenerative joint disease of knee HLD (hyperlipidemia) HTN (hypertension) Injury of right knee Surgical History Surgical History S/P total knee arthroplasty S/P rotator cuff repair bilateral History of tonsillectomy History of laminectomy Family History Family History Father Cerebrovascular accident Sibling Malignant neoplasm of prostate Mother Family history of lung cancer Social History Social History Social History: Smoking packs per day: 0.5 Smoking cigarettes per day: 10.0 Years smoked: 20 Smoking pack-years: 10.00 Smoking status: Former smoker Tobacco type: cigarettes Second hand tobacco smoke exposure: Yes Alcohol intake: current Drinks per week: 3 Alcohol use details: Social Substance use: current Substance use type: opiates Other substance usage details: Oxycodone Do You Feel Safe in your Home?: Yes Lack of Transportation: No Lack of Food: Never True Current Housing: I Have Housing Concerned About Future Housing: No Difficulty Paying Gas/Electric Bills: No Difficulty Paying for Meds: No Currently Unemployed: YES Education: Don't Know Difficulty w/ Childcare or Family Care: No Living arrangements: with family Additional living arrangements comments: Occupation/Education: retired Gender identity (if verbalized by the patient): Male Sexual Orientation (if Verbalized by the Patient): Straight or Heterosexual Spiritual care concerns: No Meds Home Medications and Allergies Home Medications ?Medication ?Instructions ?Recorded ?Confirmed ?Type fenofibrate 160 mg tablet See Rx Instructions .Route 11/23/23 10/31/24 Rx .COMPLEX #90 tabs tadalafil 20 mg tablet (Cialis) 20 mg PO DAILY PRN sexual activity 12/05/23 10/31/24 Rx #30 tabs tacrolimus 0.1 % topical ointment 1 applic topical BID PRN Skin 02/22/24 10/31/24 Rx Irritation #30 grams desvenlafaxine succinate 100 mg 100 mg PO QAM #90 tabs 02/25/24 10/31/24 Rx tablet,extended release 24 hr amlodipine 10 mg tablet See Rx Instructions .Route 06/19/24 11/07/24 Rx .COMPLEX #90 tabs buspirone 15 mg tablet 15 mg PO TID #270 tabs 07/28/24 10/31/24 Rx hydrochlorothiazide 25 mg tablet 25 mg PO QAM #90 tabs 07/31/24 10/31/24 Rx omeprazole 40 mg capsule,delayed 40 mg PO DAILY #90 caps 08/25/24 10/31/24 Rx release cyclobenzaprine 10 mg tablet See Rx Instructions .Route 09/23/24 10/31/24 Rx .COMPLEX #90 tabs ciclopirox 1 % shampoo See Rx Instructions .Route 09/29/24 10/31/24 Rx .COMPLEX #360 mL zolpidem 5 mg tablet (Ambien) 5 mg PO QHS #30 tabs 10/17/24 10/31/24 Rx losartan 100 mg tablet 100 mg PO QAM #90 tabs 10/27/24 10/31/24 Rx oxycodone 20 mg tablet 20 mg PO TID PRN pain #90 tabs 10/28/24 10/31/24 Rx clindamycin phosphate 1 % topical 1 applic topical BID PRN infections 10/31/24 10/31/24 History swab tamsulosin 0.4 mg capsule 0.4 mg PO BID 10/31/24 10/31/24 History Allergies Allergy/AdvReac Type Severity Reaction Status Date / Time No Known Allergies Allergy Verified 11/07/24 11:48 Vital Signs Vital Signs - 24 hr 11/07/24 11:50 Temperature 97.2 F L Pulse Rate 74 Respiratory Rate 19 Blood Pressure 156/88 H Pulse Oximetry 96 Oxygen Delivery Room Air Assessment and Plan Assessment and plan (1) Diarrhea: Qualifiers: Diarrhea type: due to malabsorption Qualified Code(s): K90.9 - Intestinal malabsorption, unspecified; R19.7 - Diarrhea, unspecified Code(s): R19.7 - Diarrhea, unspecified Status: Acute Assessment and Plan: The patient is deemed a good candidate for the procedures. Consent signed. Will proceed. (2) GERD (gastroesophageal reflux disease): Qualifiers: Esophagitis presence: without esophagitis Qualified Code(s): K21.9 - Gastro-esophageal reflux disease without esophagitis Code(s): K21.9 - Gastro-esophageal reflux disease without esophagitis Status: Acute
[2024-11-07] MEDS: SIMETHICONE ORAL SUSPENSION 20 MG/0.3 ML 30 ML BOTTLE 0.6 ML IRRIGATION (13:06)
--- NOTE | 2024-11-07 13:06 | SUR.OPER ---
EGD ended at 1301. Colon started at 1307.
--- NOTE | 2024-11-07 13:24 | S_PTH ---
PATIENT: Anthony Chen III LOC: [facility] #:[id number] AGE/SX: 69/M ROOM: RE11/07/[address]: Avery Garcia MD : 1955 BED: DIS: 11/07/2024 SPEC #: [id number] RECD: 11/10/24 07:19 STATUS: NIKKY RE #: [id number] FORREST: 11/07/24 13:[address]: Avery Garcia DEPT: [facility] Surgical RECD BY: Maren Renteria ENTERED: 11/10/24 07:21 SP TYPE: Surgical OTHR DR: Hung Garcia MD Tissues: A - Gastric Biopsy B - Gastric Biopsy C - Duodenal Biopsy D - Colon Biopsy E - Colon Biopsy F - Colon Polypectomy G - Colon Polypectomy H - Colon Polypectomy Procedures: Hematoxylin and Eosin Stain Gross and Microscopic Level 4
[2024-11-07 13:31] VITALS: BP 128/80; PULSE 66; RESP 17; O2SAT 96
[2024-11-07 13:40] VITALS: BP 149/83; PULSE 50; RESP 21; O2SAT 99
[2024-11-07 13:50] VITALS: BP 156/86; PULSE 67; RESP 17; O2SAT 100
== END 2024-11-07 14:05 | disposition home or self-care (01) ==
PROVIDERS: PCP Family Medicine; Referring Provider Nurse Practitioner Family; Visit Provider Internal Medicine Gastroenterology
PROC: 0DJ08ZZ Inspection of Upper Intestinal Tract, Via Natural or Artificial Opening Endoscopic (ICD-10-PCS; CPT 45378; principal; 2024-11-07 12:30)
DX: R19.7 Diarrhea, unspecified (principal); K90.9 Intestinal malabsorption, unspecified; D12.4 Benign neoplasm of descending colon; K63.5 Polyp of colon; K57.30 Diverticulosis of large intestine without perforation or abscess without bleeding; K21.9 Gastro-esophageal reflux disease without esophagitis; K29.30 Chronic superficial gastritis without bleeding; Z87.891 Personal history of nicotine dependence; E66.9 Obesity, unspecified; Z68.30 Body mass index [BMI] 30.0-30.9, adult
CPT/HCPCS: 45385; 45380; 43239; 88305; J2003; J2704; J7120

== ENCOUNTER 2025-01-29 08:41 | Outpatient (CLI) | payer OTHER, SELFPAY ==
--- OUTSIDE RECORDS SUMMARY | 2025-01-29 08:59 | XMS_ITS | Clinical Summary ---
Author Organization [facility] [id number] [facility] Address [address] [place] [address] Care Team Providers Care Director Of Retail Marketing Name Role Phone Hung Garcia MD Primary Care Provider [phone] Allergies Active Allergy Reactions Criticality Noted Date [...] often do you attend chur ch or lutheran services? 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 Gender Identity Not on file Sexual Orientation Not on file Last Filed Vital Signs Vital Sign Reading Time Taken Comments Blood Pressure 133/87 08/04/2020 3:54 PM BACK TENDER Pulse 76 08/04/2020 3:54 PM BACK TENDER Temperature 36.8 C (98.3 F) 08/04/2020 3:54 PM BACK TENDER Respiratory Rate 16 08/04/2020 3:54 PM BACK TENDER Oxygen Saturation 98% 08/04/2020 3:54 PM BACK TENDER Inhaled Oxygen Concentration - - Weight 94.8 [...] (1 of 2) 2004 INFLUENZA VACCINE (#1) 2025 04/14/2020 RSV VACCINE (60+ or ) (1 - 1-dose 75+ series) 2029 Medical Devices Implanted Type Area Creative Services Director Device Identifier Shelf Expiration Date Model / Serial / Lot Filler Bone Stimulan Paste 5cc W/Beads 620-005 - Sna Implanted:Qty: 1 on 08/02/2020 by Mario Matson MD at [facility] Biological N/A: Spine Cervical Posterior [employer] 02/08/2023 620-005 / NA / [id number] Description:mixed with 500mg vancomycin GAVINO REQ#[id number] Attila Std 3.6w457ct [id number] - Sna Implanted:Qty: 2 on 08/02/2020 by Mario Matson MD at [facility] Attila N/A: Spine Cervical Posterior [employer] [id number] / NA / NA Description:load # [id number] date 07/28/2020 GAVINO REQ#[id number] Screw 2.5x26mm [id number] - Sna Implanted:Qty: 1 on 08/02/2020 by Mario Matsno MD at [facility] Screw N/A: Spine Cervical Posterior [employer] [id number] / NA / NA Description:load #[id number] date 07/28/2020 Screw Infinity Multi-Ax 4.0x26mm [id number] - Sna Implanted:Qty: 1 on 08/02/2020 by Mario Matson MD at [facility] Screw N/A: Spine Cervical Posterior [employer] [id number] / NA / NA Description:load # [id number] date 07/28/2020 Screw Infinity 4.0x32mm Ma Occipitocerv [id number] - Sna Implanted:Qty: 1 on 08/02/2020 by Mario Matson MD at [facility] Screw N/A: Spine Cervical Posterior [employer] [id number] / NA / NA Description:load # [id number] date 07/24/2020 Screw Set Persona Std [id number] - Sna Implanted:Qty: 13 on 08/02/2020 by Mario Matson MD at [facility] Screw N/A: Spine Cervical Posterior [employer] [id number] / NA / NA Description:load # [id number] date 07/28/2020 Screw Infinity 3.5x20mm Ma Occipitocerv [id number] - Sna Implanted:Qty: 1 on 08/02/2020 by Mario Matson MD at [facility] Screw N/A: Spine Cervical Posterior [employer] [id number] / NA / NA Description:load # [id number] date 07/28/2020 Screw Infinity 3.5x24mm Ma Occipitocerv [id number] - Sna Implanted:Qty: 1 on 08/02/2020 by Mario Matson MD at [facility] Screw N/A: Spine Cervical Posterior [employer] [id number] / NA / NA Description:load # [id number] date 07/28/2020 Screw Infinity Multi-Ax 3.5x18mm [id number] - Sna Implanted:Qty: 3 on 08/02/2020 by Mario Matson MD at [facility] Screw N/A: Spine Cervical Posterior [employer] [id number] / NA / NA Description:load # [id number] date 07/28/2020 Screw Spinal Multi Surya 3.5x16mm [id number] - Sna Implanted:Qty: 3 on 08/02/2020 by Mario Matson MD at [facility] Screw N/A: Spine Cervical Posterior [employer] [id number] / NA / NA Description:load # [id number] date 07/28/2020 Screw Spinal Multi Surya 3.5x14mm [id number] - Sna Implanted:Qty: 1 on 08/02/2020 by Mario Matson MD at [facility] Screw N/A: Spine Cervical Posterior [employer] [id number] / NA / NA Description:load #[id number] date 07/28/2020 Screw Infinity 4.0x30mm Ma Occipitocerv [id number] Implanted:Qty: 1 on 08/02/2020 by Mario Matson MD at [facility] Spine N/A: Spine Cervical Posterior [employer] [id number] / [id number] Description:ENTERED BY RN [id number] 1X ADD Explanted Type Area Creative Services Director Device Identifier Shelf Expiration Date Model / Serial / Lot Hemostatic Surgiflo 8ml W/Thrombin 2994 - [id number] Explanted:Qty : 1 on 08/02/2020 by Mario Matson MD at [facility] Hemostatic N/A: Spine Cervical Posterior [employer] [id number] 11/08/2021 2994 / / [id number] Hemostatic Surgiflo 8ml W/Thrombin 2994 - [id number] Explanted:Qty : 1 on 08/02/2020 by Mario Matson MD at [facility] Hemostatic N/A: Spine Cervical Posterior [employer] [id number] 11/08/2021 2994 / / [id number] Hemostatic Surgifoam [id number] - Explanted:Qty : 1 on 08/02/2020 by Mario Matson MD at [facility] Hemostatic N/A: Spine Cervical Posterior [employer] [id number] 02/19/2024 1975 / NA / [id number] Insurance MEDICARE PART A HOSPITAL ONLY BCBS BLUE ACCESS CHOICE RX [facility] [employer] Advance Directives For more information, please contact: [phone] * Full Code (Latest Code Status on File) Date Activated Date Inactivated Comments 08/02/2020 5:48 PM 08/04/2020 6:15 PM Care Teams Director Of Retail Marketing Relationship Specialty Start Date End Date Hung Garcia MD [address] [facility] [address] [place] [address] PCP - General Family Practice 06/15/20
--- OUTSIDE RECORDS SUMMARY | 2025-01-29 09:00 | XMS_ITS | Clinical Summary ---
Author Organization [facility] Address [address] [place] [address] Care Team Providers Care Ingot Stripper Name Role Phone Hung Garcia MD Primary [...] (01/25/2022): Added automatically from request for surgery [id number] Flap laceration of lower extremity 11/14/2021 Open wound of right knee, leg, and ankle 022 Overview (11/13/2021): Added automatically from request for surgery [id number] Assessment & Plan (11/14/2021 5:20 PM CDT): 66 year old man, s/p R knee arthroplasty at [facility] 09/30. Fell on R knee 10/17 [...] on cefepime/vancomycin from 11/10-, now transferred to [facility] for gastrocnemius flap+skin graft coverage of a persistent skin defect which was performed on 11/14/21. Recs: -Stop Vancomycin, no evidence of MRSA or other gram positive cocci component to infection noted. -Continue cefepime, can reduce to 2g IV q12h for prison therapy. -While on cefepime please get CBC/CMP [...] (11/09/2021): Added automatically from request for surgery [id number] Assessment & Plan (01/05/2022 12:31 PM CDT): [...] W/ IMPLANT 06/11/2020 - 06/10/2021 cervical spine [place] ARTHRP KNE CONDYLE&PLATU MEDIAL&LAT COMPARTMENTS 09/14/2021 Right [...] Cessation:Counseling Given: Not Answered Social Connection and Isolation Panel Answer Date Recorded In a typical week, how many times do you talk on the phone with family, friends, or neighbors? More than three times a week 09/18/2022 How often do you get togethe r with friends or relatives? More than three times a week 09/18/2022 How often do you attend [facility] or mormonism services? 1 to 4 times per year 09/18/2022 Do you belong to any clubs o r organizations such as baptism groups, unions, fraternal or athletic groups, or [...] place to sleep or slept in a chcf (including now)? No 12/05/2021 Personal Safety Answer Date Recorded Have you ever been in or are you currently in a harmful physical or emotional relationship or is someone making you feel afraid or unsafe? 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 Gender Identity Not on file Sexual [...] Pneumococcal vaccine 65+ (2 of 2 - PCV20 or PCV21) 05/14/2022 05/14/2021 Depression Screening 11/09/2022 11/09/2021 Fall Risk Assessment 09/20/2023 09/19/2022 Covid-19 Vaccine (5 - 2023-2 5 season) 2024 10/03/2021, 05/03/2021, 09/17/2020, Additional history exists Influenza Vaccine (#1) 2025 3, 05/14/2021, 04/21/2020, Additional history exists Goals [...] as needed Medical Devices Implanted Type Area Solar Energy Consultant And Designer Device Identifier Shelf Expiration Date Model / Serial / Lot [employer] Simplex P Radiopaque Full Dose Cement Bone Sterile 6191-1-010 - S0 - [id number] Implanted:Qty: 2 on 03/06/2022 by Mary Alice Bermudez MD at [facility] Bone Cement Right: Knee [employer] 05/10/2024 6191-1-010 / 0 / [id number] [employer] Simplex P Radiopaque Full Dose Cement Bone Sterile 6191-1- - S0 - [id number] Implanted:Qty: 1 on 03/06/2022 by Mary Alice Bermudez MD at [facility] Bone Cement Right: Knee [employer] 03/10/2024 6191-1-010 / 0 / [id number] [employer] Simplex P Radiopaque Full Dose Cement Bone Sterile 6191-1-010 - S0 - [id number] Implanted:Qty: 1 on 03/06/2022 by Mary Alice Bermudez MD at [facility] Bone Cement Right: Knee [employer] 08/09/2023 6191-1-010 / 0 / [id number] [employer] Nexgen Rotate Hinge Stem Knee 5 Plate Tibial Zimaloy Pmma Uhmwpe [id number] - S0 - [id number] Implanted:Qty: 1 on 03/06/2022 by Mary Alice Bermudez MD at [facility] Other - see comments Right: Knee [employer] [id number] 1 08/08/2024 [id number] / 0 / [id number] [employer] Nexgen 15mm 30mm 75mm Rotate Hinge Knee Tibia Straight Extension [id number] - S0 - [id number] Implanted:Qty: 1 on 03/06/2022 by Mary Alice Bermudez MD at [facility] Other - see comments Right: Knee [employer] [id number] 1 01/23/2030 [id number] / 0 / [id number] [employer] Persona [facility]one Knee Medium Augment Tibial Trabecular Metal [id number] - S0 - [id number] Implanted:Qty: 1 on 03/06/2022 by Mary Alice Bermudez MD at [facility] Other - see comments Right: Knee [employer] [id number] 1 03/22/2030 [id number] / 0 / [id number] Elise & Nephew[employer]Richco/O rtho Prep-Im Plug Albia Sponge Suction Hip Kit Thr Latex Free 743386 - S0 - [id number] Implanted:Qty: 1 on 03/06/2022 by Mary Alice Bermudez MD at [facility] Other - see comments Right: Knee [employer]O rtho 11/23/2031 [id number] / 0 / [id number] Elise [employer]Rich[employer]/O rtho Carreno 25mm Plug Hip Femoral 16-21mm Restrictor Bone Cement Sterile 479682 - S0 - [id number] Implanted:Qty: 1 on 03/06/2022 by Mary Alice Bermudez MD at [facility] Other - see comments Right: Knee [employer]/O rtho [id number] 08/20/2031 [id number] / 0 [id number] Joint Right: Knee Plates,Screws N/A: Cervica l-Thora cic Spine Description:C1-T2 Biocomposites Stimulan Rapid Cure Kit Paste Supervisor Liquefaction 10cc 20cc Bone Void 620-010 - [id number] Implanted:Qty: 1 on 11/10/2021 by Mary Alice Bermudez MD at [facility] Right: Knee [employer] 02/09/2024 620-010 / / [id number] Description:Implant pause pe rformed [employer] Palacos R High Viscosity Cement 40gm Bone Green 4333678 - [id number] Implanted:Qty: 1 on 11/10/2021 by Mary Alice Bermudez MD at [facility] Right: Knee [employer] 02/08/2026 [id number] / / [id number] Description:Implant pause pe rformed [employer] Palacos R High Viscosity Cement 40gm Bone Green 0063397 - [id number] Implanted:Qty: 1 on 11/10/2021 by Mary Alice Bermudez MD at [facility] Right: Knee [employer] 02/08/2026 [id number] / / [id number] Description:Implant pause pe rformed [employer] Palacos R High Viscosity Cement 40gm Bone Green 4622795 - [id number] Implanted:Qty: 1 on 11/10/2021 by Mary Alice Bermudez MD at [facility] Right: Knee [employer] 02/08/2026 [id number] / / [id number] Description:Implant pause pe rformed [employer] Inc [id number] Tibial Attune Cr Alpoly Sz 8 12mm - [id number] Implanted:Qty: 1 on 11/10/2021 by Mary Alice Bermudez MD at [facility] Right: Knee [employer] [id number] 08/08/2025 [id number] / / [id number] Description:Implant pause pe rformed [employer] Inc Attune Cemented Cruciate Retaining Knee Right 7 Component Femoral [id number] - [id number] Implanted:Qty: 1 on 11/10/2021 by Mary Alice Bermudez MD at [facility] Right: Knee [employer] [id number] 09/09/2031 [id number] / / [id number] Description:Implant pause pe rformed [employer] Palacos R High Viscosity Cement 40gm Bone Green 6100326 - [id number] Implanted:Qty: 1 on 11/28/2021 by Mary Alice Bermudez MD at [facility] Right: Knee [employer] 04/10/2024 [id number] / / [id number] [employer] Palacos R High Viscosity Cement 40gm Bone Green 3532379 - [id number] Implanted:Qty: 2 on 11/28/2021 by Mary Alice Bermudez MD at [facility] Right: Knee [employer] 02/08/2026 [id number] / / [id number] [employer] Nexgen 58t05k30qt Rotate Hinge Machine Mold Knee 5-6 F Insert [id number] - [id number] Implanted:Qty: 1 on 03/06/2022 by Mary Alice Bermudez MD at [facility] Right: Knee [employer] [id number] 1 08/23/2025 [id number] / / [id number] [employer] Nexgen [id number] Rotate Hinge Knee Right F Component Femoral [id number] - [id number] Implanted:Qty: 1 on 03/06/2022 by Mary Alice Bermudez MD at [facility] Right: Knee [employer] [id number] 11/14/2025 [id number] / / [id number] [employer] Nexgen Od20 Mm L100 Mm L145 Mm Rotate Hinge Knee; Tibia Straight [id number] - [id number] Implanted:Qty: 1 on 03/06/2022 by Mary Alice Bermudez MD at [facility] Right: Knee [employer] 07/11/2024 [id number] / / [employer] Nexgen 10mm Distal F Block Augmentation Precoat [id number] - [id number] Implanted:Qty: 1 on 03/06/2022 by Mary Alice Bermudez MD at [facility] Right: Knee [employer] [id number] 08/08/2025 [id number] / / [id number] [employer] Nexgen 5mm Posterior F Block Augmentation Precoat [id number] - [id number] Implanted:Qty: 1 on 03/06/2022 by Mary Alice Bermudez MD at [facility] Right: Knee [employer] [id number] 02/08/2029 [id number] / / [id number] [employer] Nexgen 15mm Rotate Hinge Knee Distal F Augment Femoral Tivanium 19448354036 - [id number] Implanted:Qty: 1 on 03/06/2022 by Mary Alice Bermudez MD at [facility] Right: Knee [employer] [id number] 08/09/2023 [id number] / / [id number] Explanted Type Area Solar Energy Consultant And Designer Device Identifier Shelf Expiration Date Model / Serial / Lot Conmed Vahid Conmed 16mm Duraclip [id number] - [id number] Explanted:Qty: 1 on 09/16/2022 by Henrry Hancock MD at [facility] Clip N/A: Duodenum Conmed Vahid 08/18/2024 [id number] / / [id number] [facility] ADVANTAGE CHOICE PPO ADVANTAGE CHOICE PPO MEDICARE ADVANTAGE [place] ADVANTAGE CHOICE PPO Advance Directives For more information, please contact: [phone] * Full Code (Latest Code Status on [...] 4:44 PM 11/13/2021 11:42 PM Care Teams Ingot Stripper Relationship Specialty Start Date End Date Hung Garcia MD [address] [facility] [address] [place] [address] PCP - General Family Medicine 04/14/20 [place] [address] [place] [address] Consulting Physician Gastroenterology 09/19/22
--- OUTSIDE RECORDS SUMMARY | 2025-01-29 09:00 | XMS_ITS | Encounter Summary ---
Author Organization [facility] Address [address] [place] [address] Care Team Providers Care Social Worker School Name Role Phone Hung Garcia MD Primary Care Provider [phone] Reason for Visit * Reason Onset Date Comments CONSULT TO HOSPITALIST 08/02/[address] MAIL Encounter Details Date Type Department Care Team (Late st Contact Info) Description 08/02/2020 Telephone [facility] Admitting [address] [place] [address] [place] [address] [address] CONSULT TO HOSPITALIST (LEFT MESSAGE [...] file 08/02/2020 How often do you attend [facility] or caodaism services? 1 to 4 times per year 08/02/2020 Do you belong to any clubs o r organizations such as episcopal groups, unions, fraternal or athletic groups, or [...] on file Legal Sex Male 4:[address] Gender Identity Not on file Sexual Orientation Not on file COVID-19 Exposure Response Date Recorded In the last month, have you been in contact with someone who was confirmed or suspected to have Coronavirus / COVID-19? No / Unsure 08/02/2020 7:[address] documented as of this encounter Plan of Treatment Not on file documented as of this encounter Visit Diagnoses Not on filedocumented in this encounter Care Teams Social Worker School Relationship Specialty Start Date End Date Hung Garcia MD [address] [facility] [address] [facility] [address] [place] [address] PCP - General Family Practice 06/15/20 documented as of this encounter
--- OUTSIDE RECORDS SUMMARY | 2025-01-29 09:00 | XMS_ITS | Clinical Summary ---
Author Organization [facility] Address [address] [facility] [place] [address] Care Team Providers Care Featherer Name Role Phone Hung Garcia MD Primary Care Provider [phone] Source Comments [facility],non-owned Affiliates and Associated Physician Practices is amultiple site organization consisting of ambulatory clinics and hospital sitesin [place], [place], [place] and [place]. This disclosure is being madepursuant to the Care Everywhere program and may not contain all information available regarding this patient. 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 MEDICARE ADV PPO SELF PAY NO INSURANCE Member Subscriber Plan / Payer (Ef fective for All Dates) Name:Junior Chen III Member ID:Not on file Relation to Subscriber:Not on file Name:JUNIOR CHEN III Subscriber ID:Not on file (Home) Address: [address] [place] [id number] Payer ID:Not on file Group ID:Not on file Type:Self Pay Address: [place], [place] Care Teams Featherer Relationship Specialty Start Date End Date Hung Garcia MD [address] [place] [address] PCP - General 02/01/16
[2025-01-29 09:29] LABS: Hematocrit 43.9 % (42.0-52.0); Hemoglobin 14.0 g/dL (14.0-18.0); Immature Granulocyte Percent A 0.2 % (0-0.5); Lymphocytes Absolute Auto 1.77 K/mm3 (0.9-3.2); Mean Corpuscular HGB Conc 31.9 g/dl (32-36); Mean Corpuscular Hemoglobin 29.0 pg (26-34); Mean Corpuscular Volume 91.1 fl (80-100); Nucleated Red Blood Cells Absolute Auto 0.000 K/mm3 (0.0-0.012); Nucleated Red Blood Cells Perc 0.0 % (0.0-0.2); Platelet Count Result 257 k/mm3 (150-375); Red Blood Count 4.82 M/mm3 (4.6-6.20); White Blood Count 4.8 K/mm3 (4.5-10.0)
[2025-01-29 09:51] LABS: Add Urine Microscopic? YES; Appearance Urine Cloudy (Clear); Glucose Urine UA Negative (Negative); Leukocyte Esterase Ur Negative LEU/UL (Negative); Nitrate Urine Negative (Negative); Non Pathogenic Casts 0-2; Specific Grav Ur 1.011 (1.001-1.035)
[2025-01-29 09:53] LABS: Hemoglobin A1C 5.8 % (<5.7)
[2025-01-29 09:57] LABS: Alanine Aminotransferase 30 U/L (6-50); Albumin Level 4.5 g/dL (3.5-5.1); Alkaline Phosphatase 58 U/L (38-126); Anion Gap 9 mmol/L (4-12); Aspartate Amino Transferase 33 U/L (17-59); Bilirubin,Total 0.3 mg/dL (0.2-1.3); Blood Urea Nitrogen 18 mg/dL (9-20); Calcium 9.3 mg/dL (8.4-10.2); Carbon Dioxide 25 mmol/L (22-30); Chloride 105 mmol/L (98-107); Cholesterol 175 mg/dL (0-200); Estimated Glomerular Filt Rate > 60; Glucose 94 mg/dL (65-110); HDL Direct 41 mg/dL; Potassium 4.0 mmol/L (3.4-5.0); Sodium 139 mmol/L (137-145); Total Protein 7.3 g/dL (6.3-8.2); Triglycerides 203 mg/dL (<150)
[2025-01-29 10:33] LABS: Prostate Specific Antigen 0.1 ng/mL (< OR = 4.0); Thyroid Stimulating Hormone 2.880 uIU/mL (0.465-4.680)
[2025-02-04 23:07] LABS: Free Testosterone (Direct) 0.6 pg/mL (6.6-18.1)
== END 2025-01-29 08:42 | disposition home or self-care (01) ==
LOC: ANHLAB 08:47
PROVIDERS: PCP Family Medicine; Visit Provider Physician Assistant
DX: R79.89 Other specified abnormal findings of blood chemistry (principal); R73.01 Impaired fasting glucose; E78.5 Hyperlipidemia, unspecified; I48.0 Paroxysmal atrial fibrillation; I35.0 Nonrheumatic aortic (valve) stenosis; I10 Essential (primary) hypertension; F11.90 Opioid use, unspecified, uncomplicated; R35.1 Nocturia; N40.1 Benign prostatic hyperplasia with lower urinary tract symptoms
CPT/HCPCS: 36415; 80053; 80061; 81001; 83036; 84153; 84402; 84403; 84443; 85025

== ENCOUNTER 2025-02-26 10:02 | Outpatient (CLI) | payer OTHER, SELFPAY ==
--- NOTE | ~2025-02-26 | US_ITS ---
EXAMINATION: US aorta [facility] DATE: 03/02/2025 18:19 CDT INDICATION: Encounter for screening for aneurysm TECHNIQUE: Grayscale, color Doppler, and pulsed Doppler images of the aorta and common iliac arteries were obtained. COMPARISON: None. FINDINGS: The proximal aorta measures 3 cm greatest sagittal dimension. The mid aorta measures 2.1 cm greatest sagittal dimension. The distal aorta measures 2.6 cm greatest sagittal dimension. The right common internal iliac artery measures 1.3 cm. The left common iliac artery measures 1.3 cm. IMPRESSION: 1. Proximal abdominal aortic aneurysm measuring 3 cm. Reviewed, dictated and finalized at location O.
--- OUTSIDE RECORDS SUMMARY | 2025-02-26 10:44 | XMS_ITS | Encounter Summary ---
Author Organization [facility] Address [address] [place] [address] Care Team Providers Care Operating Engineer Apprentice Name Role Phone Hung Garcia MD Primary Care Provider [phone] Reason for Visit * Reason Onset Date Comments CONSULT TO HOSPITALIST 08/02/[address] VO[address] MAIL Encounter Details Date Type Department Care Team (Late st Contact Info) Description 08/02/2020 Telephone [facility] Admitting [address] [place] [address] [place] [address] [address] CONSULT TO HOSPITALIST (LEFT MESSAGE [...] file 08/02/2020 How often do you attend [facility] or islam services? 1 to 4 times per year 08/02/2020 Do you belong to any clubs o r organizations such as mosque groups, unions, fraternal or athletic groups, or [...] on file Legal Sex Male 4:19 PM BARGE HAND Gender Identity Not on file Sexual Orientation Not on file COVID-19 Exposure Response Date Recorded In the last month, have you been in contact with someone who was confirmed or suspected to have Coronavirus / COVID-19? No / Unsure 08/02/2020 7:03 AM BARGE HAND documented as of this encounter Plan of Treatment Not on file documented as of this encounter Visit Diagnoses Not on filedocumented in this encounter Care Teams Operating Engineer Apprentice Relationship Specialty Start Date End Date Hung Garcia MD [address] [facility] [address] [facility] [address] [place] [address] PCP - General Family Practice 06/15/20 documented as of this encounter
--- OUTSIDE RECORDS SUMMARY | 2025-02-26 10:44 | XMS_ITS | Clinical Summary ---
Author Organization [facility] Address [address] [place] [address] Care Team Providers Care Technical System Analyst Name Role Phone Hung Garcia MD Primary Care Provider [phone] Source Comments [facility],non-owned Affiliates and Associated Physician Practices is amultiple site organization consisting of ambulatory clinics and hospital sitesin [place], [place], [place] and [place]. This disclosure is being madepursuant to the Care Everywhere program and may not contain all information available regarding this patient. 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 Gender Identity Not on file Sexual Orientation [...] (1 of 2) 2004 AAA SCREENING 2019 DEPRESSION SCREENING 06/11/2024 COVID-19 VACCINE (1 - 2023-2 5 season) 2025 INFLUENZA VACCINE (#1) 2025 9, 04/30/2018 Respiratory [...] age to complete this topic Insurance [facility] MEDIC[facility] ADV PPO SELF PAY NO INSURANCE Member Subscriber Plan / Payer (Ef fective for All Dates) Name:Junior Chen III Member ID:Not on file Relation to Subscriber:Not on file Name:JUNIOR CHEN III Subscriber ID:Not on file (Home) Address: [address] [place] [phone] Payer ID:Not on file Group ID:Not on file Type:Self Pay Address: [place], [place] Care Teams Technical System Analyst Relationship Specialty Start Date End Date Hung Garcia MD [address] [place] [address] PCP - General 02/01/16
--- OUTSIDE RECORDS SUMMARY | 2025-02-26 10:44 | XMS_ITS | Clinical Summary ---
Author Organization [facility] Address [address] [place] [address] Care Team Providers Care Assembler Deck And Hull Name Role Phone Hung Garcia MD Primary Care Provider Henrry Hancock MD Unavailable [phone] Allergies No known active allergies Medications cyclobenzaprine [...] (01/25/2022): Added automatically from request for surgery [id number] Flap laceration of lower extremity 11/14/2021 Open wound of right knee, leg, and ankle 022 Overview (11/13/2021): Added automatically from request for surgery [id number] Assessment & Plan (11/14/2021 5:20 PM CDT): 66 year old man, s/p R knee arthroplasty at [facility] 09/30. Fell on R knee 10/17 with [...] on cefepime/vancomycin from 11/10-, now transferred to [facility] for gastrocnemius flap+skin graft coverage of a persistent skin defect which was performed on 11/14/21. Recs: -Stop Vancomycin, no evidence of MRSA or other gram positive cocci component to infection noted. -Continue cefepime, can reduce to 2g IV q12h for nursing home therapy. -While on cefepime please get CBC/CMP [...] (11/09/2021): Added automatically from request for surgery [id number] Assessment & Plan (01/05/2022 12:31 PM CDT): [...] W/ IMPLANT 06/11/2020 - 06/10/2021 cervical spine ME ARTHRP KNE CONDYLE&PLATU MEDIAL&LAT COMPARTMENTS 09/14/2021 Right [...] week 09/18/2022 How often do you attend [facility] or sikhism services? 1 to 4 times per year 09/18/2022 Do you belong to any clubs o r organizations such as buddhist groups, unions, fraternal or athletic groups, or [...] place to sleep or slept in a nursing home (including now)? No 12/05/2021 Personal Safety Answer Date Recorded Have you ever been in or are you currently in a harmful physical or emotional relationship or is someone making you feel afraid or unsafe? 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 Gender Identity Not on file Sexual Orientation [...] Assessment 09/20/2023 09/19/2022 Covid-19 Vaccine (5 - 2024-2 6 season) 2025 10/03/2021, 05/03/2021, 09/17/2020, Additional history exists Influenza [...] as needed Medical Devices Implanted Type Area Academic Assistant Device Identifier Shelf Expiration Date Model / Serial / Lot [employer] Simplex P Radiopaque Full Dose Cement Bone Sterile 6191-1-010 - S0 - [id number] Implanted:Qty: 2 on 03/06/2022 by Mary Alice Bermudez MD at [facility] Bone Cement Right: Knee [employer] 05/10/2024 6191-1-010 / 0 / [id number] [employer] Simplex P Radiopaque Full Dose Cement Bone Sterile 6191-1- - S0 - [id number] Implanted:Qty: 1 on 03/06/2022 by Mary Alice Bermudez MD at [facility] Bone Cement Right: Knee [employer] 03/10/2024 6191-1-010 / 0 / [id number] [employer] Simplex P Radiopaque Full Dose Cement Bone Sterile 6191-1-010 - S0 - [id number] Implanted:Qty: 1 on 03/06/2022 by Mary Alice Bermudez MD at [facility] Bone Cement Right: Knee [employer] 08/09/2023 6191-1-010 / 0 / [id number] [employer] Nexgen Rotate Hinge Stem Knee 5 Plate Tibial Zimaloy Pmma Uhmwpe [id number] - S0 - [id number] Implanted:Qty: 1 on 03/06/2022 by Mary Alice Bermudez MD at [facility] Other - see comments Right: Knee [employer] [id number] 1 08/08/2024 [id number] / 0 / [id number] [employer] Nexgen 15mm 30mm 75mm Rotate Hinge Knee Tibia Straight Extension [id number] - S0 - [id number] Implanted:Qty: 1 on 03/06/2022 by Mary Alice Bermudez MD at [facility] Other - see comments Right: Knee [employer] [id number] 1 01/23/2030 [id number] / 0 / [id number] [employer] Persona [facility] Knee Medium Augment Tibial Trabecular Metal [id number] - S0 - [id number] Implanted:Qty: 1 on 03/06/2022 by Mary Alice Bermudez MD at [facility] Other - see comments Right: Knee [employer] [id number] 1 03/22/2030 [id number] / 0 / [id number] Elise [employer]hew[employer]Rich[employer]/O rtho Prep-Im Plug [place] Sponge Suction Hip Kit Thr Latex Free 456619 - S0 - [id number] Implanted:Qty: 1 on 03/06/2022 by Mary Alice Bermudez MD at [facility] Other - see comments Right: Knee [employer]/O rtho 11/23/2031 [id number] / 0 / [id number] [employer]Rich[employer]/O rtho Carreno 25mm Plug Hip Femoral 16-21mm Restrictor Bone Cement Sterile 813257 - S0 - [id number] Implanted:Qty: 1 on 03/06/2022 by Mary Alice Bermudez MD at [facility] Other - see comments Right: Knee [employer]Rich[employer]/O rtho [id number] 08/20/2031 [id number] / 0 [id number] Joint Right: Knee Plates,Screws N/A: Cervica l-Thora cic Spine Description:C1-T2 Biocomposites Stimulan Rapid Cure Kit Paste Holistic Nutritionist 10cc 20cc Bone Void 620-010 - [id number] Implanted:Qty: 1 on 11/10/2021 by Mary Alice Bermudez MD at [facility] Right: Knee [employer] 02/09/2024 620-010 / / [id number] Description:Implant pause pe rformed [employer] Palacos R High Viscosity Cement 40gm Bone Green 9269963 - [id number] Implanted:Qty: 1 on 11/10/2021 by Mary Alice Bermudez MD at [facility] Right: Knee [employer] 02/08/2026 [id number] / / [id number] Description:Implant pause pe rformed [employer] Palacos R High Viscosity Cement 40gm Bone Green 5582086 - [id number] Implanted:Qty: 1 on 11/10/2021 by Mary Alice Bermudez MD at [facility] Right: Knee [employer] 02/08/2026 6152785 / / [id number] Description:Implant pause pe rformed [employer] Palacos R High Viscosity Cement 40gm Bone Green 9621064 - [id number] Implanted:Qty: 1 on 11/10/2021 by Mary Alice Bermudez MD at [facility] Right: Knee [employer] 02/08/2026 4259209 / / [id number] Description:Implant pause pe rformed [employer] Inc [id number] Tibial Attune Cr Alpoly Sz 8 12mm - [id number] Implanted:Qty: 1 on 11/10/2021 by Mary Alice Bermudez MD at [facility] Right: Knee [employer] [id number] 08/08/2025 [id number] / / [id number] Description:Implant pause pe rformed [employer] Inc Attune Cemented Cruciate Retaining Knee Right 7 Component Femoral [id number] - [id number] Implanted:Qty: 1 on 11/10/2021 by Mary Alice Bermudez MD at [facility] Right: Knee [employer] [id number] 09/09/2031 [id number] / / [id number] Description:Implant pause pe rformed [employer] Palacos R High Viscosity Cement 40gm Bone Green 3685696 - [id number] Implanted:Qty: 1 on 11/28/2021 by Mary Alice Bermudez MD at [facility] Right: Knee [employer] 04/10/2024 [id number] / / [id number] [employer] Pal[place]os R High Viscosity Cement 40gm Bone Green 4146734 - [id number] Implanted:Qty: 2 on 11/28/2021 by Mary Alice Bermudez MD at [facility] Right: Knee [employer] 02/08/2026 7031059 / / [id number] [employer] Nexgen 86s06s73ta Rotate Hinge Machine Mold Knee 5-6 F Insert [id number] - [id number] Implanted:Qty: 1 on 03/06/2022 by Mary Alice Bermudez MD at [facility] Right: Knee [employer] [id number] 1 08/23/2025 [id number] / / [id number] [employer] Nexgen 56c90br Rotate Hinge Knee Right F Component Femoral 07873845985 - [id number] Implanted:Qty: 1 on 03/06/2022 by Mary Alice Bermudez MD at [facility] Right: Knee [employer] [id number] 11/14/2025 [id number] / / [id number] [employer] Nexgen Od20 Mm L100 Mm L145 Mm Rotate Hinge Knee; Tibia Straight 96468500461 - [id number] Implanted:Qty: 1 on 03/06/2022 by Mary Alice Bermudez MD at [facility] Right: Knee [employer] 07/11/2024 [id number] / / [employer] Nexgen 10mm Distal F Block Augmentation Precoat 61866005312 - [id number] Implanted:Qty: 1 on 03/06/2022 by Mary Alice Bermudez MD at [facility] Right: Knee [employer] [id number] 08/08/2025 [id number] / / [id number] [employer] Nexgen 5mm Posterior F Block Augmentation Precoat 35962585835 - [id number] Implanted:Qty: 1 on 03/06/2022 by Mary Alice Bermudez MD at [facility] Right: Knee [employer] [id number] 02/08/2029 [id number] / / [id number] [employer] Nexgen 15mm Rotate Hinge Knee Distal F Augment Femoral Tivanium 37054472959 - [id number] Implanted:Qty: 1 on 03/06/2022 by Mary Alice Bermudez MD at [facility] Right: Knee [employer] [id number] 1 08/09/2023 [id number] / / [id number] Explanted Type Area Academic Assistant Device Identifier Shelf Expiration Date Model / Serial / Lot Conmed Vahid Conmed 16mm Duraclip Ca7477y - [id number] Explanted:Qty: 1 on 09/16/2022 by Henrry Hancock MD at [facility] Clip N/A: Duodenum Conmed Vahid 08/18/2024 XC1384 W / / [id number] Description:[facility]aced at [facility] Insurance ADVANTAGE CHOICE PPO ADVANTAGE CHOICE PPO MEDICARE ADVANTAGE [place] ADVANTAGE CHOICE PPO Advance Directives For more information, please contact: [phone] * Full Code (Latest Code Status on [...] 4:44 PM 11/13/2021 11:42 PM Care Teams Assembler Deck And Hull Relationship Specialty Start Date End Date Hung Garcia MD [address] [facility] [address] [place] [address] PCP - General Family Medicine 04/14/20 [place] [address] [place] [address] Consulting Physician Gastroenterology 09/19/22
--- OUTSIDE RECORDS SUMMARY | 2025-02-26 10:44 | XMS_ITS | Clinical Summary ---
Author Organization [facility] [address] [facility] Address [address] [place] [address] Care Team Providers Care Brokerage Manager Name Role Phone Hung Garcia MD Primary Care Provider [phone] Allergies Active Allergy Reactions Criticality Noted Date [...] often do you attend chur ch or anabaptist services? 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 Gender Identity Not on file Sexual Orientation Not on file Last Filed Vital Signs Vital Sign Reading Time Taken Comments Blood Pressure 133/87 08/04/2020 3:54 PM PENSION ADMINISTRATOR Pulse 76 08/04/2020 3:54 PM PENSION ADMINISTRATOR Temperature 36.8 C (98.3 F) 08/04/2020 3:54 PM PENSION ADMINISTRATOR Respiratory Rate 16 08/04/2020 3:54 PM PENSION ADMINISTRATOR Oxygen Saturation 98% 08/04/2020 3:54 PM PENSION ADMINISTRATOR Inhaled Oxygen Concentration - - Weight 94.8 [...] series) 2029 Medical Devices Implanted Type Area Broadband Technician Device Identifier Shelf Expiration Date Model / Serial / Lot Filler Bone Stimulan Paste 5cc W/Beads 620-005 - Sna Implanted:Qty: 1 on 08/02/2020 by Mario Matson MD at [facility] Biological N/A: Spine Cervical Posterior [employer] 02/08/2023 620-005 / NA / [id number] Description:mixed with 500mg vancomycin GAVINO REQ#[id number] Attila Std 3.7q493fw 3621006 - Sna Implanted:Qty: 2 on 08/02/2020 by Mario Matson MD at [facility] Attila N/A: Spine Cervical Posterior [employer]K [id number] / NA / NA Description:load # [id number] date 07/28/2020 GAVINO REQ#[id number] Screw 2.5x26mm [id number] - Sna Implanted:Qty: 1 on 08/02/2020 by Mario Matson MD at [facility] Screw N/A: Spine Cervical Posterior [employer] 5703893 / NA / NA Description:load #[id number] date 07/28/2020 Screw Infinity Multi-Ax 4.0x26mm 0886880 - Sna Implanted:Qty: 1 on 08/02/2020 by Mario Matson MD at [facility] Screw N/A: Spine Cervical Posterior [employer] 6209067 / NA / NA Description:load # [id number] date 07/28/2020 Screw Infinity 4.0x32mm Ma Occipitocerv 5286988 - Sna Implanted:Qty: 1 on 08/02/2020 by Mario Matson MD at [facility] Screw N/A: Spine Cervical Posterior [employer] 4102371 / NA / NA Description:load # [id number] date 07/24/2020 Screw Set Persona Std 5467282 - Sna Implanted:Qty: 13 on 08/02/2020 by Mario Matson MD at [facility] Screw N/A: Spine Cervical Posterior [employer] 0539612 / NA / NA Description:load # [id number] date 07/28/2020 Screw Infinity 3.5x20mm Ma Occipitocerv [id number] - Sna Implanted:Qty: 1 on 08/02/2020 by Mario Matson MD at [facility] Screw N/A: Spine Cervical Posterior [employer] 6830275 / NA / NA Description:load # [id number] date 07/28/2020 Screw Infinity 3.5x24mm Ma Occipitocerv 3251254 - Sna Implanted:Qty: 1 on 08/02/2020 by Mario Matson MD at [facility] Screw N/A: Spine Cervical Posterior [employer] 3455761 / NA / NA Description:load # [id number] date 07/28/2020 Screw Infinity Multi-Ax 3.5x18mm [id number] - Sna Implanted:Qty: 3 on 08/02/2020 by Mario Matson MD at [facility] Screw N/A: Spine Cervical Posterior [employer] [id number] / NA / NA Description:load # [id number] date 07/28/2020 Screw Spinal Multi Surya 3.5x16mm 1070716 - Sna Implanted:Qty: 3 on 08/02/2020 by Mario Matson MD at [facility] Screw N/A: Spine Cervical Posterior [employer] 9574829 / NA / NA Description:load # [id number] date 07/28/2020 Screw Spinal Multi Surya 3.5x14mm [id number] - Sna Implanted:Qty: 1 on 08/02/2020 by Mario Matson MD at [facility] Screw N/A: Spine Cervical Posterior [employer] [id number] / NA / NA Description:load #[id number] date 07/28/2020 Screw Infinity 4.0x30mm Ma Occipitocerv [id number] Implanted:Qty: 1 on 08/02/2020 by Mario Matson MD at [facility] Spine N/A: Spine Cervical Posterior [employer] [id number] / [id number] Description:ENTERED BY RN [id number] 1X ADD Explanted Type Area Broadband Technician Device Identifier Shelf Expiration Date Model / Serial / Lot Hemostatic Surgiflo 8ml W/Thrombin 2994 - [id number] Explanted:Qty : 1 on 08/02/2020 by Mario Matson MD at [facility] Hemostatic N/A: Spine Cervical Posterior [employer] [id number] 11/08/2021 2994 / / [id number] Hemostatic Surgiflo 8ml W/Thrombin 2994 - [id number] Explanted:Qty : 1 on 08/02/2020 by Mario Matson MD at [facility] Hemostatic N/A: Spine Cervical Posterior J[employer] [id number] 11/08/2021 2994 / / [id number] Hemostatic Surgifoam Sz100 1974 - Explanted:Qty : 1 on 08/02/2020 by Mario Matson MD at [facility] Hemostatic N/A: Spine Cervical Posterior J[employer]J- [employer] [id number] 02/19/2024 1975 / NA / [id number] Insurance MEDICARE PART A HOSPITAL ONLY BCBS BLUE ACCESS CHOICE RX [facility] [employer] Advance Directives For more information, please contact: [phone] * Full Code (Latest Code Status on File) Date Activated Date Inactivated Comments 08/02/2020 5:48 PM 08/04/2020 6:15 PM Care Teams Brokerage Manager Relationship Specialty Start Date End Date Hung Garcia MD [address] [facility] [address] [place] [address] PCP - General Family Practice 06/15/20
== END 2025-02-26 10:03 | disposition home or self-care (01) ==
PROVIDERS: PCP Family Medicine; Visit Provider Physician Assistant
DX: Z13.6 Encounter for screening for cardiovascular disorders (principal); Z72.0 Tobacco use; I71.40 Abdominal aortic aneurysm, without rupture, unspecified
CPT/HCPCS: 76706

== ENCOUNTER 2025-03-30 15:19 | Outpatient (CLI) | payer OTHER, SELFPAY ==
--- NOTE | ~2025-03-30 | XR_ITS ---
XR_[id number]_CR Indication: W19.XXXA - Unspecified fall, initial encounter, neck pain Comparison: None Findings: Posterior fixation C2, C3, C4, C5, C6-C7 and T1, no fracture is identified. Moderate osteopenia. Severe loss of disc height throughout. Soft tissues unremarkable Impression: No acute abnormality. Reviewed, dictated and finalized at location P. Impression: No acute abnormality.
--- OUTSIDE RECORDS SUMMARY | 2025-03-30 17:58 | XMS_ITS | Clinical Summary ---
Author Organization [facility] [address] [facility] Address [address] [place] [address] Care Team Providers Care Executive Officer Name Role Phone Hung Garcia MD Primary Care Provider [phone] Allergies Active Allergy Reactions Criticality Noted Date [...] often do you attend chur ch or mu-ism services? 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 Gender Identity Not on file Sexual Orientation Not on file Last Filed Vital Signs Vital Sign Reading Time Taken Comments Blood Pressure 133/87 08/04/2020 3:54 PM DEHYDROGENATION SUPERVISOR Pulse 76 08/04/2020 3:54 PM DEHYDROGENATION SUPERVISOR Temperature 36.8 C (98.3 F) 08/04/2020 3:54 PM DEHYDROGENATION SUPERVISOR Respiratory Rate 16 08/04/2020 3:54 PM DEHYDROGENATION SUPERVISOR Oxygen Saturation 98% 08/04/2020 3:54 PM DEHYDROGENATION SUPERVISOR Inhaled Oxygen Concentration - - Weight 94.8 [...] 05 ZOSTER VACCINE (1 of 2) 2004 Preventative Visit- Commercial 06/11/2024 INFLUENZA VACCINE (#1) 2025 04/14/2020 RSV VACCINE (60+ or ) (1 - 1-dose 75+ series) 2029 Medical Devices Implanted Type Area Emergency Room Tech Device Identifier Shelf Expiration Date Model / Serial / Lot Filler Bone Stimulan Paste 5cc W/Beads 620-005 - Sna Implanted:Qty: 1 on 08/02/2020 by Mario Matson MD at [facility] Biological N/A: Spine Cervical Posterior BIOCOMPOSITES 02/08/2023 620-005 / NA / [id number] Description:mixed with 500mg vancomycin GAVINO REQ#[id number] Attila Std 3.1q966wf 2079734 - Sna Implanted:Qty: 2 on 08/02/2020 by Mario Matson MD at [facility] Attila N/A: Spine Cervical Posterior [employer] 2789533 / NA / NA Description:load # [id number] date 07/28/2020 GAVINO REQ#169430 Screw 2.5x26mm 9931672 - Sna Implanted:Qty: 1 on 08/02/2020 by Mario Matson MD at [facility] Screw N/A: Spine Cervical Posterior [employer] 1007447 / NA / NA Description:load #[id number] date 07/28/2020 Screw Infinity Multi-Ax 4.0x26mm 4452289 - Sna Implanted:Qty: 1 on 08/02/2020 by Mario Matson MD at [facility] Screw N/A: Spine Cervical Posterior [employer] 4676907 / NA / NA Description:load # [id number] date 07/28/2020 Screw Infinity 4.0x32mm Ma Occipitocerv 3248279 - Sna Implanted:Qty: 1 on 08/02/2020 by Mario Matson MD at [facility] Screw N/A: Spine Cervical Posterior [employer] 2316639 / NA / NA Description:load # [id number] date 07/24/2020 Screw Set Persona Std 3673974 - Sna Implanted:Qty: 13 on 08/02/2020 by Mario Matson MD at [facility] Screw N/A: Spine Cervical Posterior [employer] 2703301 / NA / NA Description:load # [id number] date 07/28/2020 Screw Infinity 3.5x20mm Ma Occipitocerv 0968247 - Sna Implanted:Qty: 1 on 08/02/2020 by Mario Matson MD at [facility] Screw N/A: Spine Cervical Posterior [employer] 6268812 / NA / NA Description:load # [id number] date 07/28/2020 Screw Infinity 3.5x24mm Ma Occipitocerv 6488862 - Sna Implanted:Qty: 1 on 08/02/2020 by Mario Matson MD at [facility] Screw N/A: Spine Cervical Posterior [employer] 1040268 / NA / NA Description:load # [id number] date 07/28/2020 Screw Infinity Multi-Ax 3.5x18mm 1159145 - Sna Implanted:Qty: 3 on 08/02/2020 by Mario Matson MD at [facility] Screw N/A: Spine Cervical Posterior [employer] 4087200 / NA / NA Description:load # [id number] date 07/28/2020 Screw Spinal Multi Surya 3.5x16mm 9958066 - Sna Implanted:Qty: 3 on 08/02/2020 by Mario Matson MD at [facility] Screw N/A: Spine Cervical Posterior [employer] 7552616 / NA / NA Description:load # [id number] date 07/28/2020 Screw Spinal Multi Surya 3.5x14mm 0582273 - Sna Implanted:Qty: 1 on 08/02/2020 by Mario Matson MD at [facility] Screw N/A: Spine Cervical Posterior [employer] 4391284 / NA / NA Description:load #[id number] date 07/28/2020 Screw Infinity 4.0x30mm Ma Occipitocerv [id number] Implanted:Qty: 1 on 08/02/2020 by Mario Matson MD at [facility] Spine N/A: Spine Cervical Posterior [employer] 3655989 / [id number] Description:ENTERED BY RN [id number] 1X ADD Explanted Type Area Emergency Room Tech Device Identifier Shelf Expiration Date Model / Serial / Lot Hemostatic Surgiflo 8ml W/Thrombin 2994 - [id number] Explanted:Qty : 1 on 08/02/2020 by Mario Matson MD at [facility] Hemostatic N/A: Spine Cervical Posterior J[employer]- [employer] [id number] 11/08/2021 2994 / / [id number] Hemostatic Surgiflo 8ml W/Thrombin 2994 - [id number] Explanted:Qty : 1 on 08/02/2020 by Mario Matson MD at [facility] Hemostatic N/A: Spine Cervical Posterior J[employer] [id number] 11/08/2021 2994 / / [id number] Hemostatic Surgifoam Sz100 1974 - Explanted:Qty : 1 on 08/02/2020 by Mario Matsno MD at [facility] Hemostatic N/A: Spine Cervical Posterior J[employer]J- [employer] [id number] 02/19/20241974 / NA / [id number] Insurance MEDICARE PART A HOSPITAL ONLY BCBS BLUE ACCESS CHOICE RX [facility] [employer] Advance Directives For more information, please contact: [phone] * Full Code (Latest Code Status on File) Date Activated Date Inactivated Comments 08/02/2020 5:48 PM 08/04/2020 6:15 PM Care Teams Executive Officer Relationship Specialty Start Date End Date Hung Garcia MD [address] [facility] [address] [place] [address] PCP - General Family Practice 06/15/20
--- OUTSIDE RECORDS SUMMARY | 2025-03-30 17:58 | XMS_ITS | Encounter Summary ---
Author Organization [facility] Address [address] [facility] [place] [address] Care Team Providers Care Driver'S License Reviewing Officer Name Role Phone Hung Garcia MD Primary Care Provider [phone] Reason for Visit * Reason Onset Date Comments Appointment 03/30/2025 Encounter Details Date Type Department Care Team (Late st Contact Info) Description 03/30/[address] 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 I advised he will need updated images, our PA is booked out three weeks. Pt is going to call PCP and schedule MRI then we will schedule an appointment w/Dr. Matson. I requested images from [facility]. documented in this encounter Plan of Treatment Not on file documented as of this encounter Visit Diagnoses Not on filedocumented in this encounter Care Teams Driver'S License Reviewing Officer Relationship Specialty Start Date End Date Hung Garcia MD [address] [place] [address] PCP - General 02/01/16 documented as of this encounter
--- OUTSIDE RECORDS SUMMARY | 2025-03-30 17:58 | XMS_ITS | Clinical Summary ---
Author Organization [facility] Address [address] [place] [address] Care Team Providers Care Bobbin Disker Name Role Phone Hung Garcia MD Primary Care Provider [phone] Source Comments [facility],non-owned Affiliates and Associated Physician Practices is amultiple site organization consisting of ambulatory clinics and hospital sitesin [place], [place], [place] and [place]. This disclosure is being madepursuant to the Care Everywhere program and may not contain all information available regarding this patient. 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 Gender Identity Not on file Sexual Orientation Not on file Plan of Treatment Health Maintenance Due Date Last Done Comments COLOGUARD (AGES 45-75) - COLON CA SCREENING 1955 COLON MONITORING 1954 COLONOSCOPY [...] SCREENING 2019 DEPRESSION SCREENING 06/11/2024 COVID-19 VACCINE ( - season) 2025 INFLUENZA VACCINE (#1) 2025 9, 04/07/2019, 04/30/2018, Additional history exists Respiratory Syncytial Virus (RSV) Vaccine Pt: or [...] A/C/Y/W VACCINE Aged Out No longer eligible based on patient's age to complete this topic Insurance [employer] MEDICARE ADV PPO SELF PAY NO INSURANCE Member Subscriber Plan / Payer (Ef fective for All Dates) Name:Junior Chen III Member ID:Not on file Relation to Subscriber:Not on file Name:JUNIOR CHEN III Subscriber ID:Not on file (Home) Address: [address] [place] [id number] Payer ID:Not on file Group ID:Not on file Type:Self Pay Address: [place], [place] Care Teams Bobbin Disker Relationship Specialty Start Date End Date Hung Garcia MD [address] [place] [address] PCP - General 02/01/16
--- OUTSIDE RECORDS SUMMARY | 2025-03-30 17:58 | XMS_ITS | Clinical Summary ---
Author Organization [facility] Address [address] [place] [address] Care Team Providers Care Liquor Department Manager Name Role Phone Hung Garcia MD Primary Care Provider Henrry Hancock MD Unavailable [phone] Allergies No known active allergies Medications [...] (01/25/2022): Added automatically from request for surgery [id number] Flap laceration of lower extremity 11/14/2021 Open wound of right knee, leg, and ankle 022 Overview (11/13/2021): Added automatically from request for surgery [id number] Assessment & Plan (11/14/2021 5:20 PM CDT): 66 year old man, s/p R knee arthroplasty at [facility] 09/30. Fell on R knee [...] on cefepime/vancomycin from 11/10-, now transferred to [facility] for gastrocnemius flap+skin graft coverage of a persistent skin defect which was performed on 11/14/21. Recs: -Stop Vancomycin, no evidence of MRSA or other gram positive cocci component to infection noted. -Continue cefepime, can reduce to 2g IV q12h for extermination supervisor therapy. -While on cefepime please get CBC/CMP [...] (11/09/2021): Added automatically from request for surgery [id number] Assessment & Plan (01/05/2022 12:31 PM CDT): [...] W/ IMPLANT 06/11/2020 - 06/10/2021 cervical spine AR ARTHRP KNE CONDYLE&PLATU MEDIAL&LAT COMPARTMENTS 09/14/2021 Right [...] week 09/18/2022 How often do you attend [facility] or amish services? 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 Bone Cement Right: Knee [employer] 05/10/2024 6191-1-010 / 0 / [id number] [employer] Simplex P Radiopaque Full Dose Cement Bone Sterile 6191-1- - S0 - [id number] Implanted:Qty: 1 on 03/06/2022 by Mary Alice Bermudez MD at [facility] Bone Cement Right: Knee [employer] 03/10/2024 6191-1-010 / 0 / [id number] [employer] Simplex P Radiopaque Full Dose Cement Bone Sterile 6191-1-010 - S0 - [id number] Implanted:Qty: 1 on 03/06/2022 by Mary Alice Bermudez MD at [facility] Bone Cement Right: Knee [employer] 08/09/2023 6191-1-010 / 0 / [id number] [employer] Nexgen Rotate Hinge Stem Knee 5 Plate Tibial Zimaloy Pmma Uhmwpe [id number] - S0 - [id number] Implanted:Qty: 1 on 03/06/2022 by Mary Alice Bermudez MD at [facility] Other - see comments Right: Knee [employer] [id number] 08/08/2024 [id number] / 0 / [id number] [employer] Nexgen 15mm 30mm 75mm Rotate Hinge Knee Tibia Straight Extension [id number] - S0 - [id number] Implanted:Qty: 1 on 03/06/2022 by Mary Alice Bermudez MD at [facility] Other - see comments Right: Knee [employer] [id number] 1 01/23/2030 [id number] / 0 / [id number] [employer] Persona Central Cone Knee Medium Augment Tibial Trabecular Metal [id number] - S0 - [id number] Implanted:Qty: 1 on 03/06/2022 by Mary Alice Bermudez MD at [facility] Other - see comments Right: Knee [employer] [id number] 1 03/22/2030 [id number] / 0 / [id number] [employer]Richco/O rtho Prep-Im Plug [place] Sponge Suction Hip Kit Thr Latex Free 631962 - S0 - [id number] Implanted:Qty: 1 on 03/06/2022 by Mary Alice Bermudez MD at [facility] Other - see comments Right: Knee [employer] rtho 11/23/2031 [id number] / 0 / [id number] [employer]/O rtho Carreno 25mm Plug Hip Femoral 16-21mm Restrictor Bone Cement Sterile 660334 - S0 - [id number] Implanted:Qty: 1 on 03/06/2022 by Mary Alice Bermudez MD at [facility] Other - see comments Right: Knee [employer]O rtho [id number] 08/20/2031 [id number] / 0 [id number] Joint Right: Knee Plates,Screws N/A: Cervica l-Thora cic Spine Description:C1-T2 [employer]ocom[employer] Stimulan Rapid Cure Kit Paste Woodworking Machinist 10cc 20cc Bone Void 620-010 - [id number] Implanted:Qty: 1 on 11/10/2021 by Mary Alice Bermudez MD at [facility] Right: Knee [employer] 02/09/2024 620-010 / / [id number] Description:Implant pause pe rformed [employer] Palacos R High Viscosity Cement 40gm Bone Green 6803954 - [id number] Implanted:Qty: 1 on 11/10/2021 by Mary Alice Bermudez MD at [facility] Right: Knee [employer] 02/08/2026 [id number] / / [id number] Description:Implant pause pe rformed [employer] Palacos R High Viscosity Cement 40gm Bone Green 1650686 - [id number] Implanted:Qty: 1 on 11/10/2021 by Mary Alice Bermudez MD at [facility] Right: Knee [employer] 02/08/2026 [id number] / / [id number] Description:Implant pause pe rformed [employer] Palacos R High Viscosity Cement 40gm Bone Green 5373262 - [id number] Implanted:Qty: 1 on 11/10/2021 by Mary Alice Bermudez MD at [facility] Right: Knee [employer] 02/08/2026 [id number] / / [id number] Description:Implant pause pe rformed [employer] [id number] Tibial Attune Cr Alpoly Sz 8 12mm - [id number] Implanted:Qty: 1 on 11/10/2021 by Mary Alice Bermudez MD at [facility] Right: Knee [employer] [id number] 08/08/2025 [id number] / / [id number] Description:Implant pause pe rformed [employer] Attune Cemented Cruciate Retaining Knee Right 7 Component Femoral [id number] - [id number] Implanted:Qty: 1 on 11/10/2021 by Mary Alice Bermudez MD at [facility] Right: Knee [employer] [id number] 09/09/2031 [id number] / / [id number] Description:Implant pause pe rformed [employer] Palacos R High Viscosity Cement 40gm Bone Green 8910418 - [id number] Implanted:Qty: 1 on 11/28/2021 by Mary Alice Bermudez MD at [facility] Right: Knee [employer] 04/10/2024 [id number] / / [id number] [employer] Palacos R High Viscosity Cement 40gm Bone Green 8367785 - [id number] Implanted:Qty: 2 on 11/28/2021 by Mary Alice Bermudez MD at [facility] Right: Knee [employer] 02/08/2026 [id number] / / [id number] [employer] Nexgen [id number] Rotate Hinge Machine Mold Knee 5-6 F Insert [id number] - [id number] Implanted:Qty: 1 on 03/06/2022 by Mary Alice Bermudez MD at [facility] Right: Knee [employer] [id number] 08/23/2025 [id number] / / [id number] [employer] Nexgen [id number] Rotate Hinge Knee Right F Component Femoral [id number] - [id number] Implanted:Qty: 1 on 03/06/2022 by Mary Alice Bermudez MD at [facility] Right: Knee [employer] [id number] 11/14/2025 [id number] / / [id number] [employer] Nexgen Od20 Mm L100 Mm L145 Mm Rotate Hinge Knee; Tibia Straight 38378074620 - [id number] Implanted:Qty: 1 on 03/06/2022 by Mary Alice Bermudez MD at [facility] Right: Knee [employer] 07/11/2024 [id number] / / [employer] Nexgen 10mm Distal F Block Augmentation Precoat [id number] - [id number] Implanted:Qty: 1 on 03/06/2022 by Mary Alice Bermudez MD at [facility] Right: Knee [employer] [id number] 08/08/2025 [id number] / / [id number] [employer] Nexgen 5mm Posterior F Block Augmentation Precoat 16864961601 - [id number] Implanted:Qty: 1 on 03/06/2022 by Mary Alice Bermudez MD at [facility] Right: Knee [employer] [id number] 02/08/2029 [id number] / / [id number] [employer] Nexgen 15mm Rotate Hinge Knee Distal F Augment Femoral Tivanium 73327258764 - [id number] Implanted:Qty: 1 on 03/06/2022 by Mary Alice Bermudez MD at [facility] Right: Knee [employer] [id number] 08/09/2023 [id number] / / [id number] Explanted Type Area Drum Puller Device Identifier Shelf Expiration Date Model / Serial / Lot Conmed Vahid Conmed 16mm Duraclip [id number] - [id number] Explanted:Qty: 1 on 09/16/2022 by Henrry Hancock MD at [facility] Clip N/A: Duodenum Conmed Vahid 08/18/2024 [id number] / / [id number] [facility] ADVANTAGE CHOICE PPO ADVANTAGE CHOICE PPO MEDICARE ADVANTAGE [employer] ADVANTAGE CHOICE PPO Advance Directives For more information, please contact: [phone] * Full Code (Latest Code Status on [...] 4:44 PM 11/13/2021 11:42 PM Care Teams Liquor Department Manager Relationship Specialty Start Date End Date Hung Garcia MD [address] [facility] [address] [place] [address] PCP - General Family Medicine 04/14/20 [place] [address] [place] [address] Consulting Physician Gastroenterology 09/19/22
--- OUTSIDE RECORDS SUMMARY | 2025-03-30 17:58 | XMS_ITS | Encounter Summary ---
Author Organization [facility] Address [address] [place] [address] Care Team Providers Care Rand Tacker Name Role Phone Hung Garcia MD Primary Care Provider [phone] Reason for Visit * Reason Onset Date Comments CONSULT TO HOSPITALIST 08/02/[address]ESS [address] ON [address] [facility] Encounter Details Date Type Department Care Team (Late st Contact Info) Description 08/02/2020 Telephone [facility] Admitting [address] [place] [address] [place] [address] [address] CONSULT TO HOSPITALIST (LEFT MESSAGE [...] file 08/02/2020 How often do you attend [facility] or oriental orthodox services? 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 No / Unsure 08/02/2020 7:03 AM ASSOCIATE CURATOR documented as of this encounter Plan of Treatment Not on file documented as of this encounter Visit Diagnoses Not on filedocumented in this encounter Care Teams Rand Tacker Relationship Specialty Start Date End Date Hung Garcia MD [address] [facility] [address] [facility] [address] [place] [address] PCP - General Family Practice 06/15/20 documented as of this encounter
== END 2025-03-30 15:20 | disposition home or self-care (01) ==
PROVIDERS: PCP Family Medicine; Visit Provider Physician Assistant Medical
DX: M54.2 Cervicalgia (principal); Z98.1 Arthrodesis status
CPT/HCPCS: 72040